=== PATIENT | female | born 1965 | race Two or more races ===

== ENCOUNTER 2020-05-10 09:40 | Emergency (ER) | payer OTHER, SELFPAY ==
[2020-05-10 09:46] VITALS: BP 174/83; PULSE 106; RESP 18; TEMP 37.5; O2SAT 97; BMI 29.2
--- NOTE | 2020-05-10 10:05 | ED_ITS ---
HPI - General Adult General Chief complaint: General Medical Stated complaint: flu symptoms [phone] Time Seen by Provider: 05/10/20 10:01 Source: patient Mode of arrival: ambulatory Limitations: no limitations History of Present Illness HPI narrative: 55 yo female previously healthy here with cough, sneezing, body aches, low grade fever x 4 days. Works has home health aide. Onset (ago): day(s) Associated symptoms: denies other symptoms Treatments prior to arrival: none Related Data Allergies Allergy/AdvReac Type Severity Reaction Status Date / Time No Known Allergies Allergy Unverified 04/22/20 15:46 N.K.D.A. Allergy Unknown Uncoded 12/06/18 00:00 Review of Systems Review of Systems: Yes all other systems are reviewed and are negative Constitutional: Constitutional: Reports body ache(s), Reports chills, Reports fever(s) (low grade temp ), Denies headache(s) and Denies weakness Eyes: Eyes: Denies change in vision ENT: Reports system reviewed and no additional complaints, except as documented, Denies dizziness and Denies headache(s) Comments: sneezing, rhinorrhea Cardiovascular: Cardiovascular: Denies chest pain, Denies leg edema and Denies dyspnea Respiratory: Respiratory: Reports cough and Denies dyspnea Gastrointestinal: Gastrointestinal: Denies abdominal pain, Denies diarrhea, Denies nausea and Denies vomiting Genitourinary: Genitourinary: Reports no additional female genitourinary complaints Musculoskeletal: Musculoskeletal: Denies abnormal gait, Reports myalgias, Denies arthralgias, Denies joint swelling, Denies numbness and Denies tingling Integumentary/Breasts: Skin/Breast: Denies rash Neurologic: Denies Abnormal speech present, Denies abnormal gait, Denies dizziness, Denies headache(s), Denies numbness, Denies tingling and Denies weakness [facility] Past Medical History Attestation statement: The following information was validated with the patient. Source: obtained from family Medical History HTN (hypertension) Kidney stones Social History Social History Advance Directives: No Advance Directives Information Provided: No Physical Exam Vital Signs and I&O and Narrative: Vital Signs and I&O: Vital Signs Temp 99.5 F 05/10/20 09:46 Pulse 106 H 05/10/20 09:46 Resp 18 05/10/20 09:46 BP 174/83 H 05/10/20 09:46 Pulse Ox 97 05/10/20 09:46 Intake & Output 05/09/20 05/10/20 05/10/20 18:59 06:59 18:59 Weight 72.575 kg Body Mass Index 29.2 Const: General: healthy appearing, comfortable and no acute distress Orientation/consciousness: patient oriented x3 Limitations: no limitations HENMT: Head: Yes normal to inspection Ears: hearing grossly normal bilaterally General nose exam: Normal external nose present Face and sinus: Yes normal facial exam Mouth: Normal oral and palatal mucosa present Throat: Yes posterior oropharynx normal Eyes: General: appearance normal, both eyes and all related structures Pupils: Equal, round and reactive pupils present Neck: Neck: Yes normal visual inspection Lymphatic: no lymphadenopathy noted Chest: Chest palpation & inspection: normal inspection of the chest Resp: Effort & Inspection: normal respiratory effort Auscultation: clear to auscultation bilaterally Cardio: Rate: regular rate Rhythm: regular rhythm GI: Inspection: Yes normal to inspection Back/Spine/Pelvis: Thoracic/Lumbar Spine: thoracic and lumbar spine normal to inspection Skin: General skin exam: no rashes or lesions noted Neuro: General: patient oriented x3 Cranial nerves: Yes Equal, round and reactive pupils present Speech: No Abnormal speech present Gait exam (Neuro): Normal gait present Motor exam (neuro): 5/5 motor strength present throughout and Motor abnormalities not present Sensory Exam: Normal double simultaneous stimulation for sensation Extrem: General: Yes normal to inspection Medical Decision Making MDM Narrative Medical decision making narrative: Exam c/w with viral syndrome. Exam is benign. Well appearing with stable vital signs. COVID testing sent. Reviewed worrisome signs/symptoms with patient and when to return to ED. Comfortable with discharge home. Discharge Plan Discharge Clinical Impression: Viral syndrome Patient Disposition: Home, Self-Care Instructions: Viral Syndrome (ED) Additional Instructions: We will call you in 1-2 days with your test results Motrin or Tylenol if able as needed for pain or fever Increase fluids, rest Referrals: Ruddy Lunsford MD [Primary Care Provider] - 2 days (if no better) Stand Alone Forms: Work/School Release Interventions: ED Discharge Assessment Last Done: 05/10/20 10:40 Discharge Date/Time: 05/10/20 10:45
== END 2020-05-10 10:45 | disposition home or self-care (01) ==
LOC: HO.ED 10:20
PROVIDERS: Emergency Provider Internal Medicine; PCP Internal Medicine
DX: B34.9 Viral infection, unspecified (principal); Z20.828 Contact with and (suspected) exposure to other viral communicable diseases
CPT/HCPCS: 36415; 87635; 99283

== ENCOUNTER 2020-05-24 09:38 | Outpatient (REF) | payer OTHER, SELFPAY | END 2020-05-24 09:39 | disposition home or self-care (01) | LOC: HO.LAB 09:38 | PROVIDERS: PCP Internal Medicine; Visit Provider Internal Medicine | DX: Z20.828 Contact with and (suspected) exposure to other viral communicable diseases (principal) | CPT/HCPCS: 87635 ==

== ENCOUNTER 2020-06-07 09:27 | Outpatient (REF) | payer OTHER, SELFPAY | END 2020-06-07 09:28 | disposition home or self-care (01) | LOC: HO.LAB 09:27 | PROVIDERS: PCP Internal Medicine; Visit Provider Internal Medicine | DX: Z20.828 Contact with and (suspected) exposure to other viral communicable diseases (principal) | CPT/HCPCS: U0003 ==

== ENCOUNTER 2020-08-02 08:44 | Outpatient (REF) | payer OTHER, SELFPAY ==
[2020-08-02 09:51] LABS: MANUAL DIFF FLAG NO
[2020-08-02 09:58] LABS: Glucose Urine UA NEG (NEG); Leukocyte Esterase Urine 1+ (NEG); Nitrite Urine POS (NEG); Specific Gravity - Urine 1.025 (1.005-1.025); Urine Blood TRACE (NEG); Urine Ketones NEG (NEG); Urine Protein NEG (NEG-TRACE)
[2020-08-02 10:03] LABS: Appearance Urine HAZY; Basophils Percent Auto 0.7 % (0-2); Color Urine YELLOW; Eosinophils Absolute Auto 0.2 X10*3/uL (0.0-0.4); Eosinophils Percent Auto 3.9 % (0-4); Hematocrit 40.9 % (37-47); Hemoglobin 12.6 g/dl (12.0-16.0); Imm Gran Abs Auto 0.02 X10*3/uL (0.00-0.03); Imm Gran Pct Auto 0.3 % (0.0-0.4); Lymphocytes Percent Auto 33.4 % (20-40); Mean Corpuscular HGB Conc 30.8 g/dl (31.0-35.0); Mean Corpuscular Hemoglobin 29.5 pg (27.0-33.0); Mean Corpuscular Volume 95.8 fL (80-98); Mean Platelet Volume 12.7 fL (9.4-12.3); Monocytes Absolute Auto 0.5 X10*3/uL (0.1-1.2); Monocytes Percent Auto 8.4 % (2-11); Neutrophils Absolute Auto 3.2 X10*3/uL (2.0-8.3); Neutrophils Percent Auto 53.3 % (45-73); Platelet Count 182 X10*3/uL (160-400); Red Blood Count 4.27 X10*6/uL (4.20-5.50); White Blood Count 5.9 X10*3/uL (4.8-10.8)
[2020-08-02 10:29] LABS: Alanine Aminotransferase 30 U/L (0-31); Albumin Level 4.6 g/dL (3.5-5.0); Alkaline Phosphatase 64 U/L (39-117); Anion Gap 13 (12-20); Aspartate Amino Transferase 22 U/L (5-31); Bilirubin Total 0.7 mg/dL (0.0-1.0); Blood Urea Nitrogen 14 mg/dL (9-16); Calcium 9.3 mg/dL (8.4-10.2); Carbon Dioxide 29 mmol/L (22-29); Chloride 106 mmol/L (96-108); Cholesterol 184 mg/dL; Estimated Glomerular Filt Rate > 60; Glucose Fasting 97 mg/dL (60-99); HDL Cholesterol 54 mg/dL; LDL Cholesterol Calculated 95 mg/dl; Potassium 5.3 mmol/l (3.3-5.1); Sodium 143 mmol/L (135-145); Total Protein 7.4 g/dL (6.5-8.0); Triglycerides 177 mg/dL
[2020-08-02 10:30] LABS: Bacteria Urine 3+ /LPF; Squamous Epithelial Cell Urine 1+ /LPF; WBC Urine 30-49 /HPF (0-4)
== END 2020-08-02 08:45 | disposition home or self-care (01) ==
LOC: HO.LAB 08:44
PROVIDERS: Visit Provider Internal Medicine
DX: I10 Essential (primary) hypertension (principal); R31.9 Hematuria, unspecified; K21.9 Gastro-esophageal reflux disease without esophagitis; E55.9 Vitamin D deficiency, unspecified; E78.5 Hyperlipidemia, unspecified; R79.89 Other specified abnormal findings of blood chemistry
CPT/HCPCS: 36415; 80053; 80061; 81001; 82306; 85025; 87086; 87088; 87186

== ENCOUNTER 2020-10-29 08:44 | Outpatient (REF) | payer OTHER, SELFPAY ==
[2020-10-29 09:33] LABS: MANUAL DIFF FLAG NO
[2020-10-29 09:38] LABS: Basophils Percent Auto 0.5 % (0-2); Eosinophils Absolute Auto 0.2 X10*3/uL (0.0-0.4); Eosinophils Percent Auto 3.3 % (0-4); Hematocrit 39.9 % (37-47); Hemoglobin 12.4 g/dl (12.0-16.0); Imm Gran Abs Auto 0.01 X10*3/uL (0.00-0.03); Imm Gran Pct Auto 0.2 % (0.0-0.4); Lymphocytes Absolute Auto 2.1 X10*3/uL (1.2-4.9); Lymphocytes Percent Auto 32.8 % (20-40); Mean Corpuscular HGB Conc 31.1 g/dl (31.0-35.0); Mean Corpuscular Hemoglobin 29.4 pg (27.0-33.0); Mean Corpuscular Volume 94.5 fL (80-98); Mean Platelet Volume 12.4 fL (9.4-12.3); Monocytes Absolute Auto 0.5 X10*3/uL (0.1-1.2); Monocytes Percent Auto 8.1 % (2-11); Neutrophils Absolute Auto 3.5 X10*3/uL (2.0-8.3); Neutrophils Percent Auto 55.1 % (45-73); Platelet Count 188 X10*3/uL (160-400); Red Blood Count 4.22 X10*6/uL (4.20-5.50); Red Cell Distribution Width 14.1 % (11.0-16.0); White Blood Count 6.3 X10*3/uL (4.8-10.8)
[2020-10-29 09:55] LABS: Alanine Aminotransferase 25 U/L (0-31); Albumin Level 4.6 g/dL (3.5-5.0); Alkaline Phosphatase 71 U/L (39-117); Anion Gap 14 (12-20); Aspartate Amino Transferase 17 U/L (5-31); Bilirubin Total 0.8 mg/dL (0.0-1.0); Blood Urea Nitrogen 19 mg/dL (9-16); Calcium 9.5 mg/dL (8.4-10.2); Carbon Dioxide 29 mmol/L (22-29); Chloride 107 mmol/L (96-108); Cholesterol 197 mg/dL; Estimated Glomerular Filt Rate 57; Glucose Fasting 103 mg/dL (60-99); Glucose Urine UA NEG (NEG); HDL Cholesterol 57 mg/dL; LDL Cholesterol Calculated 107 mg/dl; Leukocyte Esterase Urine 1+ (NEG); Nitrite Urine POS (NEG); Potassium 5.2 mmol/L (3.3-5.1); Sodium 145 mmol/L (135-145); Total Protein 7.5 g/dL (6.5-8.0); Triglycerides 168 mg/dL; UACC Culture Trigger YES; Urine Blood TRACE (NEG); Urine Ketones NEG (NEG); Urine Protein NEG (NEG-TRACE)
[2020-10-29 10:07] LABS: Appearance Urine HAZY; Color Urine YELLOW
[2020-10-29 10:17] LABS: Bacteria Urine 2+ /LPF; Squamous Epithelial Cell Urine 1+ /LPF; WBC Urine 50-75 /HPF (0-4)
[2020-10-29 10:19] LABS: TSH reflex Free T4 2.07 uIU/mL (0.32-4.0); Vitamin D 25-OH Total 28.6 ng/mL (>30)
== END 2020-10-29 08:45 | disposition home or self-care (01) ==
LOC: HO.LAB 08:44
PROVIDERS: PCP Internal Medicine; Visit Provider Internal Medicine
DX: E66.9 Obesity, unspecified (principal); E78.00 Pure hypercholesterolemia, unspecified; I10 Essential (primary) hypertension; R79.89 Other specified abnormal findings of blood chemistry; R31.21 Asymptomatic microscopic hematuria; K21.9 Gastro-esophageal reflux disease without esophagitis; E55.9 Vitamin D deficiency, unspecified
CPT/HCPCS: 36415; 80053; 80061; 81001; 81003; 82306; 84443; 85025; 87086; 87088; 87186

== ENCOUNTER 2021-02-01 08:39 | Outpatient (REF) | payer OTHER, SELFPAY ==
[2021-02-01 09:17] LABS: MANUAL DIFF FLAG NO
[2021-02-01 09:22] LABS: Basophils Percent Auto 0.5 % (0-2); Eosinophils Absolute Auto 0.2 X10*3/uL (0.0-0.4); Hematocrit 39.4 % (37-47); Hemoglobin 12.2 g/dl (12.0-16.0); Imm Gran Abs Auto 0.01 X10*3/uL (0.00-0.03); Imm Gran Pct Auto 0.2 % (0.0-0.4); Lymphocytes Absolute Auto 1.9 X10*3/uL (1.2-4.9); Lymphocytes Percent Auto 31.4 % (20-40); Mean Corpuscular Volume 93.8 fL (80-98); Mean Platelet Volume 12.1 fL (9.4-12.3); Monocytes Absolute Auto 0.5 X10*3/uL (0.1-1.2); Monocytes Percent Auto 8.1 % (2-11); Neutrophils Absolute Auto 3.4 X10*3/uL (2.0-8.3); Neutrophils Percent Auto 56.8 % (45-73); Platelet Count 185 X10*3/uL (160-400); Red Cell Distribution Width 13.4 % (11.0-16.0); White Blood Count 5.9 X10*3/uL (4.8-10.8)
[2021-02-01 09:42] LABS: Alanine Aminotransferase 19 U/L (0-31); Albumin Level 4.5 g/dL (3.5-5.0); Alkaline Phosphatase 71 U/L (39-117); Anion Gap 13 (12-20); Aspartate Amino Transferase 18 U/L (5-31); Bilirubin Total 0.5 mg/dL (0.0-1.0); Blood Urea Nitrogen 15 mg/dL (9-16); Calcium 9.4 mg/dL (8.4-10.2); Carbon Dioxide 29 mmol/L (22-29); Chloride 107 mmol/L (96-108); Cholesterol 174 mg/dL; Estimated Glomerular Filt Rate > 60; Glucose Fasting 104 mg/dL (60-99); HDL Cholesterol 49 mg/dL; LDL Cholesterol Calculated 97 mg/dl; Potassium 4.7 mmol/L (3.3-5.1); Sodium 144 mmol/L (135-145); Total Protein 7.3 g/dL (6.5-8.0); Triglycerides 141 mg/dL
[2021-02-01 10:00] LABS: Urine Cytology See Pathology rpt
[2021-02-01 10:05] LABS: TSH reflex Free T4 0.85 uIU/mL (0.32-4.0); Vitamin D 25-OH Total 30.4 ng/mL (>30)
[2021-02-01 10:16] LABS: Glucose Urine UA NEG (NEG); Leukocyte Esterase Urine 3+ (NEG); Nitrite Urine POS (NEG); UACC Culture Trigger YES; Urine Blood 1+ (NEG); Urine Ketones NEG (NEG); Urine Protein NEG (NEG-TRACE)
[2021-02-01 10:22] LABS: Appearance Urine HAZY; Color Urine YELLOW
[2021-02-01 10:35] LABS: Bacteria Urine 2+ /LPF; Mucus Urine 2+ /LPF; Renal Epithelial Cells Urine TRACE /LPF; Squamous Epithelial Cell Urine 1+ /LPF; WBC Urine TNTC /HPF (0-4)
== END 2021-02-01 08:40 | disposition home or self-care (01) ==
LOC: HO.LAB 08:39
PROVIDERS: PCP Internal Medicine; Visit Provider Internal Medicine
DX: I10 Essential (primary) hypertension (principal); K21.9 Gastro-esophageal reflux disease without esophagitis; R31.21 Asymptomatic microscopic hematuria; E66.9 Obesity, unspecified; E78.00 Pure hypercholesterolemia, unspecified; R79.89 Other specified abnormal findings of blood chemistry; E55.9 Vitamin D deficiency, unspecified
CPT/HCPCS: 36415; 80053; 80061; 81001; 81003; 82306; 84443; 85025; 87086; 87088; 87186; 88112

== ENCOUNTER 2021-02-28 13:20 | Outpatient (REF) | payer OTHER, SELFPAY ==
--- NOTE | ~2021-02-28 | MM_ITS ---
EXAMINATION: MM SCREENING DIGITAL BREAST TOMOSYNTHESIS, BILATERAL CLINICAL INFORMATION: Screening. Asymptomatic. The lifetime risk of breast cancer based on the Tyrer-Cuzick Model is 13%. COMPARISON: Mammography: 02/24/2020, 02/18/2019, 12/23/2015 TECHNIQUE: Digital breast tomosynthesis is performed in both the craniocaudal and mediolateral oblique views along with computer-aided detection (CAD). Synthesized 2D images are generated from the tomosynthesis. FINDINGS: There are scattered areas of fibroglandular density (ACR BI-RADS breast composition Category b). There are no significant masses, abnormal calcifications, or other abnormalities. Some small circumscribed nodularity again seen central and outer left breast, possibly intramammary nodes similar to prior exam. Small stable nodule central outer right breast. No developing density. The axilla and skin contours are unremarkable. MM/MM tomosynthesis screening BI IMPRESSION: No mammographic evidence of malignancy. ASSESSMENT: BI-RADS 2: Benign RECOMMENDATION: Routine annual mammography screening. This patient's information was entered into a reminder system with a target due date for their next mammogram.
== END 2021-02-28 13:21 | disposition home or self-care (01) ==
LOC: HO.MAMMO 13:20
PROVIDERS: Visit Provider Internal Medicine
DX: Z12.31 Encounter for screening mammogram for malignant neoplasm of breast (principal)
CPT/HCPCS: 77063; 77067

== ENCOUNTER 2021-03-16 10:43 | Outpatient (REF) | payer OTHER, SELFPAY ==
[2021-03-17 04:19] LABS: CT PCR NOT DETECTED (Not Detect.); NG PCR NOT DETECTED (Not Detect.)
[2021-03-17 09:24] LABS: BV Int Neg Control Negative (Negative); BV Int Pos Control Positive (Positive)
[2021-03-18 22:46] LABS: HPV mRNA E6/E7 rflx Not Detected (Not Detected)
== END 2021-03-16 10:44 | disposition home or self-care (01) ==
LOC: HO.LAB 10:43
PROVIDERS: PCP Internal Medicine; Visit Provider Advanced Practice Midwife
DX: Z01.419 Encounter for gynecological examination (general) (routine) without abnormal findings (principal); Z11.51 Encounter for screening for human papillomavirus (HPV); Z20.2 Contact with and (suspected) exposure to infections with a predominantly sexual mode of transmission
CPT/HCPCS: 87480; 87491; 87510; 87591; 87624; 87660; 88142

== ENCOUNTER → 2021-04-28 12:51 | Outpatient (BNVA) | payer OTHER, SELFPAY | PROVIDERS: PCP Internal Medicine; Referring Provider Internal Medicine; Visit Provider Physician Assistant | DX: Z12.11 Encounter for screening for malignant neoplasm of colon (principal) | CPT/HCPCS: 99202 ==

== ENCOUNTER 2021-05-06 08:17 | Outpatient (REF) | payer OTHER, SELFPAY ==
[2021-05-06 08:38] LABS: MANUAL DIFF FLAG NO
[2021-05-06 09:03] LABS: Basophils Percent Auto 0.5 % (0-2); Eosinophils Absolute Auto 0.2 X10*3/uL (0.0-0.4); Hemoglobin 12.2 g/dl (12.0-16.0); Imm Gran Abs Auto 0.02 X10*3/uL (0.00-0.03); Imm Gran Pct Auto 0.3 % (0.0-0.4); Lymphocytes Absolute Auto 1.8 X10*3/uL (1.2-4.9); Lymphocytes Percent Auto 30.5 % (20-40); Mean Corpuscular HGB Conc 31.3 g/dl (31.0-35.0); Mean Corpuscular Hemoglobin 29.7 pg (27.0-33.0); Mean Corpuscular Volume 94.9 fL (80-98); Mean Platelet Volume 12.1 fL (9.4-12.3); Monocytes Absolute Auto 0.4 X10*3/uL (0.1-1.2); Monocytes Percent Auto 7.4 % (2-11); Neutrophils Absolute Auto 3.5 X10*3/uL (2.0-8.3); Neutrophils Percent Auto 58.3 % (45-73); Platelet Count 183 X10*3/uL (160-400); Red Blood Count 4.11 X10*6/uL (4.20-5.50); Red Cell Distribution Width 13.6 % (11.0-16.0); White Blood Count 5.9 X10*3/uL (4.8-10.8)
[2021-05-06 09:20] LABS: Appearance Urine CLEAR; Color Urine YELLOW; Glucose Urine UA NEG (NEG); Leukocyte Esterase Urine NEG (NEG); Nitrite Urine NEG (NEG); UACC Culture Trigger NO; Urine Blood TRACE (NEG); Urine Ketones NEG (NEG); Urine Protein NEG (NEG-TRACE)
[2021-05-06 09:35] LABS: RBC Urine 0-2 /HPF (0); Squamous Epithelial Cell Urine TRACE /LPF; WBC Urine 0 /HPF (0-4)
[2021-05-06 09:45] LABS: Alanine Aminotransferase 21 U/L (0-31); Albumin Level 4.3 g/dL (3.5-5.0); Alkaline Phosphatase 63 U/L (39-117); Anion Gap 13 (12-20); Aspartate Amino Transferase 17 U/L (5-31); Bilirubin Total 0.8 mg/dL (0.0-1.0); Blood Urea Nitrogen 15 mg/dL (9-16); Calcium 9.4 mg/dL (8.4-10.2); Carbon Dioxide 28 mmol/L (22-29); Chloride 107 mmol/L (96-108); Cholesterol 198 mg/dL; Estimated Glomerular Filt Rate > 60; Glucose Fasting 102 mg/dL (60-99); HDL Cholesterol 55 mg/dL; LDL Cholesterol Calculated 111 mg/dl; Potassium 4.6 mmol/L (3.3-5.1); Sodium 143 mmol/L (135-145); Triglycerides 164 mg/dL
[2021-05-06 09:49] LABS: TSH reflex Free T4 2.02 uIU/mL (0.32-4.0); Vitamin D 25-OH Total 26.9 ng/mL (>30)
== END 2021-05-06 08:18 | disposition home or self-care (01) ==
LOC: HO.LAB 08:17
PROVIDERS: PCP Internal Medicine; Visit Provider Internal Medicine
DX: I10 Essential (primary) hypertension (principal); K21.9 Gastro-esophageal reflux disease without esophagitis; E78.00 Pure hypercholesterolemia, unspecified; R94.5 Abnormal results of liver function studies; E66.9 Obesity, unspecified; E55.9 Vitamin D deficiency, unspecified
CPT/HCPCS: 36415; 80053; 80061; 81001; 82306; 84443; 85025

== ENCOUNTER 2021-07-07 08:13 | Day surgery (SDC) | payer OTHER, SELFPAY ==
[2021-06-29 09:45] VITALS: BMI 30.5
--- NOTE | 2021-07-06 10:17 | HO.ANESPROP2 ---
Documented by User: Patricia Gonzalez NP 07/06/21 10:20 HPI - Anesthesia Eval Consult details Narrative: 56yo F for Colonoscopy PMFSH Active Problems Active Problems: All Active Problems (Updated 06/29/21 @ 09:45 by Purvi Gregorio, YENY) Annual physical exam (Acute) Colon cancer screening (Acute) Breast cancer screening by mammogram (Acute) Cervical cancer screening (Acute) Sinusitis (Acute) Urinary tract infection due to Klebsiella species (Acute) Well woman exam with routine gynecological exam (Acute) Encounter for screening colonoscopy (Acute) Dermatitis (Acute) Obesity (BMI 30-39.9) (Acute) Insomnia (Acute) Hematuria (Acute) GERD without esophagitis (Acute) Elevated LFTs (Acute) Vitamin D deficiency (Acute) Cervical spondylosis (Acute) Benign essential hypertension (Acute) Pure hypercholesterolemia (Acute) Past Medical History Medical History Benign essential hypertension Cervical spondylosis Closed fracture of left ankle COVID-19 vaccine series completed Dermatitis Elevated LFTs GERD without esophagitis Hematuria HTN (hypertension) Insomnia Kidney stones Obesity (BMI 30-39.9) Post-operative nausea and vomiting Pure hypercholesterolemia Vitamin D deficiency White coat syndrome with hypertension Family History Family History Father Heart attack Mother Breast cancer Sister Breast cancer Diabetes Surgical History Surgical History History of fracture of left ankle History of lithotripsy Social History Social History Housing: Apartment Are you a primary career development associate to a significant other at home: No Do you presently have visiting nurse or other home services: No Alcohol intake: never Patient Tobacco Use Status: Never used Tobacco Second Hand Smoke Exposure: No Use of substances other than those prescribed or required for medical reasons: No Have you been hit, kicked, punched, or otherwise hurt by someone within the past year? 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 Allergies Allergy/AdvReac Type Severity Reaction Status Date / Time No Known Allergies Allergy Verified 06/20/21 12:48 Exam Exam Date and Time: July 06, 2021 1017 Height,Weight and Vital Signs: Height 5 ft 2 in Weight 75.75 kg Assessment and Plan Assessment Anesthesia Assessment: Chart Reviewed Documented by User: Shayne Wright MD 07/07/21 08:42 PMFSH Past Medical History Medical History Benign essential hypertension Cervical spondylosis Closed fracture of left ankle COVID-19 vaccine series completed Dermatitis Elevated LFTs GERD without esophagitis Hematuria HTN (hypertension) Insomnia Kidney stones Obesity (BMI 30-39.9) Post-operative nausea and vomiting Pure hypercholesterolemia Vitamin D deficiency White coat syndrome with hypertension Family History Family History Father Heart attack Mother Breast cancer Sister Breast cancer Diabetes Surgical History Surgical History History of fracture of left ankle History of lithotripsy Social History Social History Housing: Apartment Are you a primary career development associate to a significant other at home: No Do you presently have visiting nurse or other home services: No Alcohol intake: never Patient Tobacco Use Status: Never used Tobacco Second Hand Smoke Exposure: No Use of substances other than those prescribed or required for medical reasons: No Have you been hit, kicked, punched, or otherwise hurt by someone within the past year? 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
[2021-07-07 08:39] VITALS: BP 163/101; PULSE 112; RESP 20; TEMP 36.8; O2SAT 99
--- NOTE | 2021-07-07 08:39 | MHC.SHP ---
Pre-Procedural Eval Section A Date of Service: 07/07/21 Section B Chief Complaint: screening Relevant Family History (Specify if Yes): No Relevant Social History: None Present Medications: see Short Stay Collaborative assessment Medical History: Significant History (Benign essential hypertension Cervical spondylosis Closed fracture of left ankle COVID-19 vaccine series completed Dermatitis Elevated LFTs GERD without esophagitis Hematuria HTN (hypertension) Insomnia Kidney stones Obesity (BMI 30-39.9) Post-operative nausea and vomiting Pure hypercholesterolemia ) History of Previous Operations: Relevant previous surgery/procedure and date(s) (History of fracture of left ankle History of lithotripsy) Allergies: Allergies Allergy/AdvReac Type Severity Reaction Status Date / Time No Known Allergies Allergy Verified 06/20/21 12:48 Review of Systems Sugical H&P ROS: Negative: Constitution, Cardiovascular, Respiratory, Neurological, Psychiatric, Hem-Onc, Allergic/Immunologic, Gastrointestinal, Genitourinary, Musculoskeletal, Integumentary, Endocrine and Eyes/Ears/Nose/Throat Exam Surgical H&P Exam: Normal: HEENT, Normal: Heart, Normal: Lungs, Normal: Extremities, Normal: Abdomen, Normal: Skin and Normal: Neurological Plan Diagnosis/Plan: Unchanged I have reviewed the history and physical and performed a pertinent physical examination on my patient. No changes have occurred unless specified.
--- NOTE | 2021-07-07 08:43 | HO.ANESPROP2 ---
[facility] Active Problems Active Problems: All Active Problems (Updated 06/29/21 @ 09:45 by Purvi Gregorio RN) Annual physical exam (Acute) Colon cancer screening (Acute) Breast cancer screening by mammogram (Acute) Cervical cancer screening (Acute) Sinusitis (Acute) Urinary tract infection due to Klebsiella species (Acute) Well woman exam with routine gynecological exam (Acute) Encounter for screening colonoscopy (Acute) Dermatitis (Acute) Obesity (BMI 30-39.9) (Acute) Insomnia (Acute) Hematuria (Acute) GERD without esophagitis (Acute) Elevated LFTs (Acute) Vitamin D deficiency (Acute) Cervical spondylosis (Acute) Benign essential hypertension (Acute) Pure hypercholesterolemia (Acute) Past Medical History Medical History Benign essential hypertension Cervical spondylosis Closed fracture of left ankle COVID-19 vaccine series completed Dermatitis Elevated LFTs GERD without esophagitis Hematuria HTN (hypertension) Insomnia Kidney stones Obesity (BMI 30-39.9) Post-operative nausea and vomiting Pure hypercholesterolemia Vitamin D deficiency White coat syndrome with hypertension Family History Family History Father Heart attack Mother Breast cancer Sister Breast cancer Diabetes Family history of problems with anesthesia: No Surgical History Surgical History History of fracture of left ankle History of lithotripsy History of Problems with Anesthesia: No Social History Social History Housing: Apartment Are you a primary home health care respiratory therapist to a significant other at home: No Do you presently have visiting nurse or other home services: No Alcohol intake: never Patient Tobacco Use Status: Never used Tobacco Second Hand Smoke Exposure: No Use of substances other than those prescribed or required for medical reasons: No Have you been hit, kicked, punched, or otherwise hurt by someone within the past year? 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 Allergies Allergy/AdvReac Type Severity Reaction Status Date / Time No Known Allergies Allergy Verified 06/20/21 12:48 Active Medications: Current Medications Lactated Ringer's (Lr) 1,000 mls @ 100 mls/hr IVCONT .Q10H BENJAMÍN Exam Exam Date and Time: July 07, 2021 0843 Height,Weight and Vital Signs: Height 5 ft 2 in Weight 75.75 kg Last Vital Signs Temp 98.3 F 07/07/21 08:39 Pulse 112 H 07/07/21 08:39 Resp 20 07/07/21 08:39 BP 163/101 H 07/07/21 08:39 Pulse Ox 99 07/07/21 08:39 Assessment and Plan Assessment Anesthesia Assessment: Anesthesia Plan Discussed and Chart Reviewed Final Anesthetic Review Family History of Problems with Anesthesia: No History of Problems with Anesthesia: No NPO: Yes ASA Class: II Final Preanesthetic Review: No Changes in Pt Med Stat Patient Risk: Intermediate Anesthetic Plan Anesthetic Plan: MAC: Disposition: Standard PACU
[2021-07-07] MEDS: Lactated Ringers 1,000 ML 100 ML IVCONT (08:56)
--- NOTE | 2021-07-07 09:17 | P.OP_ITS ---
Operative Note Operative Note Date of Service: 07/07/21 Narrative: Operative Information Procedure Description: Colonoscopy COLONOSCOPY Instrument: Olympus variable stiffness pediatric scope 190L Colonoscopy Monitoring: Vital signs and clinical assessment, continuous EKG monitoring, Pulse oximetry, Carbon Dioxide monitoring and blood pressure monitoring were done throughout the procedure. Colon withdrawal time was 14 minutes. Procedure: The patient was placed in the left lateral decubitis position and pre-procedure medications were administered. After a digital rectal examination of the ano-rectum, the video colonoscope was inserted into the rectum and advanced through the colon to the cecum/TI. The colonoscope was slowly withdrawn in a retrograde panoramic fashion and the colon mucosa was carefully examined including a retroflexed view of the rectum. Findings and interventions are described below. Procedure Difficulty: Findings: Terminal Ileum-normal Cecum: few diverticula seen Ascending Colon: normal Transverse Colon -normal Descending Colon: x 4 sessile polyps removed with cold snare ranging from 6-13 mm in length. Sigmoid Colon: moderate severe diverticulosis with mucosal hypertrophy Rectum: Retroflexion with mediums sized internal hemorrhoids, grade I Anorectum - normal Colon preparation: [place] Bowel Preparation Scale Right colon; 2 Transverse colon: 2 Left colon; 2 (0 = Unprepared colon segment with mucosa not seen due to solid stool that cannot be cleared. 1 = Portion of mucosa of the colon segment seen, but other areas of the colon segment not well seen due to staining, residual stool and/or opaque liquid. 2 = Minor amount of residual staining, small fragments of stool and/or opaque liquid, but mucosa of colon segment seen well. 3 = Entire mucosa of colon segment seen well with no residual staining, small fragments of stool or opaque liquid) Impression and Post Procedure Diagnosis: polyps internal hemorrhoids diverticular disease Plan: High fiber diet leaflet Avoid straining at stool, epsom salts and sitz bath, anusol supps or cream Repeat Colonoscopy in 3-4 years if adenomatous polyps, otherwise 10 years or earlier if clinically indicated Above findings were reviewed with the patient and relevant handouts were provided if indicated.
--- NOTE | 2021-07-07 09:17 | P.BOP_ITS ---
Brief Operative Note Date of Service: 07/07/21 Pre-op diagnosis: colon screening Post-op diagnosis: same Procedure: see op note Surgeon: Madyson Harvey MD Anesthesia: MAC Was an Pediatric Hospitalist used for this Procedure?: No Estimated blood loss (mL): 0 Condition: stable Disposition: PACU
[2021-07-07 09:58] VITALS: BP 138/75; PULSE 81; RESP 20; TEMP 36.8; O2SAT 98
[2021-07-07 10:16] VITALS: BP 131/84; PULSE 76; RESP 16; TEMP 36.8; O2SAT 99
== END 2021-07-07 10:36 | disposition home or self-care (01) ==
PROVIDERS: PCP Internal Medicine; Visit Provider Internal Medicine Gastroenterology
PROC: 0DJD8ZZ Inspection of Lower Intestinal Tract, Via Natural or Artificial Opening Endoscopic (ICD-10-PCS; CPT 45378; principal; 2021-07-07 09:20)
DX: Z12.11 Encounter for screening for malignant neoplasm of colon (principal); D12.4 Benign neoplasm of descending colon; K57.30 Diverticulosis of large intestine without perforation or abscess without bleeding; K64.0 First degree hemorrhoids; I10 Essential (primary) hypertension; E78.00 Pure hypercholesterolemia, unspecified; E55.9 Vitamin D deficiency, unspecified; E66.9 Obesity, unspecified; Z68.30 Body mass index [BMI] 30.0-30.9, adult
CPT/HCPCS: 45385; 88305

== ENCOUNTER → 2021-09-01 12:20 | Outpatient (BNVA) | payer OTHER, SELFPAY | PROVIDERS: PCP Internal Medicine; Referring Provider Internal Medicine; Visit Provider Physician Assistant | DX: K64.9 Unspecified hemorrhoids (principal); K57.30 Diverticulosis of large intestine without perforation or abscess without bleeding; D36.9 Benign neoplasm, unspecified site | CPT/HCPCS: 99212 ==

== ENCOUNTER 2021-09-27 08:21 | Outpatient (REF) | payer OTHER, SELFPAY ==
[2021-09-27 09:00] LABS: MANUAL DIFF FLAG NO
[2021-09-27 09:44] LABS: Basophils Percent Auto 0.5 % (0-2); Eosinophils Absolute Auto 0.2 X10*3/uL (0.0-0.4); Eosinophils Percent Auto 3.9 % (0-4); Hematocrit 41.2 % (37.0-47.0); Hemoglobin 12.9 g/dl (12.0-16.0); Imm Gran Abs Auto 0.01 X10*3/uL (0.00-0.03); Imm Gran Pct Auto 0.2 % (0.0-0.4); Lymphocytes Absolute Auto 2.2 X10*3/uL (1.2-4.9); Lymphocytes Percent Auto 36.3 % (20-40); Mean Corpuscular HGB Conc 31.3 g/dl (31.0-35.0); Mean Corpuscular Hemoglobin 29.4 pg (27.0-33.0); Mean Corpuscular Volume 93.8 fL (80.0-98.0); Mean Platelet Volume 12.5 fL (9.4-12.3); Monocytes Absolute Auto 0.5 X10*3/uL (0.1-1.2); Monocytes Percent Auto 7.9 % (2-11); Neutrophils Absolute Auto 3.1 x10*3/uL (2.0-8.3); Neutrophils Percent Auto 51.2 % (45-73); Platelet Count 181 X10*3/uL (160-400); Red Blood Count 4.39 X10*6/uL (4.20-5.50); Red Cell Distribution Width 13.6 % (11.0-16.0)
[2021-09-27 10:21] LABS: Alanine Aminotransferase 19 U/L (0-31); Albumin Level 4.4 g/dL (3.5-5.0); Alkaline Phosphatase 62 U/L (39-117); Anion Gap 13 (12-20); Aspartate Amino Transferase 18 U/L (5-31); Bilirubin Total 0.8 mg/dL (0.0-1.0); Blood Urea Nitrogen 12 mg/dL (9-16); Calcium 9.4 mg/dL (8.4-10.2); Carbon Dioxide 28 mmol/L (22-29); Chloride 106 mmol/L (96-108); Cholesterol 192 mg/dL; Estimated Glomerular Filt Rate > 60; Glucose Fasting 98 mg/dL (60-99); HDL Cholesterol 52 mg/dL; LDL Cholesterol Calculated 106 mg/dl; Potassium 4.8 mmol/L (3.3-5.1); Sodium 142 mmol/L (135-145); Total Protein 7.2 g/dL (6.5-8.0); Triglycerides 172 mg/dL
[2021-09-27 10:27] LABS: Appearance Urine HAZY; Color Urine YELLOW; Glucose Urine UA NEG (NEG); Leukocyte Esterase Urine NEG (NEG); Nitrite Urine NEG (NEG); UACC Culture Trigger NO; Urine Blood TRACE (NEG); Urine Ketones NEG (NEG); Urine Protein NEG (NEG-TRACE)
[2021-09-27 10:31] LABS: TSH reflex Free T4 1.36 uIU/mL (0.32-4.0); Vitamin D 25-OH Total 26.8 ng/mL (>30)
[2021-09-27 11:27] LABS: RBC Urine 0-2 /HPF (0); Squamous Epithelial Cell Urine TRACE /LPF; WBC Urine 0 /HPF (0-4)
== END 2021-09-27 08:22 | disposition home or self-care (01) ==
LOC: HO.LAB 08:21
PROVIDERS: PCP Internal Medicine; Visit Provider Internal Medicine
DX: I10 Essential (primary) hypertension (principal); E78.00 Pure hypercholesterolemia, unspecified; E55.9 Vitamin D deficiency, unspecified
CPT/HCPCS: 36415; 80053; 80061; 81001; 82306; 84443; 85025

== ENCOUNTER 2021-10-03 12:02 | Outpatient (REF) | payer OTHER, SELFPAY ==
[2021-10-04 04:51] LABS: HBS Num1 31.73 mIU/mL (0-7.99); HBc Num1 0.16 S/CO (0.00-0.79); Hepatitis B Core Antibody Nonreactive (Nonreactive); ~HepC Num1 0.12 S/CO (0.00-0.79); ~Hepatitis B Surface Antibody REACTIVE (Nonreactive); ~Hepatitis C Antibody Nonreactive (Nonreactive)
[2021-10-04 05:00] LABS: HBsAGNum1 0.18 S/CO (0.00-0.99); Hepatitis B Surface Antigen Negative (Negative)
== END 2021-10-03 12:03 | disposition home or self-care (01) ==
LOC: HO.LAB 12:02
PROVIDERS: PCP Internal Medicine; Visit Provider Internal Medicine
DX: Z20.5 Contact with and (suspected) exposure to viral hepatitis (principal)
CPT/HCPCS: 36415; 86704; 86706; 86803; 87340

== ENCOUNTER 2021-12-29 08:21 | Outpatient (REF) | payer OTHER, SELFPAY ==
[2021-12-29 08:44] LABS: MANUAL DIFF FLAG NO
[2021-12-29 09:23] LABS: Basophils Percent Auto 0.7 % (0-2); Eosinophils Absolute Auto 0.2 X10*3/uL (0.0-0.4); Eosinophils Percent Auto 3.7 % (0-4); Hematocrit 38.7 % (37.0-47.0); Hemoglobin 12.1 g/dl (12.0-16.0); Imm Gran Abs Auto 0.02 X10*3/uL (0.00-0.03); Imm Gran Pct Auto 0.4 % (0.0-0.4); Lymphocytes Absolute Auto 2.1 X10*3/uL (1.2-4.9); Lymphocytes Percent Auto 37.3 % (20-40); Mean Corpuscular HGB Conc 31.3 g/dl (31.0-35.0); Mean Corpuscular Hemoglobin 29.6 pg (27.0-33.0); Mean Corpuscular Volume 94.6 fL (80.0-98.0); Mean Platelet Volume 12.3 fL (9.4-12.3); Monocytes Absolute Auto 0.5 X10*3/uL (0.1-1.2); Monocytes Percent Auto 7.9 % (2-11); Neutrophils Absolute Auto 2.9 x10*3/uL (2.0-8.3); Platelet Count 182 X10*3/uL (160-400); Red Blood Count 4.09 X10*6/uL (4.20-5.50); Red Cell Distribution Width 13.6 % (11.0-16.0); White Blood Count 5.7 X10*3/uL (4.8-10.8)
[2021-12-29 09:49] LABS: Appearance Urine CLEAR; Color Urine YELLOW; Glucose Urine UA NEG (NEG); Leukocyte Esterase Urine NEG (NEG); Nitrite Urine NEG (NEG); UACC Culture Trigger NO; Urine Blood TRACE (NEG); Urine Ketones NEG (NEG); Urine Protein NEG (NEG-TRACE)
[2021-12-29 09:52] LABS: Alanine Aminotransferase 19 U/L (0-31); Albumin Level 4.2 g/dL (3.5-5.0); Alkaline Phosphatase 59 U/L (39-117); Anion Gap 12 (12-20); Aspartate Amino Transferase 16 U/L (5-31); Bilirubin Total 0.7 mg/dL (0.0-1.0); Blood Urea Nitrogen 14 mg/dL (9-16); Calcium 9.3 mg/dL (8.4-10.2); Carbon Dioxide 28 mmol/L (22-29); Chloride 106 mmol/L (96-108); Cholesterol 180 mg/dL; Estimated Glomerular Filt Rate > 60; Glucose Fasting 95 mg/dL (60-99); HDL Cholesterol 50 mg/dL; LDL Cholesterol Calculated 96 mg/dl; Potassium 4.4 mmol/L (3.3-5.1); Sodium 142 mmol/L (135-145); Total Protein 6.9 g/dL (6.5-8.0); Triglycerides 174 mg/dL
[2021-12-29 10:17] LABS: TSH reflex Free T4 1.34 uIU/mL (0.32-4.0)
[2021-12-29 10:20] LABS: RBC Urine 0-2 /HPF (0); Squamous Epithelial Cell Urine 2+ /LPF; WBC Urine 0 /HPF (0-4)
== END 2021-12-29 08:22 | disposition home or self-care (01) ==
LOC: HO.LAB 08:21
PROVIDERS: PCP Internal Medicine; Visit Provider Internal Medicine
DX: I10 Essential (primary) hypertension (principal); E55.9 Vitamin D deficiency, unspecified; E78.00 Pure hypercholesterolemia, unspecified
CPT/HCPCS: 36415; 80053; 80061; 81001; 82306; 84443; 85025

== ENCOUNTER 2022-01-09 13:14 | Outpatient (REF) | payer OTHER, SELFPAY ==
--- NOTE | ~2022-01-09 | XR_ITS ---
EXAMINATION: XR LUMBOSACRAL SPINE CLINICAL INFORMATION: Low back pain. COMPARISON: Lumbar spine radiographs on 11/29/2012. TECHNIQUE: 3 views of the lumbosacral spine. FINDINGS: There are 5 [id number] lumbar vertebral bodies. Vertebral body heights are maintained. There is mild intervertebral disc height loss at L5-S1 with tiny endplate osteophytes seen at L4 and L5. Mild facet arthropathy from L5 to S1. The paravertebral soft tissues are within normal limits. The SI joints appear normal. XR/XR lumbar spine 2-3V IMPRESSION: Mild disc height loss at L5-S1 as well as mild L5-S1 facet arthropathy.
== END 2022-01-09 13:15 | disposition home or self-care (01) ==
LOC: HO.XRAY 13:14
PROVIDERS: PCP Internal Medicine; Visit Provider Internal Medicine
DX: M54.50 Low back pain, unspecified (principal)
CPT/HCPCS: 72100

== ENCOUNTER 2022-02-25 10:55 | Emergency (ER) | payer OTHER, SELFPAY ==
--- NOTE | ~2022-02-25 | XR_ITS ---
EXAMINATION: XR ELBOW, RIGHT CLINICAL INFORMATION: History of fall COMPARISON: None TECHNIQUE: Four views of the right elbow. XR/XR elbow RT min 3V FINDINGS AND IMPRESSION: There is a subtle, nondisplaced fracture of the anterolateral radial neck. Otherwise, bones are intact. The anterior and posterior fat pads are displaced from an elbow joint effusion. The alignment is maintained at the radiocapitellar and ulnohumeral joints.
[2022-02-25 11:42] VITALS: BP 167/88; PULSE 92; RESP 18; TEMP 36.4; O2SAT 98; BMI 29.6
--- NOTE | 2022-02-25 12:45 | ED_ITS ---
HPI - Extremity Problem General Chief complaint: Extremity Injury, Upper Stated complaint: R Elbow Injury 02/24/22 Time Seen by Provider: 02/25/22 12:33 Source: patient Mode of arrival: ambulatory Limitations: no limitations History of Present Illness HPI Narrative: 56-year-old female right handed here with reports of right elbow pain. Patient tells me yesterday she tripped and fell catching herself with her right hand. She felt okay initially but this morning when she woke up she noticed some pain over the right elbow with limited range of motion due to pain. She denies any shoulder pain or wrist or hand pain. She denies any head strike or loss of consciousness. No associated weakness, numbness or tingling of the extremity. Related Data Previous Rx's Medication Instructions Recorded miconazole nitrate 2 % topical 1 appl topical BID #85 grams 03/16/21 powder ergocalciferol (vitamin D2) 1,250 1,250 mcg PO QWEEK #4 caps 06/20/21 mcg (50,000 unit) capsule docusate sodium 100 mg capsule 200 mg PO BEDTIME #60 caps 09/01/21 (Colace) methylcellulose (laxative) 500 mg 500 mg PO BID #60 tabs 09/01/21 tablet (Citrucel) polyethylene glycol 3350 17 17 g PO DAILY 30 days #510 grams 09/06/21 gram/dose oral powder trazodone 50 mg tablet 50 mg PO BEDTIME #30 tabs 09/19/21 ibuprofen 600 mg tablet 600 mg PO BID PRN pain 30 days #90 11/03/21 tabs loratadine 10 mg tablet 10 mg PO DAILY #30 tabs 12/05/21 lisinopril 30 mg tablet 30 mg PO DAILY #90 tabs 12/27/21 atorvastatin 10 mg tablet 10 mg PO DAILY #90 tabs 01/03/22 lorazepam 0.5 mg tablet See Rx Instructions .Route 01/06/22 .COMPLEX PRN anxiety #10 tabs omeprazole 20 mg capsule,delayed 20 mg PO QAM 30 days #30 caps 02/15/22 release tramadol 50 mg tablet 50 mg PO TID PRN pain 30 days #90 02/15/22 tabs Allergies Allergy/AdvReac Type Severity Reaction Status Date / Time naproxen Allergy Vomiting Verified 02/25/22 11:44 Review of Systems Review of Systems: Yes all other systems are reviewed and are negative Constitutional: Constitutional: Reports no additional constitutional complaints, Denies body ache(s), Denies chills, Denies fever(s), Denies headache(s) and Denies weakness Eyes: Eyes: Reports no additional eye complaints and Denies change in vision ENT: Reports system reviewed and no additional complaints, except as documented, Denies dizziness, Denies headache(s), Denies nasal congestion, Denies nasal discharge and Denies neck pain Cardiovascular: Cardiovascular: Reports no additional cardiovascular complaints, Denies chest pain, Denies leg edema and Denies dyspnea Respiratory: Respiratory: Reports no additional respiratory complaints, Denies cough and Denies dyspnea Gastrointestinal: Gastrointestinal: Reports no additional gastrointestinal complaints, Denies abdominal pain, Denies diarrhea, Denies nausea and Denies vomiting Genitourinary: Genitourinary: Reports no additional female genitourinary complaints and Denies urinary incontinence Musculoskeletal: Musculoskeletal: Reports no additional musculoskeletal complaints, Denies back pain, Reports arthralgias, Denies joint swelling, Reports limited range of motion, Denies neck pain, Denies numbness and Denies tingling Integumentary/Breasts: Skin/Breast: Reports system reviewed and no additional complaints, except as docu and Denies rash Neurologic: Reports system reviewed and no additional complaints, except as documented, Denies Abnormal speech present, Denies dizziness, Denies headache(s), Denies numbness, Denies tingling and Denies weakness PMFSH Past Medical History Attestation statement: The following information was validated with the patient. Source: old records reviewed and nursing notes reviewed Medical History Benign essential hypertension Cervical spondylosis Closed fracture of left ankle COVID-19 vaccine series completed Dermatitis Elevated LFTs GERD without esophagitis Hematuria HTN (hypertension) Insomnia Kidney stones Obesity (BMI 30-39.9) Post-operative nausea and vomiting Pure hypercholesterolemia Vitamin D deficiency White coat syndrome with hypertension Surgical History History of fracture of left ankle History of lithotripsy Hx of colonoscopy Family History Family History Father Heart attack Mother Breast cancer Sister Breast cancer Diabetes Social History Social History Housing: Apartment Are you a primary career development manager to a significant other at home: No Do you presently have visiting nurse or other home services: No Alcohol intake: never Patient Tobacco Use Status: Never used Tobacco Second Hand Smoke Exposure: No Use of substances other than those prescribed or required for medical reasons: No Advance Directives: No Advance Directives Information Provided: No service: No Current occupational status: employed Current occupation: home care Cognitive needs: No Hearing needs: No Vision needs: No Physical Exam Vital Signs: Vital Signs: Last Vital Signs Temp 97.6 F 02/25/22 11:42 Pulse 92 02/25/22 11:42 Resp 18 02/25/22 11:42 BP 167/88 H 02/25/22 11:42 Pulse Ox 98 02/25/22 11:42 O2 Del Method 02/25/22 11:42 BMI result Body Mass Index 29.6 Const: General: cooperative, healthy appearing, comfortable and no acute distress Orientation/consciousness: patient oriented x3 Limitations: no limitations HEENT: Head: Yes normal to inspection Ears: hearing grossly normal bilaterally General nose exam: Normal external nose present Face and sinus: Yes normal facial exam Mouth: Normal oral and palatal mucosa present Throat: Yes posterior oropharynx normal Eyes: General: appearance normal, both eyes and all related structures Pupils: Equal, round and reactive pupils present Neck: Neck: Yes normal visual inspection Chest: Chest palpation & inspection: normal inspection of the chest Resp: Effort & Inspection: normal respiratory effort Auscultation: clear to auscultation bilaterally Cardio: Rate: regular rate Rhythm: regular rhythm Peripheral pulses: Peripheral pulses 2+ throughout GI: Inspection: Yes normal to inspection Palpation (GI): Soft to palpation and nontender Auscultation: normal bowel sounds Back/Spine/Pelvis: Thoracic/Lumbar Spine: thoracic and lumbar spine normal to inspection Skin: General skin exam: no rashes or lesions noted Neuro: General: patient oriented x3, no focal motor deficits and normal sensation to monofilament Cranial nerves: Yes Equal, round and reactive pupils present Cognition (Neuro): normal cognition Speech: No Abnormal speech present Gait exam (Neuro): Normal gait present Motor exam (neuro): 5/5 motor strength present throughout Extrem: Other: Tenderness over the lateral right proximal radius with limited extension due to pain. Neurovascularly intact distally. Normal radial and ulnar pulses. No obvious deformity noted General: Yes normal to inspection Course Course Course Narrative: X-ray show There is a subtle, nondisplaced fracture of the anterolateral radial neck. Otherwise, bones are intact. The anterior and posterior fat pads are displaced from an elbow joint effusion. The alignment is maintained at the radiocapitellar and ulnohumeral joints.? -patient placed in a sling. Recommended rice at home. Recommended continuing NSAID and tramadol which she has at home only as needed. Recommend follow-up with Orthopedics. Reviewed worrisome signs and symptoms of when to return to the emergency department. Comfortable discharge home. MDM - Extremity (Nontraumatic) MDM Narrative Medical decision making narrative: 56-year-old female with right elbow pain after fall on an outstretched hand yesterday that was mechanical in nature. Will obtain x-rays due to tenderness over the proximal radius and limited extension due to pain Medical Records Attestation: I reviewed the patient's medical records. Lab Data Attestation: I reviewed the patient's lab results. Imaging Data Elbow x-ray right: Attestation: I personally reviewed and interpreted this imaging study as follows: Radiologist's impression: EFREN: None? TECHNIQUE: Four views of the right elbow. XR/XR elbow RT min 3V FINDINGS AND IMPRESSION: There is a subtle, nondisplaced fracture of the anterolateral radial neck. Otherwise, bones are intact. The anterior and posterior fat pads are displaced from an elbow joint effusion. The alignment is maintained at the radiocapitellar and ulnohumeral joints.? ? Procedures Orthopedic Splinting/Casting Injury #1: Side: right Upper Extremity Injury Location: elbow Upper Extremity Immobilizer: sling/shoulder immobilizer Discharge Plan Discharge Clinical Impression: Closed fracture of radial head Patient Disposition: Home, Self-Care Instructions: Elbow Fracture (ED) Additional Instructions: Use the sling for comfort Apply ice 20 minutes on 20 minutes off Limit use of the extremity Take Motrin 3 times daily. Take tramadol only as needed Call Orthopedics for follow-up Prescriptions: No Action polyethylene glycol 3350 17 gram/dose powder 17 g PO DAILY 30 Days Qty: 510 5RF trazodone 50 mg tablet 50 mg PO BEDTIME Qty: 30 1RF ibuprofen 600 mg tablet 600 mg PO BID PRN (Reason: pain) 30 Days Qty: 90 3RF Rx Instructions: Take with food loratadine 10 mg tablet 10 mg PO DAILY Qty: 30 2RF lisinopril 30 mg tablet 30 mg PO DAILY Qty: 90 0RF atorvastatin 10 mg tablet 10 mg PO DAILY Qty: 90 1RF lorazepam 0.5 mg tablet See Rx Instructions .ROUTE .COMPLEX PRN (Reason: anxiety) Qty: 10 0RF Rx Instructions: Take 1 tablet 30 minutes before boarding plane. May take a 2nd dose after 20 to 30 minutes if needed PRN; omeprazole 20 mg capsule,delayed release(DR/EC) 20 mg PO QAM 30 Days Qty: 30 5RF tramadol 50 mg tablet 50 mg PO TID PRN (Reason: pain) 30 Days Qty: 90 0RF ergocalciferol (vitamin D2) 1,250 mcg (50,000 unit) capsule 1,250 mcg PO QWEEK Qty: 4 11RF miconazole nitrate 2 % powder 1 appl topical BID Qty: 85 1RF docusate sodium [Colace] 100 mg capsule 200 mg PO BEDTIME Qty: 60 5RF Citrucel 500 mg tablet 500 mg PO BID Qty: 60 5RF Referrals: [facility] [place] Orthopedic Surgeons [Provider Group] Stand Alone Forms: Work/School Release Interventions: ED Discharge Assessment Last Done: 02/25/22 13:07
== END 2022-02-25 13:15 | disposition home or self-care (01) ==
PROVIDERS: Emergency Provider Student in an Organized Health Care Education/Training Program; PCP Internal Medicine
DX: S52.134A Nondisplaced fracture of neck of right radius, initial encounter for closed fracture (principal); X50.9XXA Other and unspecified overexertion or strenuous movements or postures, initial encounter; Y93.89 Activity, other specified; Y92.018 Other place in single-family (private) house as the place of occurrence of the external cause; Y99.9 Unspecified external cause status
CPT/HCPCS: 73080; 99283

== ENCOUNTER → 2022-03-01 14:27 | Outpatient (BNVA) | payer OTHER, SELFPAY | PROVIDERS: PCP Internal Medicine; Visit Provider Physician Assistant | DX: S52.121A Displaced fracture of head of right radius, initial encounter for closed fracture (principal) | CPT/HCPCS: 99202 ==

== ENCOUNTER 2022-03-15 07:28 | Outpatient (REF) | payer OTHER, SELFPAY ==
--- NOTE | ~2022-03-15 | XR_ITS ---
EXAMINATION: XR ELBOW, RIGHT CLINICAL INFORMATION: Pain. COMPARISON: 02/25/22 TECHNIQUE: Three views of the right elbow. FINDINGS: There is a nearly nondisplaced intra-articular radial head fracture. This involves approximately 50% of the articular surface. A component likely extends to the proximal metaphysis. The distal humerus appears intact. The proximal ulna appears intact. There may be a lipohemarthrosis. XR/XR elbow RT min 3V IMPRESSION: Intra-articular radial head fracture. Joint fluid.
== END 2022-03-15 07:29 | disposition home or self-care (01) ==
LOC: HO.HOSX 07:28
PROVIDERS: Visit Provider Physician Assistant
DX: M25.521 Pain in right elbow (principal); M25.571 Pain in right ankle and joints of right foot
CPT/HCPCS: 73080

== ENCOUNTER 2022-04-06 10:22 | Outpatient (REF) | payer OTHER, SELFPAY ==
--- NOTE | ~2022-04-06 | MM_ITS ---
EXAMINATION: MM SCREENING DIGITAL BREAST TOMOSYNTHESIS, BILATERAL CLINICAL INFORMATION: Screening. Asymptomatic. The lifetime risk of breast cancer based on the Tyrer-Cuzick Model is 17%. COMPARISON: Mammography: 02/28/2021, 02/24/2020, 02/18/2019 TECHNIQUE: Digital breast tomosynthesis is performed in both the craniocaudal and mediolateral oblique views along with computer-aided detection (CAD). Synthesized 2D images are generated from the tomosynthesis. FINDINGS: There are scattered areas of fibroglandular density (ACR BI-RADS breast composition Category b). There are no significant masses, abnormal calcifications, or other abnormalities. No architectural abnormality or significant changes. The axilla and skin contours are unremarkable. MM/MM tomosynthesis screening BI IMPRESSION: No significant changes from prior exams. ASSESSMENT: BI-RADS 1: Negative RECOMMENDATION: Routine annual mammography screening. This patient's information was entered into a reminder system with a target due date for their next mammogram.
== END 2022-04-06 10:23 | disposition home or self-care (01) ==
LOC: HO.MAMMO 10:22
PROVIDERS: PCP Internal Medicine; Visit Provider Internal Medicine
DX: Z12.31 Encounter for screening mammogram for malignant neoplasm of breast (principal)
CPT/HCPCS: 77063; 77067

== ENCOUNTER 2022-04-26 12:41 | Outpatient (REF) | payer OTHER, SELFPAY ==
--- NOTE | ~2022-04-26 | XR_ITS ---
EXAMINATION: XR ELBOW, RIGHT CLINICAL INFORMATION: Right elbow pain. COMPARISON: March 15, 2022. TECHNIQUE: AP, lateral, and oblique views of the right elbow. XR/XR elbow RT min 3V FINDINGS/IMPRESSION: Examination again demonstrates a depressed fracture involving the radial aspect of the humeral head. The fracture plane extends to the joint space. The fracture fragments may be slightly more displaced compared with most recent prior study from March 15, 2022, although comparison is somewhat difficult due to differences in obliquity. There may be mild callus formation. Fluid remains within the elbow joint capsule, with elevation of the anterior fat-pad and visualization of the posterior fat pad. No other fracture or dislocation is identified.
== END 2022-04-26 12:42 | disposition home or self-care (01) ==
LOC: HO.HOSX 12:41
PROVIDERS: Visit Provider Physician Assistant
DX: M25.521 Pain in right elbow (principal)
CPT/HCPCS: 73080

== ENCOUNTER 2022-06-02 11:30 | Outpatient (RCR) | payer OTHER, SELFPAY ==
--- NOTE | 2022-04-12 13:38 | MHC.OT.EP ---
[address] [phone] Occupational Therapy Plan of Care Date of Evaluation: 04/12/22 Diagnosis: Right radial head fx Assessment: Nichelle is a 57 yo right hand dominant female that presents about 6.5 weeks s/p fall w/ right radial head fx. She was initially placed in a sling, now removed and able to participate in light daily activities. On assessment, she has mild pain with decreased end range elbow ex/flex (30/125). She has good understanding of precautions w/ activity modification and avoiding heavy lifting and twisting of her arm. I expect she will do very well w/ progression of therapy program to return to full work duties and daily activities. Frequency and Duration: The patient will be seen 2x.wk for 4 weeks Short Term Goals: Ind w/ HEP Ind w/ use of heat/ice appropriately Elbow ext to 20 degrees Elbow flex to 135 degrees Mill Tender Second Operator Goals: Pt to demo lift and carry 15lb bimanually in simulation of ADL task Pt to complete hair care w/ ease Pt to report pain free w/ light use of right arm Right gross grasp 50lb Quickdash score 30 Elbow ext 10 degrees Elbow flex 145 degrees Treatment Plan: Therapeutic Exercise Therapeutic Activity Home Exercise Program Patient Education Edema Control ADL Training Ultrasound MHP Cold Packs Joint Mobilization Soft Tissue Mobilization Kinesiotaping Electronically Signed By: Aby Landeros OTR/L Please Sign and return to therapist. Thank you once again for your referral.
--- NOTE | 2022-04-24 11:55 | MHC.OT.OP ---
[address] [phone] F: [phone] Occupational Therapy Progress Note Diagnosis: Right radial head fx Date of Surgery: Date of Evaluation: 04/12/22 Treatments to Date: 4 Subjective: Yesterday was pretty sore, it's stiff when I wake up Pain Score: 4 Pain Location: Right elbow Objective Measures: Elbow 30/128 -> 14/140 after heat and ROM Status: Progressing Assessment: Nichelle is about 8 weeks s/p radial head fx, good follow through w/ HEP and improving elbow ext from initial visit, decreased carry over in range from last week but good gains in treatment today. Pt very motivated, still w/ moderate pain, using heat and cold for comfort. Still doing light duty at work and beginning to progress activity. Short Term Goals: Ind w/ HEP Ind w/ use of heat/ice appropriately Elbow ext to 20 degrees Elbow flex to 135 degrees [facility] Goals: Pt to demo lift and carry 15lb bimanually in simulation of ADL task Pt to complete hair care w/ ease Pt to report pain free w/ light use of right arm Right gross grasp 50lb Quickdash score 30 Elbow ext 10 degrees Elbow flex 145 degrees Frequency and Duration: The patient will be seen 2x/wk for 4 weeks Treatment Plan: Therapeutic Exercise Therapeutic Activity Home Exercise Program Patient Education Edema Control ADL Training MHP Cold Packs Joint Mobilization Soft Tissue Mobilization Kinesiotaping Electronically Signed By: Aby Landeros OTR/L CHT Reviewed/agree with student documentation: Therapist:
--- NOTE | 2022-06-06 11:54 | MHC.OT.DC ---
[address] [phone] F: [phone] Occupational Therapy Discharge Note Provider: Kamron Singer PA-C Diagnosis: Right radial head fx Date of Evaluation: 04/12/22 Date of Discharge: 06/02/22 Treatments to Date: 13 Discharge Status: Achieved Goals Improved Function Independent with HEP Discharge Summary: Nichelle is about 13 weeks s/p radial head fx and doing well. She has good follow through w/ HEP, continues to improvements with pain, range and strength. She has cont'd to progress w/ participation in daily activities and increasing tasks at work. At this time, hand strength is WFL and elbow range is about 15/140 w/ no significant functional limitations. Electronically Signed By: Aby Landeros OTR/Latrell CHT Please Sign and return to therapist, thank you for your referral.
== END 2022-06-06 11:54 | disposition home or self-care (01) ==
LOC: HO.OT 11:30
PROVIDERS: PCP Internal Medicine; Visit Provider Physician Assistant
DX: S52.121A Displaced fracture of head of right radius, initial encounter for closed fracture (principal)
CPT/HCPCS: 97110; 97140; 97165

== ENCOUNTER 2022-06-16 08:07 | Outpatient (REF) | payer OTHER, SELFPAY ==
[2022-06-16 08:24] LABS: MANUAL DIFF FLAG NO
[2022-06-16 08:59] LABS: Urine Cytology See Pathology rpt
[2022-06-16 09:09] LABS: Basophils Percent Auto 0.6 % (0-2); Eosinophils Absolute Auto 0.2 X10*3/uL (0.0-0.4); Eosinophils Percent Auto 3.5 % (0-4); Hemoglobin 13.2 g/dl (12.0-16.0); Imm Gran Abs Auto 0.01 X10*3/uL (0.00-0.03); Imm Gran Pct Auto 0.2 % (0.0-0.4); Lymphocytes Percent Auto 32.8 % (20-40); Mean Corpuscular HGB Conc 32.2 g/dl (31.0-35.0); Mean Corpuscular Volume 93.2 fL (80.0-98.0); Mean Platelet Volume 12.1 fL (9.4-12.3); Monocytes Absolute Auto 0.6 X10*3/uL (0.1-1.2); Monocytes Percent Auto 9.3 % (2-11); Neutrophils Absolute Auto 3.3 x10*3/uL (2.0-8.3); Neutrophils Percent Auto 53.6 % (45-73); Platelet Count 189 X10*3/uL (160-400); Red Cell Distribution Width 13.6 % (11.0-16.0); White Blood Count 6.2 X10*3/uL (4.8-10.8)
[2022-06-16 09:35] LABS: Alanine Aminotransferase 22 U/L (0-31); Albumin Level 4.5 g/dL (3.5-5.0); Alkaline Phosphatase 65 U/L (39-117); Anion Gap 15 (12-20); Aspartate Amino Transferase 18 U/L (5-31); Bilirubin Total 0.7 mg/dL (0.0-1.0); Blood Urea Nitrogen 13 mg/dL (9-16); Calcium 9.5 mg/dL (8.4-10.2); Carbon Dioxide 28 mmol/L (22-29); Chloride 103 mmol/L (96-108); Cholesterol 189 mg/dL; Estimated Glomerular Filt Rate > 60; Glucose Fasting 95 mg/dL (60-99); HDL Cholesterol 56 mg/dL; LDL Cholesterol Calculated 94 mg/dl; Potassium 4.9 mmol/L (3.3-5.1); Sodium 141 mmol/L (135-145); Total Protein 7.4 g/dL (6.5-8.0); Triglycerides 196 mg/dL
[2022-06-16 10:02] LABS: TSH reflex Free T4 1.64 uIU/mL (0.32-4.0)
[2022-06-16 10:34] LABS: Appearance Urine Clear; Color Urine Yellow; Glucose Urine UA Negative (Negative); Leukocyte Esterase Urine Small (1+) (Negative); Nitrite Urine Negative (Negative); PH 7.5 (5.0-9.0); UMIC TRIGGER UACC YES; Urine Blood Negative (Negative); Urine Ketones Negative (Negative); Urine Protein Negative (Neg-Trace)
[2022-06-16 11:11] LABS: Bacteria Urine None Seen (None Seen); Hyaline Casts Urine 0-2 /LPF (0-2); RBC Urine 0-2 /HPF (0-2); Squamous Epithelial Cell Urine 0-2 /HPF (0-2); UACC Culture Trigger YES; WBC Urine 0-5 /HPF (0-5)
[2022-06-16 12:43] LABS: Vitamin D 25-OH Total 32.7 ng/mL (>30)
== END 2022-06-16 08:08 | disposition home or self-care (01) ==
LOC: HO.LAB 08:07
PROVIDERS: Visit Provider Internal Medicine
DX: E78.00 Pure hypercholesterolemia, unspecified (principal); I10 Essential (primary) hypertension; R31.1 Benign essential microscopic hematuria; E55.9 Vitamin D deficiency, unspecified
CPT/HCPCS: 36415; 80053; 80061; 81001; 81003; 82306; 84443; 85025; 87086; 88112

== ENCOUNTER 2022-06-21 11:58 | Outpatient (REF) | payer OTHER, SELFPAY ==
--- NOTE | ~2022-06-21 | XR_ITS ---
EXAMINATION: XR ELBOW, RIGHT CLINICAL INFORMATION: Fracture radial head. Pain. COMPARISON: Radiographs right elbow 04/26/2022, 03/15/2022. TECHNIQUE: AP, lateral, and oblique views of the right elbow. FINDINGS: There is an intra-articular fracture radial head with depression of the radial side fragment by 1-2 mm. No intra-articular loose bodies demonstrated. No destructive process or dislocation. Fracture line is still visible. Small inter capsular effusion again seen. XR/XR elbow RT min 3V IMPRESSION: Intra-articular fracture radial head with 1-2 mm depression radial side fragment.
== END 2022-06-21 11:59 | disposition home or self-care (01) ==
LOC: HO.HOSX 11:58
PROVIDERS: Visit Provider Physician Assistant
DX: S52.121A Displaced fracture of head of right radius, initial encounter for closed fracture (principal)
CPT/HCPCS: 73080; 99212

== ENCOUNTER 2022-06-28 13:46 | Outpatient (REF) | payer OTHER, SELFPAY ==
--- NOTE | ~2022-06-28 | MM_ITS ---
EXAMINATION: BONE DENSITOMETRY CLINICAL INDICATION: Asymptomatic menopausal state. COMPARISON: None (current study represents initial baseline exam). TECHNIQUE: Using a [employer] DXA System (software version: 13.1) manufactured by [employer], dual-energy x-ray absorptiometry was performed of the lumbar spine and left hip. The images are of good technical quality. Summary results are attached. FINDINGS: AP SPINE L1-L4: BMD 1.086 g/cm2, Z-score -0.2, T-score -0.8, normal. LEFT FEMUR, NECK: BMD 0.988 g/cm2, Z-score 0.5, T-score -0.4, normal. LEFT FEMUR, TOTAL: BMD 0.980 g/cm2, Z-score 0.3, T-score -0.2, normal. IDENTIFIED RISK FACTORS: Menopause, history of fracture (adult). HISTORY OF FRACTURE: Ankle. MEDICATIONS: Vitamin D. MM/XR DEXA axial skeleton IMPRESSION: 1. DIAGNOSIS: Normal bone density based on the lowest T-score value of -0.8 in the lumbar spine applying World Health Organization criteria. 2. 10-YEAR FRACTURE RISK PREDICTION, FRAX: According to the guidelines, FRAX calculation should only be performed on patients in the osteopenia bone density category. Therefore, FRAX was not performed on this patient. 3. Treatment Recommendations: NOF guidelines recommend consideration for treatment in postmenopausal women and men age 50 and older presenting with the following: -A hip or vertebral (clinical or morphometric) fracture. -T-score less than or equal to -2.5 at the femoral neck or spine after appropriate evaluation to exclude secondary causes. -Low bone mass at the hip or spine and a 10-year fracture probability by FRAX of greater than or equal to 3% for hip fracture or greater than or equal to 20% for major osteoporotic fracture based on the [place] adapted WHO algorithm. 4. Other Recommendations: All treatment decisions require clinical judgment and consideration of individual patient factors, including patient preferences, comorbidities, previous drug use, risk factors not captured in the FRAX model (e.g. frailty, falls, vitamin D deficiency, increased bone turnover, interval significant decline in bone density) and possible under or overestimation of fracture risk by FRAX. FUTURE SCAN RECOMMENDATION: People with diagnosed cases of osteoporosis or at high risk for fracture should have regular bone mineral density tests. For patients eligible for Medicare, routine testing is allowed once every 2 years. The testing frequency can be increased to one year for patients who have rapidly progressing disease, those who are receiving or discontinuing medical therapy to restore bone mass, or have additional risk factors.
== END 2022-06-28 13:47 | disposition home or self-care (01) ==
LOC: HO.MAMMO 13:46
PROVIDERS: PCP Internal Medicine; Visit Provider Internal Medicine
DX: Z13.820 Encounter for screening for osteoporosis (principal); Z78.0 Asymptomatic menopausal state
CPT/HCPCS: 77080

== ENCOUNTER 2022-09-15 08:02 | Outpatient (REF) | payer OTHER, SELFPAY ==
[2022-09-15 09:13] LABS: Alanine Aminotransferase 18 U/L (0-31); Albumin Level 4.4 g/dL (3.5-5.0); Alkaline Phosphatase 65 U/L (39-117); Anion Gap 14 (12-20); Aspartate Amino Transferase 16 U/L (5-31); Bilirubin Total 0.9 mg/dL (0.0-1.0); Blood Urea Nitrogen 15 mg/dL (9-16); Calcium 9.4 mg/dL (8.4-10.2); Carbon Dioxide 28 mmol/L (22-29); Chloride 106 mmol/L (96-108); Cholesterol 203 mg/dL; Estimated Glomerular Filt Rate > 60; Glucose Fasting 91 mg/dL (60-99); HDL Cholesterol 53 mg/dL; LDL Cholesterol Calculated 113 mg/dl; Potassium 4.6 mmol/L (3.3-5.1); Sodium 143 mmol/L (135-145); Total Protein 6.9 g/dL (6.5-8.0); Triglycerides 188 mg/dL
[2022-09-15 09:13] LABS: Appearance Urine Clear; Color Urine Yellow; Glucose Urine UA Negative (Negative); Leukocyte Esterase Urine Negative (Negative); Nitrite Urine Negative (Negative); PH 6.5 (5.0-9.0); Specific Gravity - Urine 1.015 (1.005-1.025); Urine Blood Negative (Negative); Urine Ketones Negative (Negative); Urine Protein Negative (Neg-Trace)
[2022-09-15 09:31] LABS: TSH reflex Free T4 2.46 uIU/mL (0.32-4.0); Vitamin D 25-OH Total 29.4 ng/mL (>30)
== END 2022-09-15 08:03 | disposition home or self-care (01) ==
LOC: HO.LAB 08:02
PROVIDERS: PCP Internal Medicine; Visit Provider Internal Medicine
DX: E55.9 Vitamin D deficiency, unspecified (principal); E78.00 Pure hypercholesterolemia, unspecified; R30.0 Dysuria
CPT/HCPCS: 36415; 80053; 80061; 81003; 82306; 84443

== ENCOUNTER 2022-12-15 07:59 | Outpatient (REF) | payer OTHER, SELFPAY ==
[2022-12-15 08:15] LABS: MANUAL DIFF FLAG NO
[2022-12-15 08:48] LABS: Basophils Percent Auto 0.7 % (0-2); Eosinophils Absolute Auto 0.2 X10*3/uL (0.0-0.4); Hematocrit 39.3 % (37.0-47.0); Hemoglobin 12.6 g/dl (12.0-16.0); Imm Gran Abs Auto 0.02 X10*3/uL (0.00-0.03); Imm Gran Pct Auto 0.3 % (0.0-0.4); Lymphocytes Absolute Auto 2.3 X10*3/uL (1.2-4.9); Lymphocytes Percent Auto 37.4 % (20-40); Mean Corpuscular HGB Conc 32.1 g/dl (31.0-35.0); Mean Corpuscular Volume 93.6 fL (80.0-98.0); Mean Platelet Volume 12.1 fL (9.4-12.3); Monocytes Absolute Auto 0.5 X10*3/uL (0.1-1.2); Monocytes Percent Auto 8.1 % (2-11); Neutrophils Percent Auto 49.5 % (45-73); Platelet Count 172 X10*3/uL (160-400); Red Cell Distribution Width 13.6 % (11.0-16.0)
[2022-12-15 09:18] LABS: Alanine Aminotransferase 16 U/L (0-31); Albumin Level 4.3 g/dL (3.5-5.0); Alkaline Phosphatase 61 U/L (39-117); Anion Gap 12 (12-20); Aspartate Amino Transferase 21 U/L (5-31); Bilirubin Total 0.7 mg/dL (0.0-1.0); Blood Urea Nitrogen 15 mg/dL (9-16); Carbon Dioxide 25 mmol/L (22-29); Chloride 108 mmol/L (96-108); Cholesterol 180 mg/dL; Estimated Glomerular Filt Rate > 60; Glucose Fasting 90 mg/dL (60-99); HDL Cholesterol 53 mg/dL; LDL Cholesterol Calculated 98 mg/dl; Potassium 4.7 mmol/L (3.3-5.1); Sodium 140 mmol/L (135-145); Triglycerides 148 mg/dL
[2022-12-15 09:28] LABS: Appearance Urine Clear; Color Urine Yellow; Glucose Urine UA Negative (Negative); Leukocyte Esterase Urine Moderate (2+) (Negative); Nitrite Urine Negative (Negative); Specific Gravity - Urine 1.015 (1.005-1.025); UMIC TRIGGER UACC YES; Urine Blood Trace (Negative); Urine Ketones Negative (Negative); Urine Protein Negative (Neg-Trace)
[2022-12-15 09:32] LABS: Bacteria Urine 1+ (None Seen); Hyaline Casts Urine 0-2 /LPF (0-2); RBC Urine 0-2 /HPF (0-2); UACC Culture Trigger YES; WBC Urine 21-50 /HPF (0-5)
[2022-12-15 09:35] LABS: TSH reflex Free T4 1.93 uIU/mL (0.32-4.0); Vitamin D 25-OH Total 30.6 ng/mL (>30)
== END 2022-12-15 08:00 | disposition home or self-care (01) ==
LOC: HO.LAB 07:59
PROVIDERS: PCP Internal Medicine; Visit Provider Internal Medicine
DX: I10 Essential (primary) hypertension (principal); E78.00 Pure hypercholesterolemia, unspecified; E55.9 Vitamin D deficiency, unspecified
CPT/HCPCS: 36415; 80053; 80061; 81001; 82306; 84443; 85025; 87086; 87088; 87186

== ENCOUNTER 2023-03-02 10:17 | Outpatient (REF) | payer OTHER, SELFPAY ==
--- NOTE | ~2023-03-02 | XR_ITS ---
EXAMINATION: XR SHOULDER, RIGHT CLINICAL INFORMATION: Pain. COMPARISON: None available. TECHNIQUE: AP external rotation, Grashey, scapular Y, and axillary views of the right shoulder. FINDINGS: The bones and soft tissues are normal. No fracture. Glenohumeral and acromioclavicular alignment is anatomic with normal joint space. No abnormal soft tissue calcifications. XR/XR shoulder RT min 2V IMPRESSION: Normal right shoulder.
== END 2023-03-02 10:18 | disposition home or self-care (01) ==
LOC: HO.XRAY 10:17
PROVIDERS: PCP Internal Medicine; Visit Provider Internal Medicine
DX: M25.511 Pain in right shoulder (principal); M25.811 Other specified joint disorders, right shoulder
CPT/HCPCS: 73030

== ENCOUNTER 2023-03-26 08:59 | Outpatient (REF) | payer OTHER, SELFPAY ==
[2023-03-26 09:19] LABS: MANUAL DIFF FLAG NO
[2023-03-26 09:30] LABS: Basophils Absolute Auto 0.1 X10*3/uL (0.0-0.2); Basophils Percent Auto 0.9 % (0-2); Eosinophils Absolute Auto 0.3 X10*3/uL (0.0-0.4); Eosinophils Percent Auto 4.3 % (0-4); Hematocrit 39.7 % (37.0-47.0); Hemoglobin 12.5 g/dl (12.0-16.0); Imm Gran Abs Auto 0.01 X10*3/uL (0.00-0.03); Imm Gran Pct Auto 0.2 % (0.0-0.4); Lymphocytes Absolute Auto 2.2 X10*3/uL (1.2-4.9); Lymphocytes Percent Auto 36.9 % (20-40); Mean Corpuscular HGB Conc 31.5 g/dl (31.0-35.0); Mean Corpuscular Hemoglobin 29.5 pg (27.0-33.0); Mean Corpuscular Volume 93.6 fL (80.0-98.0); Mean Platelet Volume 11.7 fL (9.4-12.3); Monocytes Absolute Auto 0.5 X10*3/uL (0.1-1.2); Monocytes Percent Auto 9.3 % (2-11); Neutrophils Absolute Auto 2.8 x10*3/uL (2.0-8.3); Neutrophils Percent Auto 48.4 % (45-73); Platelet Count 197 X10*3/uL (160-400); Red Blood Count 4.24 X10*6/uL (4.20-5.50); Red Cell Distribution Width 13.4 % (11.0-16.0); White Blood Count 5.8 X10*3/uL (4.8-10.8)
[2023-03-26 09:57] LABS: Appearance Urine Clear; Color Urine Yellow; Glucose Urine UA Negative (Negative); Leukocyte Esterase Urine Negative (Negative); Nitrite Urine Negative (Negative); PH 6.5 (5.0-9.0); Specific Gravity - Urine 1.015 (1.005-1.025); Urine Blood Negative (Negative); Urine Ketones Negative (Negative); Urine Protein Negative (Neg-Trace)
[2023-03-26 10:13] LABS: Alanine Aminotransferase 20 U/L (0-31); Albumin Level 4.3 g/dL (3.5-5.0); Alkaline Phosphatase 52 U/L (39-117); Anion Gap 13 (12-20); Aspartate Amino Transferase 18 U/L (5-31); Bilirubin Total 0.7 mg/dL (0.0-1.0); Blood Urea Nitrogen 13 mg/dL (9-16); Calcium 9.7 mg/dL (8.4-10.2); Carbon Dioxide 29 mmol/L (22-29); Chloride 107 mmol/L (96-108); Cholesterol 194 mg/dL (<200); Estimated Glomerular Filt Rate > 60; Glucose Fasting 96 mg/dL (60-99); HDL Cholesterol 57 mg/dL (>40); LDL Cholesterol Calculated 111 mg/dL (<100); Potassium 4.5 mmol/L (3.3-5.1); Sodium 144 mmol/L (135-145); Total Protein 7.3 g/dL (6.5-8.0); Triglycerides 134 mg/dL (<150)
[2023-03-26 10:32] LABS: TSH reflex Free T4 1.66 uIU/mL (0.32-4.0); Vitamin D 25-OH Total 32.9 ng/mL (>30)
== END 2023-03-26 09:00 | disposition home or self-care (01) ==
LOC: HO.LAB 08:59
PROVIDERS: PCP Internal Medicine; Visit Provider Internal Medicine
DX: E78.00 Pure hypercholesterolemia, unspecified (principal); R30.0 Dysuria; E55.9 Vitamin D deficiency, unspecified; I10 Essential (primary) hypertension
CPT/HCPCS: 36415; 80053; 80061; 81003; 82306; 84443; 85025

== ENCOUNTER 2023-03-29 11:44 | Outpatient (AMB) | payer OTHER, SELFPAY ==
[2023-03-29 11:47] VITALS: BP 142/80; PULSE 89; O2SAT 97; BMI 29.5
--- NOTE | 2023-03-29 11:47 | MHC.PC.OV ---
Vital Signs 03/29/23 11:47 03/29/23 12:37 Height 5 ft 2 in Weight 161 lb 6 oz BMI 29.5 BP 142/80 H 130/82 Blood Pressure Location Lt brachial Lt brachial Position Sitting Sitting Pulse 89 Pulse Source Pulse Oximeter Pulse Oximetry (%) 97 Oxygen Delivery Method Room Air Intake Visit Reasons: 3 month f/u Customer Manager Required: No Accompanied by: Self / Same As Patient Allergies naproxen Allergy (Verified 03/29/23 13:40) Vomiting Medication List - Last Reconciled 03/29/23 by Ruddy Lunsford MD atorvastatin 10 mg PO DAILY 90 days docusate sodium (Colace) 200 mg (2 x 100 mg) PO BEDTIME doxycycline monohydrate 100 mg PO BID 7 days ergocalciferol (vitamin D2) 1,250 mcg PO QWEEK ibuprofen 600 mg PO BID PRN 30 days lisinopril 30 mg PO DAILY loratadine 10 mg PO DAILY 90 days methylcellulose (laxative) (Citrucel) 500 mg PO BID mometasone 0.1% 1 appl topical DAILY PRN 15 days omeprazole 20 mg PO QAM polyethylene glycol 3350 17 grams PO DAILY 30 days tramadol 50 mg PO TID PRN 30 days Tobacco use date assessed: 03/29/23 Dental Screening Dental Screen Date: 03/29/23 Did you have a dental visit in the last 12 months?: Yes Did you have a dental problem in the last 6 months where you did not have access to dental care?: No Was dental information given to patient?: Patient has dentist HPI 3 month f/u HPI Details Patient comes in today for her follow up visit States that she's had a painful raised skin lesion over the posterior aspect of her right thigh (just below the buttocks area) for the past 3 weeks Notes that the lesion is not draining but it has gotten bigger and more painful lately States that she feels okay otherwise She denies any fever, headaches or dizziness Denies any chest pains, no SOB No nausea/vomiting, no abdominal pain No change in bowel habits noted Had her follow up labs done a few days ago - to discuss her results [facility] Medical History (Updated 03/29/23 @ 14:04 by Ruddy Lunsford MD) Allergic rhinitis Benign essential hypertension Cervical spondylosis Closed fracture of left ankle COVID-19 vaccine series completed Dermatitis Elevated LFTs Facet arthritis of lumbar region GERD without esophagitis Hematuria HTN (hypertension) Insomnia Kidney stones Obesity (BMI 30-39.9) Overweight (BMI 25.0-29.9) Post-operative nausea and vomiting Pure hypercholesterolemia Vitamin D deficiency White coat syndrome with hypertension Surgical History History of fracture of left ankle History of lithotripsy Hx of colonoscopy Family History Father Heart attack Mother Breast cancer Sister Breast cancer Diabetes Social History Housing: Apartment Are you a primary memory care director to a significant other at home: No Do you presently have visiting nurse or other home services: No Alcohol intake: never Patient Tobacco Use Status: Never used Tobacco e-Cigarette/Vaping Use: Never Used Second Hand Smoke Exposure: No service: No Current occupational status: employed Current occupation: home care Cognitive needs: No Hearing needs: No Vision needs: No Female Reproductive History Menstrual Age of Menarche: 15 Questionnaire PHQ-9 Over the last 2 weeks, how often have you been bothered by any of the following problems? 1. Little interest or pleasure in doing things: not at all 2. Feeling down, depressed, or hopeless: not at all 3. Trouble falling or staying asleep, or sleeping too much: not at all 4. Feeling tired or having little energy: not at all 5. Poor appetite or overeating: not at all 6. Feeling bad about yourself - or that you are a failure or have let yourself or your family down: not at all 7. Trouble concentrating on things, such as reading the newspaper or watching television: not at all 8. Moving or speaking so slowly that other people could have noticed. Or the opposite - being so fidgety or restless that you have been moving around a lot more than usual: not at all 9. Thoughts that you would be better off or of hurting yourself in some way: not at all Total score: 0 Depression Screening Interpretation: Negative 72087 - PHQ-9 Billing: Yes Source: Developed by Drs. Danielito Chaudhari, Tung Benitez and colleagues, with an educational beck from [employer]. Thrive Questionnaire Date Thrive assessed: 03/29/23 I am a: Patient What is your living situation today?: I have a steady place to live Within the past 12 months, did the food you bought not last and you didn't have the money to get more?: Never true Within the past 12 months, did you worry whether your food would run out before you got money to buy more?: Never true Do you have trouble paying for medicines?: No Do you have trouble getting transportation to medical appointments?: No Do you have trouble paying your heating and electricity bill?: No Do you have trouble taking care of your child, family member or friend?: No Do you have trouble with day-to-day activities such as bathing, preparing meals, shopping, managing finances, etc.?: No Are you currently unemployed and looking for a job?: No Are you interested in more education?: No Please select the resources that you would like help with: None Currently or been in a relationship where the following occur: no concerns reported AUDIT C Alcohol Use Questionnaire (AUDIT-C) 1. How often do you have a drink containing alcohol?: Never 3. How often do you have six or more drinks on one occasion?: Never Total Score: 0 Score Reviewed/Action Taken: Yes KRISTYN-7 AMB Questionnaire KRISTYN-7 Date KRISTYN - 7 assessed: 03/29/23 Feeling nervous, anxious, or on edge: 0 = Not at all Not being able to stop or control worryin = Not at all Worrying too much about different things: 0 = Not at all Trouble relaxin = Not at all Being so restless that it is hard to sit still: 0 = Not at all Becoming easily annoyed or irritable: 0 = Not at all Feeling afraid as if something awful might happen: 0 = Not at all Total KRISTYN-7 score (0-4 normal; 5-9 mild; 10-14 moderate; 15-21 severe): 0 Source: Developed by Drs. Danielito Chaudhari, Tung Benitez and colleagues, with an educational beck from [employer]. Review of Systems Const Denies fatigue, Denies fever(s) and Denies headache(s) ENT Denies dysphagia, Denies dizziness, Denies otalgia, Denies headache(s), Reports neck pain (on and off), Denies odynophagia and Denies sore throat Card Denies chest pain, Denies rapid heart rate, Denies irregular heart rhythm, Denies palpitations and Denies dyspnea Resp Denies chest congestion, Denies cough, Denies dyspnea and Denies wheezing GI Denies abdominal pain, Denies constipation, Denies dysphagia, Denies heartburn, Denies diarrhea, Denies nausea, Denies odynophagia and Denies vomiting Denies urinary frequency, Denies dysuria and Denies urinary urgency Musc Reports back pain (on and off, over the lower back), Reports arthralgias (right shoulder; tends to click often lately - see HPI), Denies joint swelling, Denies muscle weakness and Reports neck pain (on and off) Skin/Breast Details: (+) painful small boil/abscess on the posterior aspect of the right thigh proximally, a few inches below the buttocks area - lesion is draining some purulent material Neuro Denies dizziness, Denies headache(s) and Denies paresthesias Psych Denies anxiety and Denies depression Endo Denies fatigue and Denies palpitations Munir/Lymph Denies easy bruising Aller/Immun Denies wheezing Physical exam (Primary Care) Vital Signs: Last Vital Signs Pulse 89 03/29/23 11:47 BP 130/82 03/29/23 12:37 Pulse Ox 97 03/29/23 11:47 Oxygen Delivery Method Room Air 03/29/23 11:47 BMI result Body Mass Index 29.5 Tobacco/Smoking Status: Tobacco use Status Tobacco use date assessed 03/29/23 03/29/23 11:56 Patient Tobacco Use Status Never used Tobacco 03/29/23 11:56 e-Cigarette/Vaping Use Never Used 03/29/23 11:56 PHQ-9: PHQ-9 Score PHQ-9: Total score 0 03/29/23 12:34 Depression Screening Interpretation: Negative Thrive Assessment: Date of Thrive Assessment Date Thrive assessed 03/29/23 03/29/23 11:56 Currently or been in a relationship where the following occur: no concerns reported Const General: no acute distress and alert HENMT Ears: TM's normal bilaterally and EAC's normal Throat: Yes posterior oropharynx normal and Yes tonsils normal (no TP congestion) Neck Neck: Yes no lymphadenopathy and Yes supple Thyroid: Thyroid normal Resp Auscultation: clear to auscultation bilaterally, no rales and no wheezes Cardio Rate: regular rate Rhythm: regular rhythm Heart sounds: no murmurs GI Palpation (GI): Soft to palpation and nontender Auscultation: normal bowel sounds General: Yes no CVA tenderness Back/Spine/Pelvis Back: no CVA tenderness Cervical Spine: Cervical spine tenderness (mild) Thoracic/Lumbar Spine: lumbar spinal tenderness (more on the right side) Skin Other: (+) small but tender, erythematous abscess on the posterior aspect of the right thigh proximally, just a couple of inches below the right buttocks - there is some yellowish purulent discharge from the abscess noted Extrem General: Yes no clubbing, cyanosis or edema Right upper extremity: shoulder/upper arm ((+) prominent clicking sensation in the right shoulder) Details: tenderness (at times, mild) Location: of the A-C joint and normal ROM Results Reviewed Results Reviewed: Laboratory Tests 03/26/23 03/26/23 03/26/23 09:16 09:17 09:17 WBC 5.8 Hgb 12.5 Hct 39.7 Plt Count 197 Sodium 144 Potassium 4.5 Creatinine 0.84 Estimated GFR > 60 Fasting Glucose 96 Calcium 9.7 D AST 18 ALT 20 Triglycerides 134 Cholesterol 194 LDL Cholesterol, Calc 111 H HDL Cholesterol 57 25-OH Vitamin D Total 32.9 TSH 1.66 Ur Specific Snow 1.015 Urine Protein Negative Urine Glucose (UA) Negative Urine Blood Negative Assessment and Plan Assessment & Plan (1) Pure hypercholesterolemia: Code(s): E78.00 - Pure hypercholesterolemia, unspecified Plan: Results of her labs done a few days ago reviewed and discussed with patient - cautioned that her cholesterol levels have again increased slightly from previous Reinforced low cholesterol diet Continue Atorvastatin 10 mg QD Will recheck her labs and fasting lipids in 3 months for follow up (2) Benign essential hypertension: Code(s): I10 - Essential (primary) hypertension Plan: Reinforced low sodium diet - goal is systolic BP of at least 120 to 130 mm or less Continue Lisinopril 30 mg QD (3) Elevated LFTs: Code(s): R79.89 - Other specified abnormal findings of blood chemistry Plan: Resolved; her LFTs have remained normal on her recent labs - was most likely related to her weight and cholesterol level Will continue to monitor her LFTs regularly (4) Cervical spondylosis: Code(s): M47.812 - Spondylosis without myelopathy or radiculopathy, cervical region Plan: Continue Ibuprofen 600 mg TID with food PRN, Tizanidine 4 mg TID PRN and Tramadol 50 mg TID PRN (5) Facet arthritis of lumbar region: Code(s): M47.816 - Spondylosis without myelopathy or radiculopathy, lumbar region Plan: Mostly over the right lower back - pain/symptoms are due to lumbar spine DDD and facet arthritis Lumbar spine x-rays done back in 2012 at [facility] [place] normal but repeat lumbar spine x-rays done last year (2021) revealed (+) mild disc height loss at L5-S1 as well as mild L5-S1 facet arthropathy She was referred to physical therapy but because of her elbow injury, she was never able to start her PT Reinforced activity and weight-lifting restrictions States that she has Ibuprofen and Tramadol to take when needed for pain (6) Closed fracture of head of right radius with routine healing: Code(s): S52.121D - Displaced fracture of head of right radius, subsequent encounter for closed fracture with routine healing Qualifiers: Fracture alignment: nondisplaced Qualified Code(s): S52.124D - Nondisplaced fracture of head of right radius, subsequent encounter for closed fracture with routine healing Plan: States that her elbow symptoms/pain have improved and resolved at this time Fracture of her right radial head was non-displaced and patient did not require any surgical intervention S/P physical therapy with some improvement although pain still recurs at times, especially with increased activity Follow up with orthopedics as scheduled or as needed (7) Clicking right shoulder: Code(s): M25.811 - Other specified joint disorders, right shoulder Plan: X-rays of the right shoulder done a few months ago came out normal Is advised again that the clicking sensation in her shoulder is most likely due to the sanpping of her tendon out of and back into place and that if she starts experiencing increasing pain in the shoulder, will recommend she either gets physical therapy on her shoulder or see orthopedics for further evaluation and management Patient states that she will call for referral when needed (8) GERD without esophagitis: Code(s): K21.9 - Gastro-esophageal reflux disease without esophagitis Plan: Dietary restrictions reinforced Continue Famotidine 40 mg Q HS PRN and Omeprazole 20 mg QD (9) Vitamin D deficiency: Code(s): E55.9 - Vitamin D deficiency, unspecified Plan: Continue Vitamin D2 95490 units once a week Reassured that her BMD (index) done in June 2022 came back normal - will recheck in 3 years for follow up (10) Allergic rhinitis: Code(s): J30.9 - Allergic rhinitis, unspecified Qualifiers: Allergic rhinitis trigger: unspecified Allergic rhinitis seasonality: unspecified Qualified Code(s): J30.9 - Allergic rhinitis, unspecified Plan: Continue Loratadine 10 mg QD PRN If symptoms are not adequately controlled on oral antihistamine alone, can add Fluticasone nasal spray QD PRN (11) Carbuncle: Code(s): L02.93 - Carbuncle, unspecified Plan: Over the back of the right thigh Is advised that the lesion is now draining so she may not need to see surgery for I & D at this time Will start her on Doxycycline 100 mg BID x 7 days Patient is instructed to continue with daily wound care and to call if the abscess does not significantly improve by next week (12) Dermatitis: Code(s): L30.9 - Dermatitis, unspecified Plan: Continue Mometasone 0.1% cream QD PRN (13) Insomnia: Code(s): G47.00 - Insomnia, unspecified Qualifiers: Insomnia type: primary Qualified Code(s): F51.01 - Primary insomnia Plan: Sleep hygiene reinforced Continue Trazodone 50 mg 1/2 to 1 tablet Q HS PRN (14) Overweight (BMI 25.0-29.9): Code(s): E66.3 - Overweight Plan: Reinforced diet/exercise as tolerated/lose weight Plan Follow up in 3 months Orders: Orders Comprehensive [place]. Panel Fast 3 Months E78.00 - Pure hypercholesterolemia, unspecified Lipid Panel 3 Months E78.00 - Pure hypercholesterolemia, unspecified Complete Blood Count Auto Diff 3 Months I10 - Essential (primary) hypertension UA CC w/rflx Micro + Cult 3 Months R30.0 - Dysuria Vitamin D 25-OH Total 3 Months E55.9 - Vitamin D deficiency, unspecified Medications: New doxycycline monohydrate 100 mg PO BID 14 caps 0RF 7 days Discontinued sulfamethoxazole-trimethoprim 800-160 mg (Bactrim DS) Discontinued Reason: Patient Completed Course 1 tab PO BID 7 days 14 tabs 0RF Coding Level of Care Code Est Pt Level 4 (20200) Diagnoses Pure hypercholesterolemia E78.00 Benign essential hypertension I10 Elevated LFTs R79.89 Cervical spondylosis M47.812 Facet arthritis of lumbar region M47.816 Closed fracture of head of right radius with routine healing S52.124D Fracture alignment: nondisplaced Clicking right shoulder M25.811 GERD without esophagitis K21.9 Vitamin D deficiency E55.9 Allergic rhinitis J30.9 Allergic rhinitis trigger: unspecified Allergic rhinitis seasonality: unspecified Carbuncle L02.93 Dermatitis L30.9 Insomnia F51.01 Insomnia type: primary Overweight (BMI 25.0-29.9) E66.3
[2023-03-29 12:37] VITALS: BP 130/82
== END 2023-03-29 12:46 | disposition home or self-care (01) ==
PROVIDERS: PCP Internal Medicine; Visit Provider Internal Medicine
DX: E78.00 Pure hypercholesterolemia, unspecified (principal); I10 Essential (primary) hypertension; K21.9 Gastro-esophageal reflux disease without esophagitis; E55.9 Vitamin D deficiency, unspecified; M47.812 Spondylosis without myelopathy or radiculopathy, cervical region; M47.816 Spondylosis without myelopathy or radiculopathy, lumbar region; M25.811 Other specified joint disorders, right shoulder; J30.9 Allergic rhinitis, unspecified; L02.93 Carbuncle, unspecified; L30.9 Dermatitis, unspecified; F51.01 Primary insomnia; E66.3 Overweight
CPT/HCPCS: 99214

== ENCOUNTER 2023-04-12 09:55 | Outpatient (REF) | payer OTHER, SELFPAY | END 2023-04-12 09:56 | disposition home or self-care (01) | LOC: HO.MAMMO 09:55 | PROVIDERS: PCP Internal Medicine; Visit Provider Internal Medicine | DX: Z12.31 Encounter for screening mammogram for malignant neoplasm of breast (principal) | CPT/HCPCS: 77063; 77067 ==

== ENCOUNTER → 2023-04-12 10:15 | Outpatient (BNV) | payer OTHER, SELFPAY | PROVIDERS: PCP Internal Medicine; Visit Provider Radiology Diagnostic Radiology | DX: Z12.31 Encounter for screening mammogram for malignant neoplasm of breast (principal) | CPT/HCPCS: 77063; 77067 ==

== ENCOUNTER 2023-07-05 08:12 | Outpatient (REF) | payer OTHER, SELFPAY ==
[2023-07-05 08:33] LABS: MANUAL DIFF FLAG NO
[2023-07-05 09:10] LABS: Basophils Percent Auto 0.6 % (0-2); Eosinophils Absolute Auto 0.3 X10*3/uL (0.0-0.4); Eosinophils Percent Auto 3.8 % (0-4); Hematocrit 39.5 % (37.0-47.0); Hemoglobin 12.3 g/dl (12.0-16.0); Imm Gran Abs Auto 0.01 X10*3/uL (0.00-0.03); Imm Gran Pct Auto 0.1 % (0.0-0.4); Lymphocytes Absolute Auto 2.1 X10*3/uL (1.2-4.9); Lymphocytes Percent Auto 30.1 % (20-40); Mean Corpuscular HGB Conc 31.1 g/dl (31.0-35.0); Mean Corpuscular Hemoglobin 29.4 pg (27.0-33.0); Mean Corpuscular Volume 94.5 fL (80.0-98.0); Mean Platelet Volume 11.8 fL (9.4-12.3); Monocytes Absolute Auto 0.6 X10*3/uL (0.1-1.2); Neutrophils Absolute Auto 4.1 x10*3/uL (2.0-8.3); Neutrophils Percent Auto 57.4 % (45-73); Platelet Count 201 X10*3/uL (160-400); Red Blood Count 4.18 X10*6/uL (4.20-5.50); Red Cell Distribution Width 13.8 % (11.0-16.0); White Blood Count 7.1 X10*3/uL (4.8-10.8)
[2023-07-05 09:15] LABS: Appearance Urine Clear; Color Urine Yellow; Glucose Urine UA Negative (Negative); Leukocyte Esterase Urine Negative (Negative); Nitrite Urine Negative (Negative); Urine Blood Negative (Negative); Urine Ketones Negative (Negative); Urine Protein Negative (Neg-Trace)
[2023-07-05 09:42] LABS: Alanine Aminotransferase 18 U/L (0-31); Albumin Level 4.4 g/dL (3.5-5.0); Alkaline Phosphatase 57 U/L (39-117); Anion Gap 13 (12-20); Aspartate Amino Transferase 17 U/L (5-31); Bilirubin Total 0.5 mg/dL (0.0-1.0); Blood Urea Nitrogen 13 mg/dL (9-16); Calcium 9.3 mg/dL (8.4-10.2); Carbon Dioxide 26 mmol/L (22-29); Chloride 108 mmol/L (96-108); Cholesterol 193 mg/dL (<200); Estimated Glomerular Filt Rate > 60; Glucose Fasting 94 mg/dL (60-99); HDL Cholesterol 50 mg/dL (>40); LDL Cholesterol Calculated 101 mg/dL (<100); Potassium 4.2 mmol/L (3.3-5.1); Sodium 143 mmol/L (135-145); Total Protein 7.4 g/dL (6.5-8.0); Triglycerides 213 mg/dL (<150)
[2023-07-05 09:59] LABS: Vitamin D 25-OH Total 33.8 ng/mL (>30)
== END 2023-07-05 08:13 | disposition home or self-care (01) ==
LOC: HO.LAB 08:12
PROVIDERS: PCP Internal Medicine; Visit Provider Internal Medicine
DX: E78.00 Pure hypercholesterolemia, unspecified (principal); R30.0 Dysuria; E55.9 Vitamin D deficiency, unspecified; I10 Essential (primary) hypertension
CPT/HCPCS: 36415; 80053; 80061; 81003; 82306; 85025

== ENCOUNTER 2023-07-09 13:15 | Outpatient (AMB) | payer OTHER, SELFPAY ==
[2023-07-09 13:19] VITALS: BP 138/86; PULSE 89; O2SAT 99; BMI 30.2
--- NOTE | 2023-07-09 13:19 | MHC.PC.OV ---
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 Accompanied by: Self / Same As Patient Allergies naproxen Allergy (Verified 07/09/23 14:00) Vomiting Medication List - Last Reconciled 07/09/23 by Ruddy Lunsford MD amoxicillin 500 mg PO Q8H 7 days atorvastatin 10 mg PO DAILY 90 days docusate sodium (Colace) 200 mg (2 x 100 mg) PO BEDTIME doxycycline monohydrate 100 mg PO BID 7 days ergocalciferol (vitamin D2) 1,250 mcg PO QWEEK ibuprofen 600 mg PO BID PRN 30 days lisinopril 30 mg PO DAILY loratadine 10 mg PO DAILY 90 days methylcellulose (laxative) (Citrucel) 500 mg PO BID mometasone 0.1% 1 appl topical DAILY PRN 15 days omeprazole 20 mg PO QAM polyethylene glycol 3350 17 grams PO DAILY 30 days tramadol 50 mg PO TID PRN 30 days Tobacco use date assessed: 07/09/23 Dental Screening Dental Screen Date: 07/09/23 Did you have a dental visit in the last 12 months?: Yes Did you have a dental problem in the last 6 months where you did not have access to dental care?: No Was dental information given to patient?: Patient has dentist HPI hyperlipidemia, DM, HTN, hyperparathyroidism HPI Details Patient comes in today for her follow up visit States that she has noticed increasing back pain lately, especially after she takes her cholesterol Rx Relates that she tried taking her Rx every other day and has noticed that her back does not hurt as bad on the days she skips her Rx - is wondering if she can be tried on some other Rx for her cholesterol that will not cause her back pain to get worse She denies any headaches or dizziness Denies any chest pains, no SOB No nausea/vomiting, no abdominal pain No change in bowel habits noted Also reports experiencing increasing pain in her right shoulder lately Needs her Tramadol Rx refilled Had her follow up labs done a few days ago - to discuss her results [facility] Medical History Facet arthritis of lumbar region Allergic rhinitis Overweight (BMI 25.0-29.9) COVID-19 vaccine series completed White coat syndrome with hypertension Post-operative nausea and vomiting Dermatitis Obesity (BMI 30-39.9) Insomnia Closed fracture of left ankle Hematuria GERD without esophagitis Elevated LFTs Vitamin D deficiency Cervical spondylosis Benign essential hypertension Pure hypercholesterolemia Kidney stones HTN (hypertension) Surgical History Hx of colonoscopy History of fracture of left ankle History of lithotripsy Family History Father Heart attack Mother Breast cancer Sister Breast cancer Diabetes Social History Housing: Apartment Are you a primary nursing care partner to a significant other at home: No Do you presently have visiting nurse or other home services: No Alcohol intake: never Patient Tobacco Use Status: Never used Tobacco e-Cigarette/Vaping Use: Never Used Second Hand Smoke Exposure: No service: No Current occupational status: employed Current occupation: home care Cognitive needs: No Hearing needs: No Vision needs: No Female Reproductive History Menstrual Age of Menarche: 15 Questionnaire PHQ-9 Over the last 2 weeks, how often have you been bothered by any of the following problems? 1. Little interest or pleasure in doing things: not at all 2. Feeling down, depressed, or hopeless: not at all 3. Trouble falling or staying asleep, or sleeping too much: not at all 4. Feeling tired or having little energy: not at all 5. Poor appetite or overeating: not at all 6. Feeling bad about yourself - or that you are a failure or have let yourself or your family down: not at all 7. Trouble concentrating on things, such as reading the newspaper or watching television: not at all 8. Moving or speaking so slowly that other people could have noticed. Or the opposite - being so fidgety or restless that you have been moving around a lot more than usual: not at all 9. Thoughts that you would be better off or of hurting yourself in some way: not at all Total score: 0 Depression Screening Interpretation: Negative Depression Screening Done: Yes 80413 - PHQ-9 Billing: Yes Source: Developed by Drs. Danielito Chaudhari, Tung Benitez and colleagues, with an educational beck from [employer]. Thrive Questionnaire Date Thrive assessed: 07/09/23 I am a: Patient What is your living situation today?: I have a steady place to live Within the past 12 months, did the food you bought not last and you didn't have the money to get more?: Never true Within the past 12 months, did you worry whether your food would run out before you got money to buy more?: Never true Do you have trouble paying for medicines?: No Do you have trouble getting transportation to medical appointments?: No Do you have trouble paying your heating and electricity bill?: No Do you have trouble taking care of your child, family member or friend?: No Do you have trouble with day-to-day activities such as bathing, preparing meals, shopping, managing finances, etc.?: No Are you currently unemployed and looking for a job?: No Are you interested in more education?: No Please select the resources that you would like help with: None Currently or been in a relationship where the following occur: no concerns reported AUDIT C Alcohol Use Questionnaire (AUDIT-C) 1. How often do you have a drink containing alcohol?: Never 3. How often do you have six or more drinks on one occasion?: Never Total Score: 0 Score Reviewed/Action Taken: Yes KRISTYN-7 AMB Questionnaire KRISTYN-7 Date KRISTYN - 7 assessed: 07/09/23 Feeling nervous, anxious, or on edge: 0 = Not at all Not being able to stop or control worryin = Not at all Worrying too much about different things: 0 = Not at all Trouble relaxin = Not at all Being so restless that it is hard to sit still: 0 = Not at all Becoming easily annoyed or irritable: 0 = Not at all Feeling afraid as if something awful might happen: 0 = Not at all Total KRISTYN-7 score (0-4 normal; 5-9 mild; 10-14 moderate; 15-21 severe): 0 Source: Developed by Stephanie De León Kurt Kroenke and colleagues, with an educational beck from [employer]. Review of Systems Const Denies chills, Denies fatigue, Denies fever(s) and Denies headache(s) ENT Denies dysphagia, Denies dizziness, Denies otalgia, Denies headache(s), Reports neck pain (on and off), Denies odynophagia and Denies sore throat Card Denies chest pain, Denies rapid heart rate, Denies irregular heart rhythm, Denies palpitations and Denies dyspnea Resp Denies chest congestion, Denies cough, Denies dyspnea and Denies wheezing GI Denies abdominal pain, Denies constipation, Denies dysphagia, Denies heartburn, Denies diarrhea, Denies nausea, Denies odynophagia and Denies vomiting Denies urinary frequency, Denies dysuria and Denies urinary urgency Musc Reports back pain (increasing lately - see HPI), Reports arthralgias (right shoulder - increasing), Denies joint swelling, Denies loss of height, Denies muscle weakness and Reports neck pain (on and off) Skin/Breast Denies rash Neuro Denies dizziness, Denies headache(s) and Denies paresthesias Psych Denies anxiety and Denies depression Endo Denies fatigue and Denies palpitations Munir/Lymph Denies easy bruising Aller/Immun Denies wheezing Physical exam (Primary Care) Vital Signs: Last Vital Signs Pulse 89 07/09/23 13:19 BP 138/86 07/09/23 13:19 Pulse Ox 99 07/09/23 13:19 Oxygen Delivery Method Room Air 07/09/23 13:19 BMI result Body Mass Index 30.2 Tobacco/Smoking Status: Tobacco use Status Tobacco use date assessed 07/09/23 07/09/23 13:21 Patient Tobacco Use Status Never used Tobacco 07/09/23 13:21 e-Cigarette/Vaping Use Never Used 07/09/23 13:21 PHQ-9: PHQ-9 Score PHQ-9: Total score 0 07/09/23 13:27 Depression Screening Interpretation: Negative Thrive Assessment: Date of Thrive Assessment Date Thrive assessed 07/09/23 07/09/23 13:21 Currently or been in a relationship where the following occur: no concerns reported Const General: no acute distress and alert HENMT Ears: TM's normal bilaterally and EAC's normal Throat: Yes posterior oropharynx normal and Yes tonsils normal (no TP congestion) Neck Neck: Yes no lymphadenopathy and Yes supple Thyroid: Thyroid normal Resp Auscultation: clear to auscultation bilaterally, no rales and no wheezes Cardio Rate: regular rate Rhythm: regular rhythm Heart sounds: no murmurs GI Palpation (GI): Soft to palpation and nontender Auscultation: normal bowel sounds General: Yes no CVA tenderness Back/Spine/Pelvis Back: no CVA tenderness Cervical Spine: Cervical spine tenderness (mild) Thoracic/Lumbar Spine: paraspinal muscle tenderness bilaterally in the upper thoracic, in the mid thoracic, in the lower thoracic, in the upper lumbar, in the mid lumbar and in the lower lumbar and lumbar spinal tenderness (more on the right side) Skin Rashes: no rashes Extrem General: Yes no clubbing, cyanosis or edema Right upper extremity: shoulder/upper arm Details: tenderness (increasing) Location: of the A-C joint and normal ROM Results Reviewed Results Reviewed: Laboratory Tests 03/26/23 07/05/23 07/05/23 09:17 08:26 08:31 WBC 7.1 Hgb 12.3 Hct 39.5 Plt Count 201 Sodium 143 Potassium 4.2 Creatinine 0.73 Estimated GFR > 60 Fasting Glucose 94 Calcium 9.3 AST 17 ALT 18 Triglycerides 213 H Cholesterol 193 LDL Cholesterol, Calc 101 H HDL Cholesterol 25-OH Vitamin D Total TSH 1.66 Ur Specific [place] 1.020 Urine Protein Negative Urine Glucose (UA) Negative Urine Blood Negative 07/05/23 08:31 WBC Hgb Hct Plt Count Sodium Potassium Creatinine Estimated GFR Fasting Glucose Calcium AST ALT Triglycerides Cholesterol LDL Cholesterol, Calc HDL Cholesterol 50 25-OH Vitamin D Total 33.8 TSH Ur Specific [place] Urine Protein Urine Glucose (UA) Urine Blood Assessment and Plan Assessment & Plan (1) Pure hypercholesterolemia: Code(s): E78.00 - Pure hypercholesterolemia, unspecified Plan: Results of her labs done a few days ago reviewed and discussed with patient - cautioned that her triglyceride level has increased significantly from previous Reinforced low cholesterol diet She was on Atorvastatin 10 mg QD in the past but notes that her back pain increases when she takes the Rx; has tried taking it every other day recently and has noticed that her back pain is not as bad on the day she skips the Rx Will try switching her over to Rosuvastatin 5 mg QD to see if her low back pain will subside Will recheck her labs and fasting lipids in 3 months for follow up (2) Benign essential hypertension: Code(s): I10 - Essential (primary) hypertension Plan: Reinforced low sodium diet - goal is systolic BP of at least 120 to 130 mm or less Continue Lisinopril 30 mg QD (3) Elevated LFTs: Code(s): R79.89 - Other specified abnormal findings of blood chemistry Plan: Resolved; her LFTs have remained normal on her recent labs - was most likely related to her weight and cholesterol level Will continue to monitor her LFTs regularly (4) Cervical spondylosis: Code(s): M47.812 - Spondylosis without myelopathy or radiculopathy, cervical region Plan: Continue Ibuprofen 600 mg TID with food PRN, Tizanidine 4 mg TID PRN and Tramadol 50 mg TID PRN (5) Facet arthritis of lumbar region: Code(s): M47.816 - Spondylosis without myelopathy or radiculopathy, lumbar region Plan: Mostly over the right lower back - pain/symptoms are due to lumbar spine DDD and facet arthritis Lumbar spine x-rays done back in 2012 at [facility] were normal but repeat lumbar spine x-rays done last year (2021) revealed (+) mild disc height loss at L5-S1 as well as mild L5-S1 facet arthropathy She was referred to physical therapy but because of her elbow injury, she was never able to start her PT Reinforced activity and weight-lifting restrictions States that she has Ibuprofen and Tramadol to take when needed for pain (6) Closed fracture of head of right radius with routine healing: Code(s): S52.121D - Displaced fracture of head of right radius, subsequent encounter for closed fracture with routine healing Qualifiers: Fracture alignment: nondisplaced Qualified Code(s): S52.124D - Nondisplaced fracture of head of right radius, subsequent encounter for closed fracture with routine healing Plan: States that her elbow symptoms/pain have improved and resolved at this time Fracture of her right radial head was non-displaced and patient did not require any surgical intervention S/P physical therapy with some improvement although pain still recurs at times, especially with increased activity Follow up with orthopedics as scheduled or as needed (7) Right shoulder pain: Code(s): M25.511 - Pain in right shoulder Qualifiers: Chronicity: unspecified Qualified Code(s): M25.511 - Pain in right shoulder Plan: X-rays of the right shoulder done a few months ago came out normal Is advised again that her recent increasing pain in the shoulder may be related to her previous Hx of radial head fracture Have recommend that she can either go to physical therapy for her shoulder or see orthopedics for further evaluation and management - per request, will refer her to orthopedics (8) GERD without esophagitis: Code(s): K21.9 - Gastro-esophageal reflux disease without esophagitis Plan: Dietary restrictions reinforced Continue Famotidine 40 mg Q HS PRN and Omeprazole 20 mg QD (9) Vitamin D deficiency: Code(s): E55.9 - Vitamin D deficiency, unspecified Plan: Continue Vitamin D2 73655 units once a week Reassured that her BMD (index) done in June 2022 came back normal - will recheck in 3 years (2024) for follow up (10) Allergic rhinitis: Code(s): J30.9 - Allergic rhinitis, unspecified Qualifiers: Allergic rhinitis trigger: unspecified Allergic rhinitis seasonality: unspecified Qualified Code(s): J30.9 - Allergic rhinitis, unspecified Plan: Continue Loratadine 10 mg QD PRN If symptoms are not adequately controlled on oral antihistamine alone, can add Fluticasone nasal spray QD PRN (11) Dermatitis: Code(s): L30.9 - Dermatitis, unspecified Plan: Continue Mometasone 0.1% cream QD PRN (12) Insomnia: Code(s): G47.00 - Insomnia, unspecified Qualifiers: Insomnia type: primary Qualified Code(s): F51.01 - Primary insomnia Plan: Sleep hygiene reinforced Continue Trazodone 50 mg 1/2 to 1 tablet Q HS PRN (13) Overweight (BMI 25.0-29.9): Code(s): E66.3 - Overweight Plan: Reinforced diet/exercise as tolerated/lose weight Plan Follow up in 3 months Orders: Orders Lipid Panel 3 Months E78.00 - Pure hypercholesterolemia, unspecified TSH reflex Free T4 3 Months E78.00 - Pure hypercholesterolemia, unspecified UA CC w/rflx Micro + Cult 3 Months R30.0 - Dysuria Vitamin D 25-OH Total 3 Months E55.9 - Vitamin D deficiency, unspecified Complete Blood Count Auto Diff 3 Months I10 - Essential (primary) hypertension Comprehensive [place]. Panel Fast 3 Months E78.00 - Pure hypercholesterolemia, unspecified Erythrocyte Sedimentation Rate 3 Months M79.7 - Fibromyalgia Referrals Orthopedics Referral M25.511 - Pain in right shoulder Medications: New rosuvastatin 5 mg PO DAILY 30 days 30 tabs 3RF Refilled tramadol 50 mg PO TID 30 days PRN 90 tabs 0RF pain Discontinued atorvastatin Discontinued Reason: Doctor's Order 10 mg PO DAILY 90 days 90 tabs 1RF doxycycline monohydrate Discontinued Reason: Patient Completed Course 100 mg PO BID 7 days 14 caps 0RF amoxicillin Discontinued Reason: Patient Completed Course 500 mg PO Q8H 7 days 21 caps 0RF Coding Level of Care Code Est Pt Level 4 (86429) Diagnoses Pure hypercholesterolemia E78.00 Benign essential hypertension I10 Elevated LFTs R79.89 Cervical spondylosis M47.812 Facet arthritis of lumbar region M47.816 Closed nondisplaced fracture of head of right radius with routine healing, subsequent encounter S52.124D Fracture alignment: nondisplaced Right shoulder pain, unspecified chronicity M25.511 Chronicity: unspecified GERD without esophagitis K21.9 Vitamin D deficiency E55.9 Allergic rhinitis, unspecified seasonality, unspecified trigger J30.9 Allergic rhinitis trigger: unspecified Allergic rhinitis seasonality: unspecified Dermatitis L30.9 Primary insomnia F51.01 Insomnia type: primary Overweight (BMI 25.0-29.9) E66.3
== END 2023-07-09 14:23 | disposition home or self-care (01) ==
PROVIDERS: PCP Internal Medicine; Visit Provider Internal Medicine
DX: E78.00 Pure hypercholesterolemia, unspecified (principal); I10 Essential (primary) hypertension; R79.89 Other specified abnormal findings of blood chemistry; M47.812 Spondylosis without myelopathy or radiculopathy, cervical region; M47.816 Spondylosis without myelopathy or radiculopathy, lumbar region; S52.124D Nondisplaced fracture of head of right radius, subsequent encounter for closed fracture with routine healing; M25.511 Pain in right shoulder; K21.9 Gastro-esophageal reflux disease without esophagitis; E55.9 Vitamin D deficiency, unspecified; J30.9 Allergic rhinitis, unspecified; L30.9 Dermatitis, unspecified; F51.01 Primary insomnia; E66.3 Overweight
CPT/HCPCS: 99214

== ENCOUNTER 2023-07-24 10:39 | Outpatient (AMB) | payer OTHER, SELFPAY ==
[2023-07-24 10:48] VITALS: BP 140/82
--- NOTE | 2023-07-24 10:48 | MHC.OFFVIS ---
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 She is not having any physical science professor concerns this year at all. She has gone for colonoscopy screens bone scan screens with her primary and she has had her mammograms and is up-to-date in every things been fine. She works out at [employer] 3 times a week. She is not having any issues whatsoever and no worries about STDs either she is in a monogamous relationship and everything is good she is having some pain in her shoulder for the last several months that she thinks might be related to having fractured her arm last year and she had to hold it in a certain way. She has an appointment tomorrow at Orthopedics to get it checked out her last Pap smear was negative in 2020 and she has never had an abnormal 1. [facility] Medical History Facet arthritis of lumbar region Allergic rhinitis Overweight (BMI 25.0-29.9) COVID-19 vaccine series completed White coat syndrome with hypertension Post-operative nausea and vomiting Dermatitis Obesity (BMI 30-39.9) Insomnia Closed fracture of left ankle Hematuria GERD without esophagitis Elevated LFTs Vitamin D deficiency Cervical spondylosis Benign essential hypertension Pure hypercholesterolemia Kidney stones HTN (hypertension) Surgical History Hx of colonoscopy History of fracture of left ankle History of lithotripsy Family History Father Heart attack Mother Breast cancer Sister Breast cancer Diabetes Social History Housing: Apartment Are you a primary adult live in caregiver to a significant other at home: No Do you presently have visiting nurse or other home services: No Alcohol intake: never Patient Tobacco Use Status: Never used Tobacco e-Cigarette/Vaping Use: Never Used Second Hand Smoke Exposure: No service: No Current occupational status: employed Current occupation: home care Cognitive needs: No Hearing needs: No Vision needs: No Female Reproductive History Menstrual Age of Menarche: 15 control method: none History of abnormal pap smear: No (03/17/21,neg) History of abnormal mammogram: No (04/28negative) Physical Exam Vital Signs: Last Vital Signs BP 140/82 H 07/24/23 10:48 BMI result Body Mass Index 30.0 Const General: healthy appearing, comfortable, no acute distress, well developed and alert Nutritional Appearance: average body habitus Orientation/consciousness: patient oriented x3 Limitations: no limitations HEENT Head: Yes normocephalic Neck Neck: Yes normal visual inspection Chest Chest palpation & inspection: normal inspection of the chest Breast/axilla inspection: normal inspection of the breasts and normal inspection of the axillae Breast/axilla palpation: normal palpation of the breasts and normal palpation of the axillae Resp Effort & Inspection: normal respiratory effort GI Inspection: Yes normal to inspection, No Abdominal wall edema and No distended Palpation (GI): Soft to palpation and nontender Other: Vulva within normal limits vagina pink and moist. Cervix multiparous smooth healthy appearing there is a tiny polyp extruding through cervical os. Uterus is small firm mobile midposition to anteverted nontender adnexa nontender good tone with Kegel. General: Yes bladder normal to palpation External Female Exam: normal external appearance and normal appearance of the urethra Speculum Exam - Vagina: normal appearance of the vagina, normal palpation and normal vaginal discharge Speculum Exam - Cervix: normal appearance of the cervix, normal palpation and nontender Bimanual exam- vagina & uterus: normal bimanual exam, normal palpation, uterine size normal, bladder normal to palpation, consistency normal, normal palpation, uterine mobility normal, uterine shape normal, No Cervical tenderness present, non-tender and no cervical motion tenderness Bimanual Exam- Adnexa, other: normal adnexae, no masses, normal and No adnexal tenderness Neuro General: patient oriented x3 Results Reviewed Results Reviewed: Name: Nichelle Green Age/Sex: 56/F Attending: Karina Schafer CNM : 1965 Submitted by: Karina Schafer Copies to: Ruddy Lunsford MD MR #: [id number] Status: DEP REF Collected: 03/16/21 Location: .LAB Received: 03/17/21 Interpretation Satisfactory for evaluation. Negative for intraepithelial lesion or malignancy. HPV mRNA E6/E7: NOT DETECTED This assay detects E6/E7 viral messenger RNA (mRNA) from 14 high-risk HPV types (16, 18, 31, 33, 35, 39, 45, 51, 52, 56, 58, 59, 66, 68) HPV testing performed by [facility], [place], [place]. See reference laboratory portion of the EMR for entire report. Clinical Information LMP: Post menopause, 2016 Previous PAP test: 09/19/16, wnl Material Received ThinPrep cervical Copies To Ruddy Lunsford MD [address] [address] [address] [address] Electronically Signed By: FRANCISCO Randle (ASCP) 03/22/21 1049 The Pap Test is a screening procedure with the inherent possibility of both false negative and false positive results. Results should be interpreted in the context of historic and current clinical findings. Reliability of the Pap Test is enhanced by performing the test on a regular repetitive basis. Patient: Page 1 of 1 Assessment & Plan Assessment & Plan (1) Right shoulder pain: Code(s): M25.511 - Pain in right shoulder Qualifiers: Chronicity: unspecified Qualified Code(s): M25.511 - Pain in right shoulder (2) Well woman exam with routine gynecological exam: Code(s): Z01.419 - Encounter for gynecological examination (general) (routine) without abnormal findings (3) Overweight (BMI 25.0-29.9): Code(s): E66.3 - Overweight (4) Cervical cancer screening: Comment: 03/26 pap= neg, neg hpv Code(s): Z12.4 - Encounter for screening for malignant neoplasm of cervix (5) Cervical polyp: Code(s): N84.1 - Polyp of cervix uteri Plan -----Discussed in this visit the following: healthy balanced diet, regular and consistent exercise, getting recommended health screens, doing the best she can for her particular health concerns, kegel exercises, pap smear screening and followup recommendations, mammography screening and SBE, normal changes in cycles in her life stage--- . Patient has been getting her mammograms and colon cancer screenings in bone density screenings all fine though polyps were found on the colon cancer screening and she will be repeating that in 3 years. She has been exercising 3 times a week or 4 so she tries not to gain more weight because of her high blood pressure so she is trying to keep ahead of everything. She will be seeing orthopedics tomorrow for her right shoulder pain when she is already doing the exercises that she thinks would be recommended in physical therapy but she will see what they have to say I described her cervical polyp for her and helped her look up some reputable sites to review for information about cervical polyp her next appointment will be with Dr. Hallie duckworth at the [facility] for possible cervical polypectomy and depending on the results she will be informed after that. I reviewed that they are most commonly benign and a very common finding. She is not having any abnormal bleeding or any symptoms at all. Orders: Orders Bacterial Vaginosis Panel Today Z20.2 - Contact with and (suspected) exposure to infections with a predominantly sexual mode of transmission CT NG by PCR Today Z01.419 - Encounter for gynecological examination (general) (routine) without abnormal findings Coding Level of Care Code Est Pt Prev Care 40-64y(05570) Diagnoses Right shoulder pain, unspecified chronicity M25.511 Chronicity: unspecified Well woman exam with routine gynecological exam Z01.419 Overweight (BMI 25.0-29.9) E66.3 Cervical cancer screening Z12.4 Cervical polyp N84.1
== END 2023-07-24 11:43 | disposition home or self-care (01) ==
LOC: HO.HWSM 10:39
PROVIDERS: PCP Internal Medicine; Visit Provider Advanced Practice Midwife
DX: Z01.419 Encounter for gynecological examination (general) (routine) without abnormal findings (principal); N84.1 Polyp of cervix uteri; E66.3 Overweight
CPT/HCPCS: 99396

== ENCOUNTER 2023-07-24 10:39 | Outpatient (REF) | payer OTHER, SELFPAY ==
[2023-07-25 06:11] LABS: CT PCR NOT DETECTED (Not Detect.); NG PCR NOT DETECTED (Not Detect.)
[2023-07-25 12:44] LABS: BV Int Neg Control Negative (Negative); BV Int Pos Control Positive (Positive)
== END 2023-07-24 10:40 | disposition home or self-care (01) ==
LOC: HO.LAB 10:39
PROVIDERS: PCP Internal Medicine; Visit Provider Advanced Practice Midwife
DX: Z01.419 Encounter for gynecological examination (general) (routine) without abnormal findings (principal); N84.1 Polyp of cervix uteri; E66.3 Overweight; M25.511 Pain in right shoulder; Z11.3 Encounter for screening for infections with a predominantly sexual mode of transmission; Z20.2 Contact with and (suspected) exposure to infections with a predominantly sexual mode of transmission; Z68.30 Body mass index [BMI] 30.0-30.9, adult; Z78.0 Asymptomatic menopausal state
CPT/HCPCS: 0353U; 87480; 87510; 87660; 99396

== ENCOUNTER 2023-07-25 10:50 | Outpatient (AMB) | payer OTHER, SELFPAY ==
--- NOTE | 2023-07-25 10:51 | A.OFFVIS_ITS ---
Intake Vital Signs 07/25/23 10:51 Height 5 ft 2 in Weight 164 lb BMI 30.0 Intake Visit Reasons: New Prob - Rt Shoulder pain Intake Note: Nichelle is a 58 year old right hand dominant female who presents today for a new problem visit with complaints of right shoulder pain. Hx of rt radial head fx, DOI 02/24/22. She states pain with a tightness sensation in her shoulder that travels up her neck and down to her bicep. Denies numbness or tingling. Finds temporary relief with ibuprofen and tramadol. Allergies naproxen Allergy (Verified 07/25/23 11:06) Vomiting Medication List - Last Reconciled 07/25/23 by Kamron Singer PA-C docusate sodium (Colace) 200 mg (2 x 100 mg) PO BEDTIME ergocalciferol (vitamin D2) 1,250 mcg PO QWEEK ibuprofen 600 mg PO BID PRN 30 days lisinopril 30 mg PO DAILY loratadine 10 mg PO DAILY 90 days methylcellulose (laxative) (Citrucel) 500 mg PO BID mometasone 0.1% 1 appl topical DAILY PRN 15 days omeprazole 20 mg PO QAM polyethylene glycol 3350 17 grams PO DAILY 30 days rosuvastatin 5 mg PO DAILY 30 days tramadol 50 mg PO TID PRN 30 days HPI New Prob - Rt Shoulder pain HPI Details 58-year-old right hand dominant female giuliana billingsley presents to the office today for evaluation of right shoulder pain. She states she has pain and tightness sensation in her shoulder which radiates up to her neck and down to her biceps. She denies any numbness or tingling or pain with reaching out. She finds transient relief with ibuprofen and tramadol. She has a history of radial head fracture, DOI 02/24/23. [facility] Medical History Facet arthritis of lumbar region Allergic rhinitis Overweight (BMI 25.0-29.9) COVID-19 vaccine series completed White coat syndrome with hypertension Post-operative nausea and vomiting Dermatitis Obesity (BMI 30-39.9) Insomnia Closed fracture of left ankle Hematuria GERD without esophagitis Elevated LFTs Vitamin D deficiency Cervical spondylosis Benign essential hypertension Pure hypercholesterolemia Kidney stones HTN (hypertension) Surgical History Hx of colonoscopy History of fracture of left ankle History of lithotripsy Family History Father Heart attack Mother Breast cancer Sister Breast cancer Diabetes Social History Housing: Apartment Are you a primary wound care nurse to a significant other at home: No Do you presently have visiting nurse or other home services: No Alcohol intake: never Patient Tobacco Use Status: Never used Tobacco e-Cigarette/Vaping Use: Never Used Second Hand Smoke Exposure: No service: No Current occupational status: employed Current occupation: home care Cognitive needs: No Hearing needs: No Vision needs: No Female Reproductive History Menstrual Age of Menarche: 15 Review of Systems Const All systems reviewed & are unremarkable except as noted in HPI and below Physical Exam Vital Signs: BMI result Body Mass Index 30.0 Extrem Other: Right shoulder normal to inspection. Tenderness over the bicipital groove and along the deltoid region of the shoulder. Forward flexion to 175, external rotation to 90, internal rotation to S1. 5/5 RTC strength. Positive Lynn. NVI. Results Reviewed Results Reviewed: Xrays were obtained in the office today and personally reviewed by me of the right shoulder show mild acj oa with type 2 acromion Assessment & Plan Assessment & Plan (1) Rotator cuff tendonitis: Code(s): M75.80 - Other shoulder lesions, unspecified shoulder Qualifiers: Laterality: right Qualified Code(s): M75.81 - Other shoulder lesions, right shoulder Plan We discussed options which include PT, NSAIDs and injections. The patient will defer on the injection today and proceed with PT and NSAIDs. If symptoms persist, the patient will contact me for an injection, otherwise, PRN. Orders: Orders PT Evaluation and Treatment Today M75.80 - Other shoulder lesions, unspecified shoulder Patient Instructions: Scribed for Kamron Singer PA-C, by Leon Cantu medical device, on 07/25/2023 at 11:00 AM LUIS ALFREDO. Kamron Mendoza PA-C, have personally reviewed and agree with the information entered by the scribe. Coding Level of Care Code Est Pt Level 3 (51049) Diagnoses Tendinitis of right rotator cuff M75.81 Laterality: right
== END 2023-07-25 11:53 | disposition home or self-care (01) ==
PROVIDERS: PCP Internal Medicine; Visit Provider Physician Assistant
DX: M75.81 Other shoulder lesions, right shoulder (principal)
CPT/HCPCS: 99213

== ENCOUNTER → 2023-07-25 10:50 | Outpatient (BNVA) | payer OTHER, SELFPAY | PROVIDERS: PCP Internal Medicine; Visit Provider Orthopaedic Surgery | DX: M75.81 Other shoulder lesions, right shoulder (principal) | CPT/HCPCS: 99212 ==

== ENCOUNTER 2023-09-05 13:15 | Outpatient (AMB) | payer OTHER, SELFPAY ==
--- NOTE | 2023-09-05 13:17 | A.OFFVIS_ITS ---
Intake Intake Visit Reasons: OV- Rt Shoulder pain Intake Note: 58 year old right hand dominant female presents to the office today for right shoulder pain. Pt states she has had this pain for a few months. Pt denies any trauma to her shoulder. Pt denies any numbness or tingling. Pt states the tramadol helps but if shes not taking it then the pain comes back right away. Pt states the pain goes from her shoulder up into her neck. Allergies naproxen Allergy (Verified 09/05/23 13:19) Vomiting HPI OV- Rt Shoulder pain HPI Details 58-year-old female who returns to the [facility] today for a follow-up of right shoulder pain. She continues to have pain in her right shoulder which radiates up to her neck. She denies any numbness, tingling or any previous injury. She finds transient relief with tramadol. She has no other concerns today. [facility] Medical History Facet arthritis of lumbar region Allergic rhinitis Overweight (BMI 25.0-29.9) COVID-19 vaccine series completed White coat syndrome with hypertension Post-operative nausea and vomiting Dermatitis Obesity (BMI 30-39.9) Insomnia Closed fracture of left ankle Hematuria GERD without esophagitis Elevated LFTs Vitamin D deficiency Cervical spondylosis Benign essential hypertension Pure hypercholesterolemia Kidney stones HTN (hypertension) Surgical History Hx of colonoscopy History of fracture of left ankle History of lithotripsy Family History Father Heart attack Mother Breast cancer Sister Breast cancer Diabetes Social History Housing: Apartment Are you a primary post acute care registered nurse to a significant other at home: No Do you presently have visiting nurse or other home services: No Alcohol intake: never Patient Tobacco Use Status: Never used Tobacco e-Cigarette/Vaping Use: Never Used Second Hand Smoke Exposure: No service: No Current occupational status: employed Current occupation: home care Cognitive needs: No Hearing needs: No Vision needs: No Female Reproductive History Menstrual Age of Menarche: 15 Review of Systems Const All systems reviewed & are unremarkable except as noted in HPI and below Physical Exam Extrem Other: Right shoulder normal to inspection. Tenderness over the bicipital groove and along the deltoid region of the shoulder. Forward flexion to 175, external rotation to 90, internal rotation to S1. 5/5 RTC strength. Positive Lynn. NVI. Office Procedures Joint Injection/Drain Joint Injection/Drain Primary Site: right shoulder Prep: site was prepped using aseptic technique, ethochloride spray was applied and injection warnings given Injected: 80 mg of, DepoMedrol and in the joint Approach Used: posterolateral Procedure: The patient tolerated the procedure well and there was some relief with the local anesthesia Coding 53811 - Glenohumeral/Tronchanteric Bursa/Intraarticular Procedure code (CPT) selection complete Assessment & Plan Assessment & Plan (1) Rotator cuff tendonitis: Code(s): M75.80 - Other shoulder lesions, unspecified shoulder Qualifiers: Laterality: right Qualified Code(s): M75.81 - Other shoulder lesions, right shoulder Plan We discussed options today which include steroid injection. They did consent to move forward with the right shoulder injection, which was tolerated well. I recommended rest, ice and elevation and OTC anti-inflammatories PRN for discomfort. I also put in a new referral for physical therapy in the office today. If symptoms persist or worsens over the next 6-8 weeks, patient will contact the office, otherwise follow-up as needed. Patient Instructions: Scribed for Kamron Singer PA-C, by Leon Cantu medical safety director, on 09/05/2023 at 1:30 PM EST. I, Kamron Singer PA-C, have personally reviewed and agree with the information entered by the scribe. Coding Level of Care Code Est Pt Level 3 (29043) Diagnoses Tendinitis of right rotator cuff M75.81 Laterality: right CPT Codes Coding - Joint 7: 83084 - Glenohumeral/Tronchanteric Bursa/Intraarticular ([id number])
== END 2023-09-05 14:21 | disposition home or self-care (01) ==
PROVIDERS: PCP Internal Medicine; Visit Provider Physician Assistant
DX: M75.81 Other shoulder lesions, right shoulder (principal)
CPT/HCPCS: 20610; 99213

== ENCOUNTER → 2023-09-05 13:15 | Outpatient (BNVA) | payer OTHER, SELFPAY | PROVIDERS: PCP Internal Medicine; Visit Provider Physician Assistant | DX: M75.81 Other shoulder lesions, right shoulder (principal) | CPT/HCPCS: 20610; 99212; J1040 ==

== ENCOUNTER 2023-10-12 07:57 | Outpatient (REF) | payer OTHER, SELFPAY ==
[2023-10-12 08:14] LABS: MANUAL DIFF FLAG NO
[2023-10-12 08:51] LABS: Basophils Percent Auto 0.3 % (0-2); Eosinophils Absolute Auto 0.2 X10*3/uL (0.0-0.4); Eosinophils Percent Auto 3.2 % (0-4); Imm Gran Abs Auto 0.02 X10*3/uL (0.00-0.03); Imm Gran Pct Auto 0.3 % (0.0-0.4); Lymphocytes Absolute Auto 2.4 X10*3/uL (1.2-4.9); Lymphocytes Percent Auto 38.4 % (20-40); Mean Corpuscular HGB Conc 31.6 g/dl (31.0-35.0); Mean Corpuscular Hemoglobin 29.9 pg (27.0-33.0); Mean Corpuscular Volume 94.5 fL (80.0-98.0); Mean Platelet Volume 11.6 fL (9.4-12.3); Monocytes Absolute Auto 0.6 X10*3/uL (0.1-1.2); Monocytes Percent Auto 8.8 % (2-11); Platelet Count 206 X10*3/uL (160-400); Red Blood Count 4.02 X10*6/uL (4.20-5.50); Red Cell Distribution Width 13.9 % (11.0-16.0); White Blood Count 6.2 X10*3/uL (4.8-10.8)
[2023-10-12 08:52] LABS: Appearance Urine Clear; Color Urine Yellow; Glucose Urine UA Negative (Negative); Leukocyte Esterase Urine Trace (Negative); Nitrite Urine Negative (Negative); UMIC TRIGGER UACC YES; Urine Blood Trace (Negative); Urine Ketones Negative (Negative); Urine Protein Negative (Neg-Trace)
[2023-10-12 08:56] LABS: Bacteria Urine None Seen (None Seen); Hyaline Casts Urine 0-2 /LPF (0-2); RBC Urine 0-2 /HPF (0-2); Squamous Epithelial Cell Urine 0-2 /HPF (0-2); WBC Urine 0-5 /HPF (0-5)
[2023-10-12 09:26] LABS: Erythrocyte Sedimentation Rate 12 MM/HR (0-20)
[2023-10-12 09:34] LABS: Alanine Aminotransferase 29 U/L (0-31); Albumin Level 4.5 g/dL (3.5-5.0); Alkaline Phosphatase 53 U/L (39-117); Anion Gap 12 (12-20); Aspartate Amino Transferase 21 U/L (5-31); Bilirubin Total 0.5 mg/dL (0.0-1.0); Blood Urea Nitrogen 12 mg/dL (9-16); Calcium 9.3 mg/dL (8.4-10.2); Carbon Dioxide 28 mmol/L (22-29); Chloride 109 mmol/L (96-108); Cholesterol 192 mg/dL (<200); Estimated Glomerular Filt Rate > 60; Glucose Fasting 95 mg/dL (60-99); HDL Cholesterol 62 mg/dL (>40); LDL Cholesterol Calculated 100 mg/dL (<100); Potassium 4.4 mmol/L (3.3-5.1); Sodium 145 mmol/L (135-145); Total Protein 7.3 g/dL (6.5-8.0); Triglycerides 150 mg/dL (<150)
[2023-10-12 09:50] LABS: TSH reflex Free T4 2.33 uIU/mL (0.32-4.0); Vitamin D 25-OH Total 28.2 ng/mL (>30)
== END 2023-10-12 07:58 | disposition home or self-care (01) ==
LOC: HO.LAB 07:57
PROVIDERS: PCP Internal Medicine; Visit Provider Internal Medicine
DX: E78.00 Pure hypercholesterolemia, unspecified (principal); M79.7 Fibromyalgia; E55.9 Vitamin D deficiency, unspecified; I10 Essential (primary) hypertension
CPT/HCPCS: 36415; 80053; 80061; 81001; 82306; 84443; 85025; 85652

== ENCOUNTER 2023-10-15 10:47 | Outpatient (AMB) | payer OTHER, SELFPAY ==
[2023-10-15 10:48] VITALS: BP 132/84; PULSE 90; O2SAT 97; BMI 30.5
--- NOTE | 2023-10-15 10:48 | MHC.PC.OV ---
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 Accompanied by: Self / Same As Patient Allergies naproxen Allergy (Verified 10/15/23 11:24) Vomiting Medication List - Last Reconciled 10/15/23 by Ruddy Lunsford MD docusate sodium (Colace) 200 mg (2 x 100 mg) PO BEDTIME ergocalciferol (vitamin D2) 1,250 mcg PO QWEEK ibuprofen 600 mg PO BID PRN 30 days lisinopril 30 mg PO DAILY loratadine 10 mg PO DAILY 90 days methylcellulose (laxative) (Citrucel) 500 mg PO BID mometasone 0.1% 1 appl topical DAILY PRN 15 days omeprazole 20 mg PO QAM polyethylene glycol 3350 17 grams PO DAILY 30 days rosuvastatin 5 mg PO DAILY 30 days tramadol 50 mg PO TID PRN 30 days Tobacco use date assessed: 10/15/23 Dental Screening Dental Screen Date: 10/15/23 Did you have a dental visit in the last 12 months?: Yes Did you have a dental problem in the last 6 months where you did not have access to dental care?: No Was dental information given to patient?: Patient has dentist HPI 3mth f/u HPI Details Patient comes in today for her follow up visit States that she feels okay She denies any headaches or dizziness Denies any chest pains, no SOB No nausea/vomiting, no abdominal pain No change in bowel habits noted Had her follow up labs done a few days ago - to discuss her results [facility] Medical History Facet arthritis of lumbar region Allergic rhinitis Overweight (BMI 25.0-29.9) COVID-19 vaccine series completed White coat syndrome with hypertension Post-operative nausea and vomiting Dermatitis Obesity (BMI 30-39.9) Insomnia Closed fracture of left ankle Hematuria GERD without esophagitis Elevated LFTs Vitamin D deficiency Cervical spondylosis Benign essential hypertension Pure hypercholesterolemia Kidney stones HTN (hypertension) Surgical History Hx of colonoscopy History of fracture of left ankle History of lithotripsy Family History Father Heart attack Mother Breast cancer Sister Breast cancer Diabetes Social History Housing: Apartment Are you a primary healthcare analyst to a significant other at home: No Do you presently have visiting nurse or other home services: No Alcohol intake: never Patient Tobacco Use Status: Never used Tobacco e-Cigarette/Vaping Use: Never Used Second Hand Smoke Exposure: No service: No Current occupational status: employed Current occupation: home care Cognitive needs: No Hearing needs: No Vision needs: No Female Reproductive History Menstrual Age of Menarche: 15 Questionnaire PHQ-9 Over the last 2 weeks, how often have you been bothered by any of the following problems? 1. Little interest or pleasure in doing things: not at all 2. Feeling down, depressed, or hopeless: not at all 3. Trouble falling or staying asleep, or sleeping too much: not at all 4. Feeling tired or having little energy: not at all 5. Poor appetite or overeating: not at all 6. Feeling bad about yourself - or that you are a failure or have let yourself or your family down: not at all 7. Trouble concentrating on things, such as reading the newspaper or watching television: not at all 8. Moving or speaking so slowly that other people could have noticed. Or the opposite - being so fidgety or restless that you have been moving around a lot more than usual: not at all 9. Thoughts that you would be better off or of hurting yourself in some way: not at all Total score: 0 Depression Screening Interpretation: Negative Depression Screening Done: Yes 13283 - PHQ-9 Billing: Yes Source: Developed by Drs. Danielito Chaudhari, Stephanie Dinh, Tung Avalos and colleagues, with an educational beck from [employer]. Thrive Questionnaire Date Thrive assessed: 10/15/23 I am a: Patient What is your living situation today?: I have a steady place to live Within the past 12 months, did the food you bought not last and you didn't have the money to get more?: Never true Within the past 12 months, did you worry whether your food would run out before you got money to buy more?: Never true Do you have trouble paying for medicines?: No Do you have trouble getting transportation to medical appointments?: No Do you have trouble paying your heating and electricity bill?: No Do you have trouble taking care of your child, family member or friend?: No Do you have trouble with day-to-day activities such as bathing, preparing meals, shopping, managing finances, etc.?: No Are you currently unemployed and looking for a job?: No Are you interested in more education?: No Please select the resources that you would like help with: None Currently or been in a relationship where the following occur: no concerns reported THRIVE Score: 0 AUDIT C Alcohol Use Questionnaire (AUDIT-C) 1. How often do you have a drink containing alcohol?: Never 3. How often do you have six or more drinks on one occasion?: Never Total Score: 0 Score Reviewed/Action Taken: Yes KRISTYN-7 AMB Questionnaire KRISTYN-7 Date KRISTYN - 7 assessed: 10/15/23 Feeling nervous, anxious, or on edge: 0 = Not at all Not being able to stop or control worryin = Not at all Worrying too much about different things: 0 = Not at all Trouble relaxin = Not at all Being so restless that it is hard to sit still: 0 = Not at all Becoming easily annoyed or irritable: 0 = Not at all Feeling afraid as if something awful might happen: 0 = Not at all Total KRISTYN-7 score (0-4 normal; 5-9 mild; 10-14 moderate; 15-21 severe): 0 Source: Developed by Drs. Danielito Chaudhari, Stephanie Dinh, uTng Avalos and colleagues, with an educational beck from [employer]. Review of Systems Const Denies chills, Denies fatigue, Denies fever(s) and Denies headache(s) ENT Denies dysphagia, Denies dizziness, Denies otalgia, Denies headache(s), Reports neck pain (on and off), Denies odynophagia and Denies sore throat Card Denies chest pain, Denies rapid heart rate, Denies irregular heart rhythm, Denies palpitations and Denies dyspnea Resp Denies chest congestion, Denies cough, Denies dyspnea and Denies wheezing GI Denies abdominal pain, Denies constipation, Denies dysphagia, Denies heartburn, Denies diarrhea, Denies nausea, Denies odynophagia and Denies vomiting Denies urinary frequency, Denies dysuria and Denies urinary urgency Musc Reports back pain (increasing lately - see HPI), Reports arthralgias (right shoulder - increasing), Denies joint swelling, Denies loss of height, Denies muscle weakness and Reports neck pain (on and off) Skin/Breast Denies rash Neuro Denies dizziness, Denies headache(s) and Denies paresthesias Psych Denies anxiety and Denies depression Endo Denies fatigue and Denies palpitations Munir/Lymph Denies easy bruising Aller/Immun Denies wheezing Physical exam (Primary Care) Vital Signs: Last Vital Signs Pulse 90 10/15/23 10:48 BP 132/84 10/15/23 10:48 Pulse Ox 97 10/15/23 10:48 Oxygen Delivery Method Room Air 10/15/23 10:48 BMI result Body Mass Index 30.5 Tobacco/Smoking Status: Tobacco use Status Tobacco use date assessed 10/15/23 10/15/23 10:51 Patient Tobacco Use Status Never used Tobacco 10/15/23 10:51 e-Cigarette/Vaping Use Never Used 10/15/23 10:51 PHQ-9: PHQ-9 Score PHQ-9: Total score 0 10/15/23 11:37 Depression Screening Interpretation: Negative Thrive Assessment: Date of Thrive Assessment Date Thrive assessed 10/15/23 10/15/23 10:51 Currently or been in a relationship where the following occur: no concerns reported Const General: no acute distress and alert HENMT Ears: TM's normal bilaterally and EAC's normal Throat: Yes posterior oropharynx normal and Yes tonsils normal (no TP congestion) Neck Neck: Yes no lymphadenopathy and Yes supple Thyroid: Thyroid normal Resp Auscultation: clear to auscultation bilaterally, no rales and no wheezes Cardio Rate: regular rate Rhythm: regular rhythm Heart sounds: no murmurs GI Palpation (GI): Soft to palpation and nontender Auscultation: normal bowel sounds General: Yes no CVA tenderness Back/Spine/Pelvis Back: no CVA tenderness Cervical Spine: Cervical spine tenderness (mild) Thoracic/Lumbar Spine: paraspinal muscle tenderness bilaterally in the upper thoracic, in the mid thoracic, in the lower thoracic, in the upper lumbar, in the mid lumbar and in the lower lumbar and lumbar spinal tenderness (more on the right side) Skin Rashes: no rashes Extrem General: Yes no clubbing, cyanosis or edema Right upper extremity: shoulder/upper arm Details: tenderness Location: of the A-C joint and normal ROM Results Reviewed Results Reviewed: Laboratory Tests 10/12/23 10/12/23 10/12/23 08:10 08:10 08:12 WBC 6.2 Hgb 12.0 Hct 38.0 Plt Count 206 ESR 12 Sodium 145 Potassium 4.4 Creatinine 0.82 Estimated GFR Fasting Glucose Calcium AST 21 ALT 29 Triglycerides 150 H Cholesterol 192 LDL Cholesterol, Calc 100 H HDL Cholesterol 62 25-OH Vitamin D Total 28.2 L TSH 2.33 Ur Specific [place] 1.010 Urine Protein Negative Urine Glucose (UA) Negative Urine Blood Trace H Urine Nitrite Negative Ur Leukocyte Esterase Trace H 10/12/23 10/12/23 08:12 08:12 WBC Hgb Hct Plt Count ESR Sodium Potassium Creatinine Estimated GFR > 60 Fasting Glucose 95 Calcium 9.3 AST ALT Triglycerides Cholesterol LDL Cholesterol, Calc HDL Cholesterol 25-OH Vitamin D Total TSH Ur Specific [place] Urine Protein Urine Glucose (UA) Urine Blood Urine Nitrite Ur Leukocyte Esterase Assessment and Plan Assessment & Plan (1) Pure hypercholesterolemia: Code(s): E78.00 - Pure hypercholesterolemia, unspecified Plan: Results of her labs done a few days ago reviewed and discussed with patient - her serum triglyceride level has improved significantly from previous and is now back down to 150 mg/dl Reinforced low cholesterol diet She was on Atorvastatin 10 mg QD in the past but has noticed that her back pain increases when she takes the Rx; she has even tried taking it every other day recently and has noticed that her back pain is not as bad on the day she skips the Rx We switched her over to Rosuvastatin 5 mg QD a few months ago and she has been tolerating Rosuvastatin without any myalgia or side effects - to continue on Rosuvastatin 5 mg QD Will recheck her labs and fasting lipids in 3 months for follow up (2) Benign essential hypertension: Code(s): I10 - Essential (primary) hypertension Plan: Reinforced low sodium diet - goal is systolic BP of at least 120 to 130 mm or less Continue Lisinopril 30 mg QD (3) Elevated LFTs: Code(s): R79.89 - Other specified abnormal findings of blood chemistry Plan: Resolved; her LFTs have remained normal on her recent labs - was most likely related to her weight and cholesterol level Will continue to monitor her LFTs regularly (4) Cervical spondylosis: Code(s): M47.812 - Spondylosis without myelopathy or radiculopathy, cervical region Plan: Continue Ibuprofen 600 mg TID with food PRN, Tizanidine 4 mg TID PRN and Tramadol 50 mg TID PRN (5) Facet arthritis of lumbar region: Code(s): M47.816 - Spondylosis without myelopathy or radiculopathy, lumbar region Plan: Mostly over the right lower back - pain/symptoms are due to lumbar spine DDD and facet arthritis [place] [facility] [place] but repeat lumbar spine x-rays done in 2021 revealed (+) mild disc height loss at L5-S1 as well as mild L5-S1 facet arthropathy She was referred to physical therapy but because of her elbow injury, she was never able to start her PT Reinforced activity and weight-lifting restrictions States that she has Ibuprofen and Tramadol to take when needed for pain (6) Closed fracture of head of right radius with routine healing: Code(s): S52.121D - Displaced fracture of head of right radius, subsequent encounter for closed fracture with routine healing Qualifiers: Fracture alignment: nondisplaced Qualified Code(s): S52.124D - Nondisplaced fracture of head of right radius, subsequent encounter for closed fracture with routine healing Plan: States that her elbow symptoms/pain have improved and resolved at this time Fracture of her right radial head was non-displaced and patient did not require any surgical intervention S/P physical therapy with some improvement although pain still recurs at times, especially with increased activity Follow up with orthopedics as scheduled or as needed (7) Right shoulder pain: Code(s): M25.511 - Pain in right shoulder Qualifiers: Chronicity: unspecified Qualified Code(s): M25.511 - Pain in right shoulder Plan: X-rays of the right shoulder done a few months ago came out normal Is advised again that her recent increasing pain in the shoulder may be related to her previous Hx of radial head fracture Follow up with orthopedics as scheduled (8) GERD without esophagitis: Code(s): K21.9 - Gastro-esophageal reflux disease without esophagitis Plan: Dietary restrictions reinforced Continue Famotidine 40 mg Q HS PRN and Omeprazole 20 mg QD (9) Vitamin D deficiency: Code(s): E55.9 - Vitamin D deficiency, unspecified Plan: Continue Vitamin D2 30700 units once a week Reassured that her BMD (index) done in June 2022 came back normal - will recheck in 3 years (2024) for follow up (10) Allergic rhinitis: Code(s): J30.9 - Allergic rhinitis, unspecified Qualifiers: Allergic rhinitis seasonality: unspecified Allergic rhinitis trigger: unspecified Qualified Code(s): J30.9 - Allergic rhinitis, unspecified Plan: Continue Loratadine 10 mg QD PRN If symptoms are not adequately controlled on oral antihistamine alone, can add Fluticasone nasal spray QD PRN (11) Dermatitis: Code(s): L30.9 - Dermatitis, unspecified Plan: Continue Mometasone 0.1% cream QD PRN (12) Insomnia: Code(s): G47.00 - Insomnia, unspecified Qualifiers: Insomnia type: primary Qualified Code(s): F51.01 - Primary insomnia Plan: Sleep hygiene reinforced Continue Trazodone 50 mg 1/2 to 1 tablet Q HS PRN (13) Overweight (BMI 25.0-29.9): Code(s): E66.3 - Overweight Plan: Reinforced diet/exercise as tolerated/lose weight Plan Follow up in 3 months Orders: Orders Complete Blood Count Auto Diff 3 Months D64.9 - Anemia, unspecified Lipid Panel 3 Months E78.00 - Pure hypercholesterolemia, unspecified Vitamin B12 and Folate 3 Months E53.8 - Deficiency of other specified B group vitamins Comprehensive [place]. Panel Fast 3 Months E78.00 - Pure hypercholesterolemia, unspecified TSH reflex Free T4 3 Months E78.00 - Pure hypercholesterolemia, unspecified UA CC w/rflx Micro + Cult 3 Months R30.0 - Dysuria Vitamin D 25-OH Total 3 Months E55.9 - Vitamin D deficiency, unspecified Coding Level of Care Code Est Pt Level 4 (90463) Diagnoses Pure hypercholesterolemia E78.00 Benign essential hypertension I10 Elevated LFTs R79.89 Cervical spondylosis M47.812 Facet arthritis of lumbar region M47.816 Closed nondisplaced fracture of head of right radius with routine healing, subsequent encounter S52.124D Fracture alignment: nondisplaced Right shoulder pain, unspecified chronicity M25.511 Chronicity: unspecified GERD without esophagitis K21.9 Vitamin D deficiency E55.9 Allergic rhinitis, unspecified seasonality, unspecified trigger J30.9 Allergic rhinitis seasonality: unspecified Allergic rhinitis trigger: unspecified Dermatitis L30.9 Primary insomnia F51.01 Insomnia type: primary Overweight (BMI 25.0-29.9) E66.3
== END 2023-10-15 11:45 | disposition home or self-care (01) ==
PROVIDERS: PCP Internal Medicine; Visit Provider Internal Medicine
DX: E78.00 Pure hypercholesterolemia, unspecified (principal); I10 Essential (primary) hypertension; R79.89 Other specified abnormal findings of blood chemistry; M47.812 Spondylosis without myelopathy or radiculopathy, cervical region; M47.816 Spondylosis without myelopathy or radiculopathy, lumbar region; S52.124D Nondisplaced fracture of head of right radius, subsequent encounter for closed fracture with routine healing; M25.511 Pain in right shoulder; K21.9 Gastro-esophageal reflux disease without esophagitis; E55.9 Vitamin D deficiency, unspecified; J30.9 Allergic rhinitis, unspecified; L30.9 Dermatitis, unspecified; F51.01 Primary insomnia; E66.3 Overweight
CPT/HCPCS: 99214

== ENCOUNTER 2023-11-20 11:00 | Outpatient (RCR) | payer OTHER, SELFPAY ==
--- NOTE | 2023-10-23 16:01 | MHC.PT.EP ---
[facility] [place] Office [place] Office [place] Office [address] [phone] F: [phone] F: [phone] F: [phone] F: [phone] Physical Therapy Plan of Care Date of Evaluation: 10/23/23 Date of Surgery: NA Diagnosis: R RC TENDONITIS Assessment: Pt IS 58 YO F REFERRED TO PT FROM ORTHO (LIN[facility]) WITH R SHLDER ROTATOR CUFF TENDONITIS. Pt REPORTS L SHLDER ISSUES SINCE 2021 WHEN SHE FELL AND FRACTURED HER RADIAL HEAD. HAD CORTISONE INJECTION WITH TEMPORARY RELIEF AND IS USING IBUPROFEN WHICH HELPS A LITTLE. PRESENTS TO PT WITH LIMITED SHLDER ROM AND STRENGTH WITH POOR POSTURE. SHOULD BENEFIT FROM PT TO ADDRESS THESE ISSUES Frequency and Duration: The patient will be seen 2X/WK X 6 WKS Short Term Goals: 1. INCREASED POSTURE AWARENESS AND AWARENESS SHOULDER CARE 2. INCREASED L SHLDER FLEX AND ER 10 DEGREES EA Group Home Goals: 1. I HEP WITH DC EX PLAN 2. DECREASED L SHLDER PAIN AT LEAST 50% WITH ADLS Treatment Plan: Modalities to reduce pain, spasms and effusion. Manual therapy to restore motion and function. Therapeutic exercise to improve strength and flexibility. Neuromuscular re-education for posture and balance. Therapeutic activities to return to functional activities of daily living. Electronically signed by: SHENG LITTLE PT Please sign and return to therapist. Thank you for your referral.
--- NOTE | 2024-01-23 14:02 | MHC.PT.DC ---
[facility] [place] Office [place] Office [place] Office [address] [phone] F: [phone] F: [phone] F: [phone] F: [phone] Physical Therapy Discharge Report Diagnosis: R RC TENDONITIS Date of Surgery: NA Date of Evaluation: 10/23/23 Date of Discharge: 01/23/24 Treatments to Date: 8 Cancellations to Date: No Shows to Date: Discharge Status: Improved Function Independent with HEP Patient Elected to Stop Discharge Summary: PER ASSESSMENT FROM LAST SESSION ON 11/20/23:BETTER OVERALL. HAS ONE MORE APPT. REV GOALS FOR PROBABLE DC NEXT SESSION. (Pt DID NOT SCHEDULE FURTHER VISITS..?) Electronically signed by: SHENG LITTLE PT Please sign and return to therapist. Thank you for your referral.
== END 2024-01-23 14:03 | disposition home or self-care (01) ==
LOC: HO.PT 11:00
PROVIDERS: PCP Internal Medicine; Visit Provider Physician Assistant
DX: M75.81 Other shoulder lesions, right shoulder (principal)
CPT/HCPCS: 97014; 97110; 97140; 97161

== ENCOUNTER 2024-02-01 07:21 | Outpatient (REF) | payer OTHER, SELFPAY ==
[2024-02-01 07:32] LABS: MANUAL DIFF FLAG NO
[2024-02-01 07:48] LABS: Basophils Percent Auto 0.6 % (0-2); Eosinophils Absolute Auto 0.3 X10*3/uL (0.0-0.4); Eosinophils Percent Auto 4.1 % (0-4); Hematocrit 39.7 % (37.0-47.0); Hemoglobin 12.6 g/dl (12.0-16.0); Imm Gran Abs Auto 0.01 X10*3/uL (0.00-0.03); Imm Gran Pct Auto 0.2 % (0.0-0.4); Lymphocytes Absolute Auto 2.3 X10*3/uL (1.2-4.9); Lymphocytes Percent Auto 35.8 % (20-40); Mean Corpuscular HGB Conc 31.7 g/dl (31.0-35.0); Mean Corpuscular Hemoglobin 29.6 pg (27.0-33.0); Mean Corpuscular Volume 93.4 fL (80.0-98.0); Mean Platelet Volume 11.7 fL (9.4-12.3); Monocytes Absolute Auto 0.6 X10*3/uL (0.1-1.2); Monocytes Percent Auto 8.6 % (2-11); Neutrophils Absolute Auto 3.3 x10*3/uL (2.0-8.3); Neutrophils Percent Auto 50.7 % (45-73); Platelet Count 178 X10*3/uL (160-400); Red Blood Count 4.25 X10*6/uL (4.20-5.50); Red Cell Distribution Width 13.5 % (11.0-16.0); White Blood Count 6.4 X10*3/uL (4.8-10.8)
[2024-02-01 08:18] LABS: Alanine Aminotransferase 27 U/L (0-31); Albumin Level 4.4 g/dL (3.5-5.0); Alkaline Phosphatase 57 U/L (39-117); Anion Gap 14 (12-20); Aspartate Amino Transferase 21 U/L (5-31); Bilirubin Total 0.6 mg/dL (0.0-1.0); Blood Urea Nitrogen 15 mg/dL (9-16); Calcium 9.5 mg/dL (8.4-10.2); Carbon Dioxide 25 mmol/L (22-29); Chloride 109 mmol/L (96-108); Cholesterol 185 mg/dL (<200); Estimated Glomerular Filt Rate > 60; Glucose Fasting 98 mg/dL (60-99); HDL Cholesterol 55 mg/dL (>40); LDL Cholesterol Calculated 97 mg/dL (<100); Potassium 4.3 mmol/L (3.3-5.1); Sodium 144 mmol/L (135-145); Total Protein 7.5 g/dL (6.5-8.0); Triglycerides 165 mg/dL (<150)
[2024-02-01 08:20] LABS: Appearance Urine Clear; Color Urine Yellow; Glucose Urine UA Negative (Negative); Leukocyte Esterase Urine Negative (Negative); Nitrite Urine Negative (Negative); PH 5.5 (5.0-9.0); Urine Blood Negative (Negative); Urine Ketones Negative (Negative); Urine Protein Negative (Neg-Trace)
[2024-02-01 08:26] LABS: TSH reflex Free T4 2.16 uIU/mL (0.32-4.0)
[2024-02-01 08:36] LABS: Vitamin B12 196 pg/mL (200-900)
== END 2024-02-01 07:22 | disposition home or self-care (01) ==
LOC: HO.LAB 07:21
PROVIDERS: PCP Internal Medicine; Visit Provider Internal Medicine
DX: R30.0 Dysuria (principal); D64.9 Anemia, unspecified; E78.00 Pure hypercholesterolemia, unspecified; E55.9 Vitamin D deficiency, unspecified; E53.8 Deficiency of other specified B group vitamins
CPT/HCPCS: 36415; 80053; 80061; 81003; 82306; 82607; 82746; 84443; 85025

== ENCOUNTER 2024-02-05 10:46 | Outpatient (AMB) | payer OTHER, SELFPAY ==
--- NOTE | 2024-02-05 10:55 | A.OFFPC_ITS ---
Vital Signs 02/05/24 10:57 Height 5 ft 2 in Weight 169 lb 6 oz BMI 31.0 BP 120/60 Blood Pressure Location Lt brachial Position Sitting Pulse 86 Pulse Source Pulse Oximeter Pulse Oximetry (%) 98 Oxygen Delivery Method Room Air Intake Visit Reasons: 3 Month F/U Intake Note: Patient is here to follow up on HTN, Hypercholesterolemia. Celery Tier Required: No Vacuum System Tester: Not Required per policy Accompanied by: Self / Same As Patient Allergies naproxen Allergy (Verified 02/05/24 11:37) Vomiting Medication List - Last Reconciled 02/05/24 by Ruddy Lunsford MD docusate sodium (Colace) 200 mg (2 x 100 mg) PO BEDTIME ergocalciferol (vitamin D2) 1,250 mcg PO QWEEK ibuprofen 600 mg PO BID PRN 30 days lisinopril 30 mg PO DAILY loratadine 10 mg PO DAILY 90 days methylcellulose (laxative) (Citrucel) 500 mg PO BID mometasone 0.1% 1 appl topical DAILY PRN 15 days omeprazole 20 mg PO QAM polyethylene glycol 3350 17 grams PO DAILY 30 days rosuvastatin 5 mg PO DAILY 30 days tramadol 50 mg PO TID PRN 30 days Tobacco use date assessed: 02/05/24 Dental Screening Dental Screen Date: 10/15/23 HPI 3 Month F/U HPI Details Patient comes in today for her follow up visit States that she feels okay Feels that her ears are muffled often lately and her hearing has decreased; states that she often feels like her ears are blocked or there is water in her ears and has tried using some Q-tips recently with no relief; denies any ear pain She denies any headaches or dizziness Denies any chest pains, no SOB No nausea/vomiting, no abdominal pain No change in bowel habits noted Needs her Tramadol Rx refilled - states that the Rx helps keep her chronic pains manageable Had her follow up labs done a few days ago - to discuss her results She would also like to get tested again for her hepatitis B titers States that she got vaccinated many years ago but her partner was advised recently that he still has active hepatitis B so she wanted to see if she should get vaccinated again COUNTS INCLUDE 234 BEDS AT THE [facility] Medical History (Updated 02/05/24 @ 12:07 by Ruddy Lunsford MD) Vitamin B12 deficiency (non anemic) Facet arthritis of lumbar region Allergic rhinitis Overweight (BMI 25.0-29.9) COVID-19 vaccine series completed White coat syndrome with hypertension Post-operative nausea and vomiting Dermatitis Obesity (BMI 30-39.9) Insomnia Closed fracture of left ankle Hematuria GERD without esophagitis Elevated LFTs Vitamin D deficiency Cervical spondylosis Benign essential hypertension Pure hypercholesterolemia Kidney stones HTN (hypertension) Surgical History Hx of colonoscopy History of fracture of left ankle History of lithotripsy Family History Father Heart attack Mother Breast cancer Sister Breast cancer Diabetes Social History Housing: Apartment Are you a primary clinical manager home care to a significant other at home: No Do you presently have visiting nurse or other home services: No Alcohol intake: never Patient Tobacco Use Status: Never used Tobacco e-Cigarette/Vaping Use: Never Used Second Hand Smoke Exposure: No service: No Current occupational status: employed Current occupation: home care Cognitive needs: No Hearing needs: No Vision needs: No Female Reproductive History Menstrual Age of Menarche: 15 Questionnaire Thrive Questionnaire Date Thrive assessed: 10/15/23 KRISTYN-7 AMB Questionnaire KRISTYN-7 Date KRISTYN - 7 assessed: 10/15/23 Source: Developed by Drs. Danielito Chaudhari, Stephanie Dinh, Tung Avalos and colleagues, with an educational beck from [employer]. Review of Systems Const Denies chills, Denies fatigue, Denies fever(s) and Denies headache(s) ENT Denies dysphagia, Denies dizziness, Denies otalgia (but ears feel congested; also noticed decrease in her hearing lately), Denies headache(s), Reports neck pain (on and off), Denies odynophagia and Denies sore throat Card Denies chest pain, Denies irregular heart rhythm, Denies palpitations and Denies dyspnea Resp Denies cough, Denies dyspnea and Denies wheezing GI Denies abdominal pain, Denies constipation, Denies dysphagia, Denies heartburn, Denies diarrhea, Denies nausea, Denies odynophagia and Denies vomiting Denies urinary frequency, Denies dysuria and Denies urinary urgency Musc Reports back pain, Reports arthralgias (right shoulder ) and Reports neck pain (on and off) Skin/Breast Denies rash Neuro Denies dizziness, Denies headache(s) and Denies paresthesias Psych Denies anxiety and Denies depression Endo Denies fatigue and Denies palpitations Munir/Lymph Denies easy bruising Aller/Immun Denies wheezing Physical exam (Primary Care) Vital Signs: Last Vital Signs Pulse 86 02/05/24 10:57 BP 120/60 02/05/24 10:57 Pulse Ox 98 02/05/24 10:57 Oxygen Delivery Method Room Air 02/05/24 10:57 BMI result Body Mass Index 31.0 Tobacco/Smoking Status: Tobacco use Status Tobacco use date assessed 02/05/24 02/05/24 11:13 Patient Tobacco Use Status Never used Tobacco 02/05/24 11:13 e-Cigarette/Vaping Use Never Used 02/05/24 11:13 Thrive Assessment: Date of Thrive Assessment Date Thrive assessed 10/15/23 02/05/24 11:13 Const General: no acute distress and alert HENMT Ears: Abnormal EAC present cerumen impaction bilateral and unable to visualize TM (due to impacted cerumen) bilaterally Throat: Yes posterior oropharynx normal and Yes tonsils normal (no TP congestion) Neck Neck: Yes no lymphadenopathy and Yes supple Thyroid: Thyroid normal Resp Auscultation: clear to auscultation bilaterally, no rales and no wheezes Cardio Rate: regular rate Rhythm: regular rhythm Heart sounds: no murmurs GI Palpation (GI): Soft to palpation and nontender Auscultation: normal bowel sounds General: Yes no CVA tenderness Back/Spine/Pelvis Back: no CVA tenderness Cervical Spine: Cervical spine tenderness (mild) Thoracic/Lumbar Spine: paraspinal muscle tenderness bilaterally in the upper thoracic, in the mid thoracic, in the lower thoracic, in the upper lumbar, in the mid lumbar and in the lower lumbar and lumbar spinal tenderness (more on the right side) Skin Rashes: no rashes Extrem General: Yes no clubbing, cyanosis or edema Right upper extremity: shoulder/upper arm Details: tenderness Location: of the A-C joint and normal ROM Results Reviewed Results Reviewed: Laboratory Tests 02/01/24 02/01/24 07:30 07:31 WBC 6.4 Hgb 12.6 Hct 39.7 Plt Count 178 Sodium 144 Potassium 4.3 Creatinine 0.86 Estimated GFR > 60 Fasting Glucose 98 Calcium 9.5 AST 21 ALT 27 Triglycerides 165 H Cholesterol 185 LDL Cholesterol, Calc 97 HDL Cholesterol 55 Vitamin B12 196 L 25-OH Vitamin D Total 30.0 L TSH 2.16 Ur Specific [place] 1.020 Urine Protein Negative Urine Glucose (UA) Negative Urine Blood Negative Urine Nitrite Negative Ur Leukocyte Esterase Negative Assessment and Plan Assessment & Plan (1) Pure hypercholesterolemia: Code(s): E78.00 - Pure hypercholesterolemia, unspecified Plan: Results of her labs done a few days ago reviewed and discussed with patient - her serum triglyceride level has increased again slightly from previous but all of her other cholesterol numbers have improved from before Reinforced low cholesterol diet Continue Rosuvastatin 5 mg QD - is tolerating Rx with no issues She was on Atorvastatin 10 mg QD in the past but was experiencing increased back pain while she was on the Rx Will recheck her labs and fasting lipids in 3 months for follow up (2) Benign essential hypertension: Code(s): I10 - Essential (primary) hypertension Plan: Reinforced low sodium diet - goal is systolic BP of at least 120 to 130 mm or less Continue Lisinopril 30 mg QD (3) Elevated LFTs: Code(s): R79.89 - Other specified abnormal findings of blood chemistry Plan: Resolved; her LFTs have remained normal on her recent labs - was most likely related to her weight and cholesterol level Will continue to monitor her LFTs regularly (4) Cervical spondylosis: Code(s): M47.812 - Spondylosis without myelopathy or radiculopathy, cervical region Plan: Continue Ibuprofen 600 mg TID with food PRN, Tizanidine 4 mg TID PRN and Tramadol 50 mg TID PRN (5) Facet arthritis of lumbar region: Code(s): M47.816 - Spondylosis without myelopathy or radiculopathy, lumbar region Plan: Mostly over the right lower back - pain/symptoms are due to lumbar spine DDD and facet arthritis Lumbar spine x-rays done back in 2012 at [facility] were normal but repeat lumbar spine x-rays done in 2021 revealed (+) mild disc height loss at L5-S1 as well as mild L5-S1 facet arthropathy She was referred to physical therapy but because of her elbow injury, she was never able to start her PT Reinforced activity and weight-lifting restrictions States that she has Ibuprofen and Tramadol to take when needed for pain - Tramadol Rx refilled per request (6) Closed fracture of head of right radius with routine healing: Code(s): S52.121D - Displaced fracture of head of right radius, subsequent encounter for closed fracture with routine healing Qualifiers: Fracture alignment: nondisplaced Qualified Code(s): S52.124D - Nondis placed fracture of head of right radius, subsequent encounter for closed fracture with routine healing Plan: States that her elbow symptoms/pain have improved and resolved at this time Fracture of her right radial head was non-displaced and patient did not require any surgical intervention S/P physical therapy with some improvement although pain still recurs at times, especially with increased activity Follow up with orthopedics as scheduled or as needed (7) Right shoulder pain: Code(s): M25.511 - Pain in right shoulder Qualifiers: Chronicity: unspecified Qualified Code(s): M25.511 - Pain in right shoulder Plan: X-rays of the right shoulder done a few months ago came out normal She was advised that this may be related to her previous Hx of radial head fracture Follow up with orthopedics as scheduled (8) GERD without esophagitis: Code(s): K21.9 - Gastro-esophageal reflux disease without esophagitis Plan: Dietary restrictions reinforced Continue Famotidine 40 mg Q HS PRN and Omeprazole 20 mg QD (9) Vitamin D deficiency: Code(s): E55.9 - Vitamin D deficiency, unspecified Plan: Continue Vitamin D2 58855 units once a week Reassured that her BMD (index) done in June 2022 came back normal - will recheck in 3 years (2024) for follow up (10) Vitamin B12 deficiency (non anemic): Code(s): E53.8 - Deficiency of other specified B group vitamins Plan: Patient is advised that her B12 level is low on her recent labs Will start her on Vitamin B12 tablets 1000 mcg QD Will check her MMA level in 3 months for further evaluation (11) Allergic rhinitis: Code(s): J30.9 - Allergic rhinitis, unspecified Qualifiers: Allergic rhinitis trigger: unspecified Allergic rhinitis seasonality: unspecified Qualified Code(s): J30.9 - Allergic rhinitis, unspecified Plan: Continue Loratadine 10 mg QD PRN If symptoms are not adequately controlled on oral antihistamine alone, can add Fluticasone nasal spray QD PRN (12) Dermatitis: Code(s): L30.9 - Dermatitis, unspecified Plan: Continue Mometasone 0.1% cream QD PRN (13) Impacted cerumen of both ears: Code(s): H61.23 - Impacted cerumen, bilateral Plan: Will start patient on Debrox ear drops QD x 7 days Have instructed her to also start irrigating her ears while in the shower to help clear out her ear canals She is advised to call if she does not experience any significant improvement of her ear symptoms in a couple of weeks - may need to have her ears irrigated in the office then (14) Insomnia: Code(s): G47.00 - Insomnia, unspecified Qualifiers: Insomnia type: primary Qualified Code(s): F51.01 - Primary insomnia Plan: Sleep hygiene reinforced Continue Trazodone 50 mg 1/2 to 1 tablet Q HS PRN (15) Overweight (BMI 25.0-29.9): Code(s): E66.3 - Overweight Plan: Reinforced diet/exercise as tolerated/lose weight (16) Exposure to hepatitis B: Code(s): Z20.5 - Contact with and (suspected) exposure to viral hepatitis Plan: Per request, will have her get rechecked for her hepatitis B and C titers NERY Plan Follow up in 3 months Orders: Orders Hepatitis B,C Profile Today Z20.2 - Contact with and (suspected) exposure to infections with a predominantly sexual mode of transmission Complete Blood Count Auto Diff 3 Months D64.9 - Anemia, unspecified Lipid Panel 3 Months E78.00 - Pure hypercholesterolemia, unspecified Vitamin D 25-OH Total 3 Months E55.9 - Vitamin D deficiency, unspecified Methylmalonic Acid 3 Months E53.8 - Deficiency of other specified B group vitamins Comprehensive [place]. Panel Fast 3 Months E78.00 - Pure hypercholesterolemia, unspecified Vitamin B12 and Folate 3 Months E53.8 - Deficiency of other specified B group vitamins UA CC w/rflx Micro + Cult 3 Months R30.0 - Dysuria Medications: New cyanocobalamin (vitamin B-12) 1,000 mcg PO DAILY 90 days 90 tabs 3RF carbamide peroxide 6.5% (Debrox) 5 drps otic (ears) DAILY 7 days 15 mL 0RF Refilled tramadol 50 mg PO TID 30 days PRN 90 tabs 0RF pain Coding Level of Care Code Est Pt Level 4 (00496) Diagnoses Pure hypercholesterolemia E78.00 Benign essential hypertension I10 Elevated LFTs R79.89 Cervical spondylosis M47.812 Facet arthritis of lumbar region M47.816 Closed nondisplaced fracture of head of right radius with routine healing, subsequent encounter S52.124D Fracture alignment: nondisplaced Right shoulder pain, unspecified chronicity M25.511 Chronicity: unspecified GERD without esophagitis K21.9 Vitamin D deficiency E55.9 Vitamin B12 deficiency (non anemic) E53.8 Allergic rhinitis, unspecified seasonality, unspecified trigger J30.9 Allergic rhinitis trigger: unspecified Allergic rhinitis seasonality: unspecified Dermatitis L30.9 Impacted cerumen of both ears H61.23 Primary insomnia F51.01 Insomnia type: primary Overweight (BMI 25.0-29.9) E66.3 Exposure to hepatitis B Z20.5
[2024-02-05 10:57] VITALS: BP 120/60; PULSE 86; O2SAT 98; BMI 31.0
== END 2024-02-05 11:52 | disposition home or self-care (01) ==
PROVIDERS: PCP Internal Medicine; Visit Provider Internal Medicine
DX: E78.00 Pure hypercholesterolemia, unspecified (principal); I10 Essential (primary) hypertension; R79.89 Other specified abnormal findings of blood chemistry; M47.812 Spondylosis without myelopathy or radiculopathy, cervical region; M47.816 Spondylosis without myelopathy or radiculopathy, lumbar region; S52.124D Nondisplaced fracture of head of right radius, subsequent encounter for closed fracture with routine healing; M25.511 Pain in right shoulder; K21.9 Gastro-esophageal reflux disease without esophagitis; E55.9 Vitamin D deficiency, unspecified; E53.8 Deficiency of other specified B group vitamins; J30.9 Allergic rhinitis, unspecified; L30.9 Dermatitis, unspecified; H61.23 Impacted cerumen, bilateral; F51.01 Primary insomnia; E66.3 Overweight; Z20.5 Contact with and (suspected) exposure to viral hepatitis
CPT/HCPCS: 99214

== ENCOUNTER 2024-02-05 11:59 | Outpatient (REF) | payer OTHER, SELFPAY ==
[2024-02-05 15:04] LABS: HBS Num1 24.31 mIU/mL (0-7.99); HBc Num1 0.13 S/CO (0.00-0.79); HBsAGNum1 0.31 S/CO (0.00-0.99); Hepatitis B Core Antibody Nonreactive (Nonreactive); Hepatitis B Surface Antigen Negative (Negative); ~HepC Num1 0.05 S/CO (0.00-0.79); ~Hepatitis B Surface Antibody REACTIVE (Nonreactive); ~Hepatitis C Antibody Nonreactive (Nonreactive)
== END 2024-02-05 12:00 | disposition home or self-care (01) ==
LOC: HO.LAB 11:59
PROVIDERS: PCP Internal Medicine; Visit Provider Internal Medicine
DX: Z20.2 Contact with and (suspected) exposure to infections with a predominantly sexual mode of transmission (principal)
CPT/HCPCS: 36415; 86704; 86706; 86803; 87340

== ENCOUNTER 2024-04-17 09:59 | Outpatient (REF) | payer OTHER, SELFPAY ==
--- NOTE | ~2024-04-17 | MM_ITS ---
EXAMINATION: MM SCREENING DIGITAL BREAST TOMOSYNTHESIS, BILATERAL CLINICAL INFORMATION: Screening. Asymptomatic. COMPARISON: Mammography: Comparison is made with available priors TECHNIQUE: Digital breast mammography with tomosynthesis is performed in both the craniocaudal and mediolateral oblique views along with computer-aided detection (CAD). FINDINGS: There are scattered areas of fibroglandular density (ACR BI-RADS breast composition Category b). There are no significant masses, abnormal calcifications, or other abnormalities. MM/MM tomosynthesis screening BI IMPRESSION: No mammographic evidence of malignancy. ASSESSMENT: BI-RADS BI-RADS 1 - Negative RECOMMENDATION: Routine annual mammography screening. 1 year F/U This examination should not preclude the clinical evaluation of a suspicious palpable abnormality. This patient's information was entered into a reminder system with a target due date for their next mammogram. Electronically signed by: Azra Zabala DO 04/30/2024 07:47 PM EDT
== END 2024-04-17 10:00 | disposition home or self-care (01) ==
LOC: HO.MAMMO 09:59
PROVIDERS: PCP Internal Medicine; Visit Provider Internal Medicine
DX: Z12.31 Encounter for screening mammogram for malignant neoplasm of breast (principal)
CPT/HCPCS: 77063; 77067

== ENCOUNTER → 2024-04-17 10:15 | Outpatient (BNV) | payer OTHER, SELFPAY | PROVIDERS: PCP Internal Medicine; Visit Provider Internal Medicine | DX: Z12.31 Encounter for screening mammogram for malignant neoplasm of breast (principal) | CPT/HCPCS: 77063; 77067 ==

== ENCOUNTER 2024-05-30 08:11 | Outpatient (REF) | payer OTHER, SELFPAY ==
[2024-05-30 08:33] LABS: MANUAL DIFF FLAG NO
[2024-05-30 08:53] LABS: Basophils Percent Auto 0.7 % (0-2); Eosinophils Absolute Auto 0.2 X10*3/uL (0.0-0.4); Eosinophils Percent Auto 4.1 % (0-4); Hematocrit 39.6 % (37.0-47.0); Hemoglobin 12.6 g/dl (12.0-16.0); Imm Gran Abs Auto 0.02 X10*3/uL (0.00-0.03); Imm Gran Pct Auto 0.4 % (0.0-0.4); Lymphocytes Percent Auto 34.6 % (20-40); Mean Corpuscular HGB Conc 31.8 g/dl (31.0-35.0); Mean Corpuscular Hemoglobin 29.4 pg (27.0-33.0); Mean Corpuscular Volume 92.5 fL (80.0-98.0); Mean Platelet Volume 11.8 fL (9.4-12.3); Monocytes Absolute Auto 0.5 X10*3/uL (0.1-1.2); Monocytes Percent Auto 8.8 % (2-11); Neutrophils Absolute Auto 2.9 x10*3/uL (2.0-8.3); Neutrophils Percent Auto 51.4 % (45-73); Platelet Count 199 X10*3/uL (160-400); Red Blood Count 4.28 X10*6/uL (4.20-5.50); Red Cell Distribution Width 13.8 % (11.0-16.0); White Blood Count 5.7 X10*3/uL (4.8-10.8)
[2024-05-30 08:57] LABS: Appearance Urine Clear; Color Urine Yellow; Glucose Urine UA Negative (Negative); Leukocyte Esterase Urine Small (1+) (Negative); Nitrite Urine Negative (Negative); Specific Gravity - Urine 1.015 (1.005-1.025); UMIC TRIGGER UACC YES; Urine Blood Trace (Negative); Urine Ketones Negative (Negative); Urine Protein Negative (Neg-Trace)
[2024-05-30 09:03] LABS: Bacteria Urine None Seen (None Seen); Hyaline Casts Urine 0-2 /LPF (0-2); RBC Urine 0-2 /HPF (0-2); UACC Culture Trigger YES
[2024-05-30 09:27] LABS: Alanine Aminotransferase 43 U/L (0-31); Albumin Level 4.4 g/dL (3.5-5.0); Alkaline Phosphatase 57 U/L (39-117); Anion Gap 12 (12-20); Aspartate Amino Transferase 31 U/L (5-31); Bilirubin Total 0.6 mg/dL (0.0-1.0); Blood Urea Nitrogen 15 mg/dL (9-16); Calcium 9.3 mg/dL (8.4-10.2); Carbon Dioxide 28 mmol/L (22-29); Chloride 106 mmol/L (96-108); Cholesterol 200 mg/dL (<200); Estimated Glomerular Filt Rate > 60; Glucose Fasting 102 mg/dL (60-99); HDL Cholesterol 58 mg/dL (>40); LDL Cholesterol Calculated 104 mg/dL (<100); Potassium 4.7 mmol/L (3.3-5.1); Sodium 141 mmol/L (135-145); Total Protein 7.3 g/dL (6.5-8.0); Triglycerides 194 mg/dL (<150)
[2024-05-30 09:37] LABS: Vitamin D 25-OH Total 32.6 ng/mL (>30)
[2024-05-30 09:49] LABS: Folate 14.4 ng/mL (> or = 4.0); Vitamin B12 434 pg/mL (200-900)
[2024-06-03 22:38] LABS: Methylmalonic Acid 135 nmol/L (55-335)
== END 2024-05-30 08:12 | disposition home or self-care (01) ==
LOC: HO.LAB 08:11
PROVIDERS: PCP Internal Medicine; Visit Provider Internal Medicine
DX: E78.00 Pure hypercholesterolemia, unspecified (principal); D64.9 Anemia, unspecified; E55.9 Vitamin D deficiency, unspecified; E53.8 Deficiency of other specified B group vitamins; R30.0 Dysuria; R82.79 Other abnormal findings on microbiological examination of urine
CPT/HCPCS: 36415; 80053; 80061; 81001; 82306; 82607; 82746; 83921; 85025; 87086; 87147

== ENCOUNTER 2024-06-04 10:20 | Outpatient (AMB) | payer OTHER, SELFPAY ==
[2024-06-04 10:23] VITALS: BP 136/88; PULSE 83; O2SAT 98; BMI 31.8
--- NOTE | 2024-06-04 10:23 | A.OFFPC_ITS ---
Vital Signs 06/04/24 10:23 Height 5 ft 2 in Weight 174 lb BMI 31.8 BP 136/88 Blood Pressure Location Lt brachial Position Sitting Pulse 83 Pulse Source Pulse Oximeter Pulse Oximetry (%) 98 Oxygen Delivery Method Room Air Intake Visit Reasons: 3mth f/u Ict Business Development Manager Required: No Accompanied by: Self / Same As Patient Allergies naproxen Allergy (Verified 06/04/24 11:10) Vomiting Medication List - Last Reconciled 06/04/24 by Ruddy Lunsford MD carbamide peroxide 6.5% (Debrox) 5 drps otic (ears) DAILY 7 days cyanocobalamin (vitamin B-12) 1,000 mcg PO DAILY 90 days docusate sodium (Colace) 200 mg (2 x 100 mg) PO BEDTIME ergocalciferol (vitamin D2) 1,250 mcg PO QWEEK ibuprofen 600 mg PO BID PRN 30 days lisinopril 30 mg PO DAILY loratadine 10 mg PO DAILY 90 days methylcellulose (laxative) (Citrucel) 500 mg PO BID mometasone 0.1% 1 appl topical DAILY PRN 15 days omeprazole 20 mg PO QAM polyethylene glycol 3350 17 grams PO DAILY 30 days rosuvastatin 5 mg PO DAILY 90 days tramadol 50 mg PO TID PRN 30 days Tobacco use date assessed: 06/04/24 Dental Screening Dental Screen Date: 06/04/24 Did you have a dental visit in the last 12 months?: No Did you have a dental problem in the last 6 months where you did not have access to dental care?: No Was dental information given to patient?: Patient has dentist HPI 3mth f/u HPI Details Patient comes in today for her follow up visit States that she feels okay She denies any headaches or dizziness Denies any chest pains, no SOB No nausea/vomiting, no abdominal pain No change in bowel habits noted She had her follow up labs done a few days ago - to discuss her results Would also like to get her flu shot today [facility] Medical History Vitamin B12 deficiency (non anemic) Facet arthritis of lumbar region Allergic rhinitis Overweight (BMI 25.0-29.9) COVID-19 vaccine series completed White coat syndrome with hypertension Post-operative nausea and vomiting Dermatitis Obesity (BMI 30-39.9) Insomnia Closed fracture of left ankle Hematuria GERD without esophagitis Elevated LFTs Vitamin D deficiency Cervical spondylosis Benign essential hypertension Pure hypercholesterolemia Kidney stones HTN (hypertension) Surgical History Hx of colonoscopy History of fracture of left ankle History of lithotripsy Family History Father Heart attack Mother Breast cancer Sister Breast cancer Diabetes Social History Housing: Apartment Are you a primary resident care aid to a significant other at home: No Do you presently have visiting nurse or other home services: No Alcohol intake: never Patient Tobacco Use Status: Never used Tobacco e-Cigarette/Vaping Use: Never Used Second Hand Smoke Exposure: No service: No Current occupational status: employed Current occupation: home care Cognitive needs: No Hearing needs: No Vision needs: No Female Reproductive History Menstrual Age of Menarche: 15 Questionnaire PHQ-9 Over the last 2 weeks, how often have you been bothered by any of the following problems? 1. Little interest or pleasure in doing things: not at all 2. Feeling down, depressed, or hopeless: not at all 3. Trouble falling or staying asleep, or sleeping too much: not at all 4. Feeling tired or having little energy: not at all 5. Poor appetite or overeating: not at all 6. Feeling bad about yourself - or that you are a failure or have let yourself or your family down: not at all 7. Trouble concentrating on things, such as reading the newspaper or watching television: not at all 8. Moving or speaking so slowly that other people could have noticed. Or the opposite - being so fidgety or restless that you have been moving around a lot more than usual: not at all 9. Thoughts that you would be better off or of hurting yourself in some way: not at all Total score: 0 Depression Screening Interpretation: Negative Depression Screening Done: Yes 63262 - PHQ-9 Billing: Yes Source: Developed by Drs. Danielito Chaudhari, Stephanie Dinh, Tung Avalos and colleagues, with an educational beck from [employer]. Thrive Questionnaire Date Thrive assessed: 06/04/24 I am a: Patient What is your living situation today?: I have a steady place to live Within the past 12 months, did the food you bought not last and you didn't have the money to get more?: Never true Within the past 12 months, did you worry whether your food would run out before you got money to buy more?: Never true Do you have trouble paying for medicines?: No Do you have trouble getting transportation to medical appointments?: No Do you have trouble paying your heating and electricity bill?: No Do you have trouble taking care of your child, family member or friend?: No Do you have trouble with day-to-day activities such as bathing, preparing meals, shopping, managing finances, etc.?: No Are you currently unemployed and looking for a job?: No Are you interested in more education?: No Please select the resources that you would like help with: None Currently or been in a relationship where the following occur: No concerns reported THRIVE Score: 0 AUDIT C Alcohol Use Questionnaire (AUDIT-C) 1. How often do you have a drink containing alcohol?: Never 3. How often do you have six or more drinks on one occasion?: Never Total Score: 0 Score Reviewed/Action Taken: Yes KRISTYN-7 AMB Questionnaire KRISTYN-7 Date KRISTYN - 7 assessed: 06/04/24 Feeling nervous, anxious, or on edge: 0 = Not at all Not being able to stop or control worryin = Not at all Worrying too much about different things: 0 = Not at all Trouble relaxin = Not at all Being so restless that it is hard to sit still: 0 = Not at all Becoming easily annoyed or irritable: 0 = Not at all Feeling afraid as if something awful might happen: 0 = Not at all Total KRISTYN-7 score (0-4 normal; 5-9 mild; 10-14 moderate; 15-21 severe): 0 Source: Developed by Drs. Danielito Chaudhari, Stephanie Dinh, Tung Avalos and colleagues, with an educational beck from [employer]. Review of Systems Const Denies chills, Denies fatigue, Denies fever(s) and Denies headache(s) ENT Denies dysphagia, Denies dizziness, Denies otalgia, Denies headache(s), Reports neck pain (on and off), Denies odynophagia and Denies sore throat Card Denies chest pain, Denies irregular heart rhythm, Denies palpitations and Denies dyspnea Resp Denies chest congestion, Denies cough and Denies dyspnea GI Denies abdominal pain, Denies constipation, Denies dysphagia, Denies heartburn, Denies diarrhea, Denies nausea, Denies odynophagia and Denies vomiting Denies urinary frequency, Denies dysuria and Denies urinary urgency Musc Reports back pain, Reports arthralgias (right shoulder ) and Reports neck pain (on and off) Skin/Breast Denies rash Neuro Denies dizziness, Denies headache(s) and Denies paresthesias Psych Denies anxiety and Denies depression Endo Denies fatigue and Denies palpitations Munir/Lymph Denies easy bruising Physical exam (Primary Care) Vital Signs: Last Vital Signs Pulse 83 06/04/24 10:23 BP 136/88 06/04/24 10:23 Pulse Ox 98 06/04/24 10:23 Oxygen Delivery Method Room Air 06/04/24 10:23 BMI result Body Mass Index 31.8 Tobacco/Smoking Status: Tobacco use Status Tobacco use date assessed 06/04/24 06/04/24 10:24 Patient Tobacco Use Status Never used Tobacco 06/04/24 10:24 e-Cigarette/Vaping Use Never Used 06/04/24 10:24 PHQ-9: PHQ-9 Score PHQ-9: Total score 0 06/04/24 11:11 Depression Screening Interpretation: Negative Thrive Assessment: Date of Thrive Assessment Date Thrive assessed 06/04/24 06/04/24 10:24 Currently or been in a relationship where the following occur: No concerns reported Const General: no acute distress and alert HENMT Ears: TM's normal bilaterally and EAC's normal Throat: Yes posterior oropharynx normal and Yes tonsils normal (no TP congestion) Neck Neck: Yes no lymphadenopathy and Yes supple Thyroid: Thyroid normal Resp Auscultation: clear to auscultation bilaterally, no rales and no wheezes Cardio Rate: regular rate Rhythm: regular rhythm Heart sounds: no murmurs GI Palpation (GI): Soft to palpation and nontender Auscultation: normal bowel sounds General: Yes no CVA tenderness Back/Spine/Pelvis Back: no CVA tenderness Cervical Spine: Cervical spine tenderness (mild) Thoracic/Lumbar Spine: paraspinal muscle tenderness bilaterally in the upper thoracic, in the mid thoracic, in the lower thoracic, in the upper lumbar, in the mid lumbar and in the lower lumbar and lumbar spinal tenderness (more on the right side) Skin Rashes: no rashes Extrem General: Yes no clubbing, cyanosis or edema Right upper extremity: shoulder/upper arm Details: tenderness Location: of the A-C joint and normal ROM Office Procedures Flu Questionnaire Does the patient have a severe egg allergy?: No Does the patient have severe life threatening allergies?: No Does the patient have a fever or illness today?: No Has the patient ever had Guillain-[place] Syndrome?: No Has the patient ever had any past reaction to a flu shot?: No Immunizations Fluarix Triv 0082-0555 (PF) 45 mcg (15 mcg x 3)/0.5 mL IM syringe Performing Provider: Ruddy Lunsford MD [facility] Administered by: DANUTA Durant on 06/04/24 10:40 Dose Route Admin Location Dispensed Lot Number Expiration Date [facility] Director Career Services 0.5 mL IM Left Deltoid 0.5 mL [id number] 02/02/25 [id number] Metafused VIS Given Date VIS Provided VIS Publication Date 06/04/24 Single Vaccine 21 Eligibility Eligibility Date Funding Source Not [facility] Eligible 06/04/24 Private Results Reviewed Results Reviewed: Laboratory Tests 05/30/24 05/30/24 08:31 08:32 WBC 5.7 Hgb 12.6 Hct 39.6 Plt Count 199 Sodium 141 Potassium 4.7 Creatinine 0.85 Estimated GFR > 60 Fasting Glucose 102 H Calcium 9.3 AST 31 ALT 43 H Triglycerides 194 H Cholesterol 200 H LDL Cholesterol, Calc 104 H HDL Cholesterol 58 Vitamin B12 434 Methylmalonic Acid 135 25-OH Vitamin D Total 32.6 Ur Specific Zeigler 1.015 Urine Protein Negative Urine Glucose (UA) Negative Urine Nitrite Negative Ur Leukocyte Esterase Small (1+) H Coding Level of Care Code Est Pt Level 4 (44315) Diagnoses Pure hypercholesterolemia E78.00 Benign essential hypertension I10 Elevated LFTs R79.89 Cervical spondylosis M47.812 Facet arthritis of lumbar region M47.816 Vitamin D deficiency E55.9 GERD without esophagitis K21.9 Vitamin B12 deficiency (non anemic) E53.8 Allergic rhinitis, unspecified seasonality, unspecified trigger J30.9 Allergic rhinitis trigger: unspecified Allergic rhinitis seasonality: unspecified Dermatitis L30.9 Primary insomnia F51.01 Insomnia type: primary Overweight (BMI 25.0-29.9) E66.3 Assessment & Plan Assessment & Plan (1) Pure hypercholesterolemia: Code(s): E78.00 - Pure hypercholesterolemia, unspecified Category: Medical Plan: Results of her labs done a few days ago reviewed and discussed with patient Reinforced low cholesterol diet Continue Rosuvastatin 5 mg QD - is tolerating Rx with no issues She experienced increased back pain while on Atorvastatin 10 mg in the past Will recheck her labs and fasting lipids in 3 months for follow up (2) Benign essential hypertension: Code(s): I10 - Essential (primary) hypertension Category: Medical Plan: Reinforced low sodium diet - goal is systolic BP of at least 120 to 130 mm or less Continue Lisinopril 30 mg QD (3) Elevated LFTs: Code(s): R79.89 - Other specified abnormal findings of blood chemistry Category: Medical Plan: Resolved; her LFTs have remained normal on her recent labs - was most likely related to her weight and cholesterol level Will continue to monitor her LFTs regularly (4) Cervical spondylosis: Code(s): M47.812 - Spondylosis without myelopathy or radiculopathy, cervical region Category: Medical Plan: Continue Ibuprofen 600 mg TID with food PRN, Tizanidine 4 mg TID PRN and Tramadol 50 mg TID PRN (5) Facet arthritis of lumbar region: Code(s): M47.816 - Spondylosis without myelopathy or radiculopathy, lumbar region Category: Medical Plan: Mostly over the right lower back - pain/symptoms are due to lumbar spine DDD and facet arthritis Lumbar spine x-[place] done back in 2012 at [facility] [place] normal but repeat lumbar spine x-rays done in 2021 revealed (+) mild disc height loss at L5-S1 as well as mild L5-S1 facet arthropathy She was referred to physical therapy but because of her elbow injury, she was never able to start her PT Reinforced activity and weight-lifting restrictions States that she has Ibuprofen and Tramadol to take when needed for pain (6) Vitamin D deficiency: Code(s): E55.9 - Vitamin D deficiency, unspecified Category: Medical Plan: Continue Vitamin D2 22260 units once a week Reassured that her BMD (index) done in June 2022 came back normal - will recheck in 3 years (2024) for follow up (7) GERD without esophagitis: Code(s): K21.9 - Gastro-esophageal reflux disease without esophagitis Category: Medical Plan: Dietary restrictions reinforced Continue Famotidine 40 mg Q HS PRN and Omeprazole 20 mg QD (8) Vitamin B12 deficiency (non anemic): Code(s): E53.8 - Deficiency of other specified B group vitamins Category: Medical Plan: Continue Vitamin B12 tablets 1000 mcg QD MMA level checked a few days ago came back normal (9) Allergic rhinitis: Code(s): J30.9 - Allergic rhinitis, unspecified Category: Medical Qualifiers: Allergic rhinitis trigger: unspecified Allergic rhinitis seasonality: unspecified Qualified Code(s): J30.9 - Allergic rhinitis, unspecified Plan: Continue Loratadine 10 mg QD PRN If symptoms are not adequately controlled on oral antihistamine alone, can add Fluticasone nasal spray QD PRN (10) Dermatitis: Code(s): L30.9 - Dermatitis, unspecified Category: Medical Plan: Continue Mometasone 0.1% cream QD PRN (11) Insomnia: Code(s): G47.00 - Insomnia, unspecified Category: Medical Qualifiers: Insomnia type: primary Qualified Code(s): F51.01 - Primary insomnia Plan: Sleep hygiene reinforced Continue Trazodone 50 mg 1/2 to 1 tablet Q HS PRN (12) Overweight (BMI 25.0-29.9): Code(s): E66.3 - Overweight Category: Medical Plan: Reinforced diet/exercise as tolerated/lose weight Plan Follow up in 3 months Orders: Orders Complete Blood Count Auto Diff 3 Months D64.9 - Anemia, unspecified Vitamin D 25-OH Total 3 Months E55.9 - Vitamin D deficiency, unspecified Vitamin B12 and Folate 3 Months E53.8 - Deficiency of other specified B group vitamins UA CC w/rflx Micro + Cult 3 Months R30.0 - Dysuria Influenza [id number] Immunization 06/04/24 Z23 - Encounter for immunization Comprehensive [place]. Panel Fast 3 Months E78.00 - Pure hypercholesterolemia, unspecified Lipid Panel 3 Months E78.00 - Pure hypercholesterolemia, unspecified
== END 2024-06-04 11:22 | disposition home or self-care (01) ==
LOC: HO.HMCH 10:20
PROVIDERS: PCP Internal Medicine; Visit Provider Internal Medicine
DX: E78.00 Pure hypercholesterolemia, unspecified (principal); I10 Essential (primary) hypertension; M47.812 Spondylosis without myelopathy or radiculopathy, cervical region; M47.816 Spondylosis without myelopathy or radiculopathy, lumbar region; E55.9 Vitamin D deficiency, unspecified; K21.9 Gastro-esophageal reflux disease without esophagitis; E53.8 Deficiency of other specified B group vitamins; J30.9 Allergic rhinitis, unspecified; L30.9 Dermatitis, unspecified; F51.01 Primary insomnia; E66.3 Overweight

== ENCOUNTER → 2024-06-04 10:20 | Outpatient (BNVA) | payer OTHER, SELFPAY | PROVIDERS: PCP Internal Medicine; Visit Provider Internal Medicine | DX: Z23 Encounter for immunization (principal); E78.00 Pure hypercholesterolemia, unspecified; I10 Essential (primary) hypertension; R79.89 Other specified abnormal findings of blood chemistry; M47.812 Spondylosis without myelopathy or radiculopathy, cervical region; M47.816 Spondylosis without myelopathy or radiculopathy, lumbar region; E55.9 Vitamin D deficiency, unspecified; K21.9 Gastro-esophageal reflux disease without esophagitis; E53.8 Deficiency of other specified B group vitamins; J30.9 Allergic rhinitis, unspecified; L30.9 Dermatitis, unspecified; F51.01 Primary insomnia; E66.3 Overweight | CPT/HCPCS: 90471; 90656; 96127; 99212 ==

== ENCOUNTER 2024-09-19 07:58 | Outpatient (REF) | payer OTHER, SELFPAY ==
[2024-09-19 08:13] LABS: MANUAL DIFF FLAG NO
[2024-09-19 08:38] LABS: Basophils Percent Auto 0.5 % (0-2); Eosinophils Absolute Auto 0.2 X10*3/uL (0.0-0.4); Eosinophils Percent Auto 3.8 % (0-4); Hematocrit 39.8 % (37.0-47.0); Hemoglobin 12.5 g/dl (12.0-16.0); Imm Gran Abs Auto 0.02 X10*3/uL (0.00-0.03); Imm Gran Pct Auto 0.3 % (0.0-0.4); Lymphocytes Absolute Auto 2.2 X10*3/uL (1.2-4.9); Lymphocytes Percent Auto 37.1 % (20-40); Mean Corpuscular HGB Conc 31.4 g/dl (31.0-35.0); Mean Corpuscular Hemoglobin 28.9 pg (27.0-33.0); Mean Corpuscular Volume 92.1 fL (80.0-98.0); Mean Platelet Volume 11.9 fL (9.4-12.3); Monocytes Absolute Auto 0.5 X10*3/uL (0.1-1.2); Monocytes Percent Auto 8.9 % (2-11); Neutrophils Absolute Auto 2.9 x10*3/uL (2.0-8.3); Neutrophils Percent Auto 49.4 % (45-73); Platelet Count 213 X10*3/uL (160-400); Red Blood Count 4.32 X10*6/uL (4.20-5.50); Red Cell Distribution Width 13.8 % (11.0-16.0); White Blood Count 5.9 X10*3/uL (4.8-10.8)
[2024-09-19 08:40] LABS: Appearance Urine Clear; Color Urine Yellow; Glucose Urine UA Negative (Negative); Leukocyte Esterase Urine Moderate (2+) (Negative); Nitrite Urine Negative (Negative); Specific Gravity - Urine 1.015 (1.005-1.025); UMIC TRIGGER UACC YES; Urine Blood Trace (Negative); Urine Ketones Negative (Negative); Urine Protein Negative (Neg-Trace)
[2024-09-19 08:43] LABS: Bacteria Urine None Seen (None Seen); Hyaline Casts Urine 0-2 /LPF (0-2); RBC Urine 0-2 /HPF (0-2); UACC Culture Trigger YES
[2024-09-19 09:12] LABS: Alanine Aminotransferase 74 U/L (0-31); Albumin Level 4.4 g/dL (3.5-5.0); Alkaline Phosphatase 64 U/L (39-117); Anion Gap 12 (12-20); Aspartate Amino Transferase 178 U/L (5-31); Bilirubin Total 0.7 mg/dL (0.0-1.0); Blood Urea Nitrogen 13 mg/dL (9-16); Calcium 9.4 mg/dL (8.4-10.2); Carbon Dioxide 27 mmol/L (22-29); Chloride 107 mmol/L (96-108); Cholesterol 174 mg/dL (<200); Estimated Glomerular Filt Rate > 60; Glucose Fasting 97 mg/dL (60-99); HDL Cholesterol 59 mg/dL (>40); LDL Cholesterol Calculated 84 mg/dL (<100); Potassium 4.7 mmol/L (3.3-5.1); Sodium 141 mmol/L (135-145); Total Protein 7.6 g/dL (6.5-8.0); Triglycerides 157 mg/dL (<150)
[2024-09-19 09:27] LABS: Vitamin D 25-OH Total 36.2 ng/mL (>30)
[2024-09-19 09:43] LABS: Folate 11.7 ng/mL (> or = 4.0); Vitamin B12 415 pg/mL (200-900)
== END 2024-09-19 07:59 | disposition home or self-care (01) ==
LOC: HO.LAB 07:58
PROVIDERS: PCP Internal Medicine; Visit Provider Internal Medicine
DX: D64.9 Anemia, unspecified (principal); E78.00 Pure hypercholesterolemia, unspecified; E55.9 Vitamin D deficiency, unspecified; E53.8 Deficiency of other specified B group vitamins
CPT/HCPCS: 36415; 80053; 80061; 81001; 82306; 82607; 82746; 85025; 87086

== ENCOUNTER 2024-09-24 09:56 | Outpatient (AMB) | payer OTHER, SELFPAY ==
[2024-09-24 10:35] VITALS: BP 126/80; PULSE 87; O2SAT 97; BMI 31.6
--- NOTE | 2024-09-24 10:35 | MHC.PC.OV ---
Vital Signs 09/24/24 10:35 Height 5 ft 2 in Weight 173 lb BMI 31.6 BP 126/80 Blood Pressure Location Lt brachial Position Sitting Pulse 87 Pulse Source Pulse Oximeter Pulse Oximetry (%) 97 Oxygen Delivery Method Room Air Intake Visit Reasons: 3 Months f/u Glass Unloading Equipment Tender Required: No Accompanied by: Self / Same As Patient Allergies naproxen Allergy (Verified 09/24/24 11:11) Vomiting trazodone Adverse Reaction (Intermediate, Verified 09/24/24 11:21) headaches Medication List - Last Reconciled 09/24/24 by Ruddy Lunsford MD cyanocobalamin (vitamin B-12) 1,000 mcg PO DAILY 90 days docusate sodium (Colace) 200 mg (2 x 100 mg) PO BEDTIME ergocalciferol (vitamin D2) 1,250 mcg PO QWEEK ibuprofen 600 mg PO BID PRN 30 days lisinopril 30 mg PO DAILY loratadine 10 mg PO DAILY 90 days methylcellulose (laxative) (Citrucel) 500 mg PO BID mometasone 0.1% 1 appl topical DAILY PRN 15 days omeprazole 20 mg PO QAM polyethylene glycol 3350 17 grams PO DAILY 30 days rosuvastatin 5 mg PO DAILY 90 days tramadol 50 mg PO TID PRN 30 days Tobacco use date assessed: 09/24/24 Dental Screening Dental Screen Date: 09/24/24 HPI 3 Months f/u HPI Details Patient comes in today for her follow up visit States that she feels okay She denies any headaches or dizziness Denies any chest pains, no SOB No nausea/vomiting, no abdominal pain No change in bowel habits noted States that she is still having trouble sleeping at night - she has not been taking her Trazodone for a while now as she keeps getting headaches everytime she takes her Trazodone She had her follow up labs done a few days ago - to discuss her results [facility] Medical History Vitamin B12 deficiency (non anemic) Facet arthritis of lumbar region Allergic rhinitis Overweight (BMI 25.0-29.9) COVID-19 vaccine series completed White coat syndrome with hypertension Post-operative nausea and vomiting Dermatitis Obesity (BMI 30-39.9) Insomnia Closed fracture of left ankle Hematuria GERD without esophagitis Elevated LFTs Vitamin D deficiency Cervical spondylosis Benign essential hypertension Pure hypercholesterolemia Kidney stones HTN (hypertension) Surgical History Hx of colonoscopy History of fracture of left ankle History of lithotripsy Family History Father Heart attack Mother Breast cancer Sister Breast cancer Diabetes Social History Housing: Apartment Are you a primary child care assistant to a significant other at home: No Do you presently have visiting nurse or other home services: No Alcohol intake: never Patient Tobacco Use Status: Never used Tobacco e-Cigarette/Vaping Use: Never Used Second Hand Smoke Exposure: No service: No Current occupational status: employed Current occupation: home care Cognitive needs: No Hearing needs: No Vision needs: No Female Reproductive History Menstrual Age of Menarche: 15 Questionnaire PHQ-9 Over the last 2 weeks, how often have you been bothered by any of the following problems? 1. Little interest or pleasure in doing things: not at all 2. Feeling down, depressed, or hopeless: not at all 3. Trouble falling or staying asleep, or sleeping too much: not at all 4. Feeling tired or having little energy: not at all 5. Poor appetite or overeating: not at all 6. Feeling bad about yourself - or that you are a failure or have let yourself or your family down: not at all 7. Trouble concentrating on things, such as reading the newspaper or watching television: not at all 8. Moving or speaking so slowly that other people could have noticed. Or the opposite - being so fidgety or restless that you have been moving around a lot more than usual: not at all 9. Thoughts that you would be better off or of hurting yourself in some way: not at all Total score: 0 Depression Screening Interpretation: Negative Depression Screening Done: Yes 96095 - PHQ-9 Billing: Yes Source: Developed by Drs. Danielito Chaudhari, Stephanie Dinh, Tung Avalos and colleagues, with an educational beck from [employer]. Thrive Questionnaire Date Thrive assessed: 09/24/24 I am a: Patient What is your living situation today?: I have a steady place to live Within the past 12 months, did the food you bought not last and you didn't have the money to get more?: Never true Within the past 12 months, did you worry whether your food would run out before you got money to buy more?: Never true Do you have trouble paying for medicines?: No Do you have trouble getting transportation to medical appointments?: No Do you have trouble paying your heating and electricity bill?: No Do you have trouble taking care of your child, family member or friend?: No Do you have trouble with day-to-day activities such as bathing, preparing meals, shopping, managing finances, etc.?: No Are you currently unemployed and looking for a job?: No Are you interested in more education?: No Please select the resources that you would like help with: None Currently or been in a relationship where the following occur: No concerns reported THRIVE Score: 0 AUDIT C Alcohol Use Questionnaire (AUDIT-C) 1. How often do you have a drink containing alcohol?: Never 3. How often do you have six or more drinks on one occasion?: Never Total Score: 0 Score Reviewed/Action Taken: Yes KRISTYN-7 AMB Questionnaire KRISTYN-7 Date KRISTYN - 7 assessed: 09/24/24 Feeling nervous, anxious, or on edge: 0 = Not at all Not being able to stop or control worryin = Not at all Worrying too much about different things: 0 = Not at all Trouble relaxin = Not at all Being so restless that it is hard to sit still: 0 = Not at all Becoming easily annoyed or irritable: 0 = Not at all Feeling afraid as if something awful might happen: 0 = Not at all Total KRISTYN-7 score (0-4 normal; 5-9 mild; 10-14 moderate; 15-21 severe): 0 Source: Developed by Drs. Danielito Chaudhari, Stephanie Dinh, Tung Avalos and colleagues, with an educational beck from [employer]. Review of Systems Const Denies chills, Reports difficulty sleeping, Denies fatigue, Denies fever(s) and Denies headache(s) ENT Denies dysphagia, Denies dizziness, Denies otalgia, Denies headache(s), Reports neck pain (on and off), Denies odynophagia and Denies sore throat Card Denies chest pain, Denies irregular heart rhythm, Denies palpitations and Denies dyspnea Resp Denies chest congestion, Denies cough and Denies dyspnea GI Denies abdominal pain, Denies constipation, Denies dysphagia, Denies heartburn, Denies diarrhea, Denies nausea, Denies odynophagia and Denies vomiting Denies urinary frequency, Denies dysuria and Denies urinary urgency Musc Reports back pain, Reports arthralgias (right shoulder ) and Reports neck pain (on and off) Skin/Breast Denies rash Neuro Denies dizziness, Denies headache(s) and Denies paresthesias Psych Denies anxiety and Denies depression Endo Denies fatigue and Denies palpitations Munir/Lymph Denies easy bruising Physical exam (Primary Care) Vital Signs: Last Vital Signs Pulse 87 09/24/24 10:35 BP 126/80 09/24/24 10:35 Pulse Ox 97 09/24/24 10:35 Oxygen Delivery Method Room Air 09/24/24 10:35 BMI result Body Mass Index 31.6 Tobacco/Smoking Status: Tobacco use Status Tobacco use date assessed 09/24/24 09/24/24 10:43 Patient Tobacco Use Status Never used Tobacco 09/24/24 10:43 e-Cigarette/Vaping Use Never Used 09/24/24 10:43 PHQ-9: PHQ-9 Score PHQ-9: Total score 0 09/24/24 10:43 Depression Screening Interpretation: Negative Thrive Assessment: Date of Thrive Assessment Date Thrive assessed 09/24/24 09/24/24 10:43 Currently or been in a relationship where the following occur: No concerns reported Const General: no acute distress and alert HENMT Ears: TM's normal bilaterally and EAC's normal Throat: Yes posterior oropharynx normal and Yes tonsils normal (no TP congestion) Neck Neck: Yes supple and No lymphadenopathy Thyroid: Thyroid normal Resp Auscultation: clear to auscultation bilaterally, no rales and no wheezes Cardio Rate: regular rate Rhythm: regular rhythm Heart sounds: no murmurs GI Palpation (GI): Soft to palpation and nontender Auscultation: normal bowel sounds General: Yes no CVA tenderness Back/Spine/Pelvis Back: no CVA tenderness Cervical Spine: Cervical spine tenderness (mild) Thoracic/Lumbar Spine: paraspinal muscle tenderness bilaterally in the upper thoracic, in the mid thoracic, in the lower thoracic, in the upper lumbar, in the mid lumbar and in the lower lumbar and lumbar spinal tenderness (more on the right side) Skin Rashes: no rashes Extrem General: Yes no clubbing, cyanosis or edema Right upper extremity: shoulder/upper arm Details: tenderness Location: of the A-C joint and normal ROM Results Reviewed Results Reviewed: Laboratory Tests 02/01/24 09/19/24 09/19/24 07:31 08:07 08:12 WBC 5.9 Hgb 12.5 Hct 39.8 Plt Count 213 Sodium 141 Potassium 4.7 Creatinine 0.82 Estimated GFR > 60 Fasting Glucose 97 Calcium 9.4 AST 178 H ALT 74 H Triglycerides 157 H Cholesterol 174 LDL Cholesterol, Calc 84 HDL Cholesterol 59 25-OH Vitamin D Total 36.2 TSH 2.16 Ur Specific [place] 1.015 Urine Protein Negative Urine Glucose (UA) Negative Urine Blood Trace H Urine Nitrite Negative Ur Leukocyte Esterase Moderate (2+) H Coding Level of Care Code Est Pt Level 4 (61756) Diagnoses Pure hypercholesterolemia E78.00 Benign essential hypertension I10 Elevated LFTs R79.89 Cervical spondylosis M47.812 Facet arthritis of lumbar region M47.816 Vitamin D deficiency E55.9 GERD without esophagitis K21.9 Vitamin B12 deficiency (non anemic) E53.8 Allergic rhinitis, unspecified seasonality, unspecified trigger J30.9 Allergic rhinitis trigger: unspecified Allergic rhinitis seasonality: unspecified Dermatitis L30.9 Primary insomnia F51.01 Insomnia type: primary Overweight (BMI 25.0-29.9) E66.3 Additional Codes PHQ-9 - 22183 - PHQ-9 Billing: Yes ([id number]) Assessment & Plan Assessment & Plan (1) Pure hypercholesterolemia: Code(s): E78.00 - Pure hypercholesterolemia, unspecified Category: Medical Plan: Results of her labs done a few days ago reviewed and discussed with patient Reinforced low cholesterol diet Continue Rosuvastatin 5 mg QD - is tolerating Rx with no issues (she experienced increased back pain while on Atorvastatin 10 mg in the past) Will recheck her labs and fasting lipids again in 3 months for follow up (2) Benign essential hypertension: Code(s): I10 - Essential (primary) hypertension Category: Medical Plan: Reinforced low sodium diet - goal is systolic BP of at least 120 to 130 mm or less Continue Lisinopril 30 mg QD (3) Elevated LFTs: Code(s): R79.89 - Other specified abnormal findings of blood chemistry Category: Medical Plan: Her LFTs have increased again on her recent labs, especially her serum AST She had hepatitis testing back in February 2024, which came back negative Patient also reports NO acute GI symptoms lately, including abdominal pain Will send her for abdominal US NERY for further evaluation Will continue to monitor her LFTs regularly - discussed that if her LFTs remain high and all work ups come back negative, we may have to consider taking her off her Rosuvastatin (4) Cervical spondylosis: Code(s): M47.812 - Spondylosis without myelopathy or radiculopathy, cervical region Category: Medical Plan: Continue Ibuprofen 600 mg TID with food PRN, Tizanidine 4 mg TID PRN and Tramadol 50 mg TID PRN (5) Facet arthritis of lumbar region: Code(s): M47.816 - Spondylosis without myelopathy or radiculopathy, lumbar region Category: Medical Plan: Mostly over the right lower back - pain/symptoms are due to lumbar spine DDD and facet arthritis Lumbar spine x-rays done back in 2012 at [facility] [place] normal but repeat lumbar spine x-rays done in 2021 revealed (+) mild disc height loss at L5-S1 as well as mild L5-S1 facet arthropathy She was referred to physical therapy but because of her elbow injury, she was never able to start her PT Reinforced activity and weight-lifting restrictions States that she has Ibuprofen and Tramadol to take when needed for pain (6) Vitamin D deficiency: Code(s): E55.9 - Vitamin D deficiency, unspecified Category: Medical Plan: Continue Vitamin D2 58768 units once a week Reassured that her BMD (index) done in June 2022 came back normal - will recheck in 3 years (spring or summer of 2024) for follow up (7) GERD without esophagitis: Code(s): K21.9 - Gastro-esophageal reflux disease without esophagitis Category: Medical Plan: Dietary restrictions reinforced Continue Famotidine 40 mg Q HS PRN and Omeprazole 20 mg QD (8) Vitamin B12 deficiency (non anemic): Code(s): E53.8 - Deficiency of other specified B group vitamins Category: Medical Plan: Continue Vitamin B12 tablets 1000 mcg QD MMA level checked a few months ago came back normal (9) Allergic rhinitis: Code(s): J30.9 - Allergic rhinitis, unspecified Category: Medical Qualifiers: Allergic rhinitis trigger: unspecified Allergic rhinitis seasonality: unspecified Qualified Code(s): J30.9 - Allergic rhinitis, unspecified Plan: Continue Loratadine 10 mg QD PRN If symptoms are not adequately controlled on oral antihistamine alone, can add Fluticasone nasal spray QD PRN (10) Dermatitis: Code(s): L30.9 - Dermatitis, unspecified Category: Medical Plan: Continue Mometasone 0.1% cream QD PRN (11) Insomnia: Code(s): G47.00 - Insomnia, unspecified Category: Medical Qualifiers: Insomnia type: primary Qualified Code(s): F51.01 - Primary insomnia Plan: Sleep hygiene reinforced Relates that she has been getting a lot of headaches from Trazodone Will start her on a trial of Zolpidem 5 mg Q HS PRN (12) Overweight (BMI 25.0-29.9): Code(s): E66.3 - Overweight Category: Medical Plan: Reinforced diet/exercise as tolerated/lose weight Plan Follow up in 3 months Orders: Orders US abdomen complete Today R79.89 - Other specified abnormal findings of blood chemistry Vitamin D 25-OH Total 3 Months E55.9 - Vitamin D deficiency, unspecified Complete Blood Count Auto Diff 3 Months D64.9 - Anemia, unspecified Comprehensive Ethel. Panel Fast 3 Months E78.00 - Pure hypercholesterolemia, unspecified Lipid Panel 3 Months E78.00 - Pure hypercholesterolemia, unspecified UA CC w/rflx Micro + Cult 3 Months R30.0 - Dysuria Gamma Glutamyl Transpeptidase 3 Months R79.89 - Other specified abnormal findings of blood chemistry Medications: New zolpidem 5 mg PO BEDTIME PRN 30 tabs 0RF sleep/insomnia
== END 2024-09-24 11:28 | disposition home or self-care (01) ==
PROVIDERS: PCP Internal Medicine; Visit Provider Internal Medicine
DX: E78.00 Pure hypercholesterolemia, unspecified (principal); I10 Essential (primary) hypertension; R79.89 Other specified abnormal findings of blood chemistry; M47.812 Spondylosis without myelopathy or radiculopathy, cervical region; M47.816 Spondylosis without myelopathy or radiculopathy, lumbar region; E55.9 Vitamin D deficiency, unspecified; K21.9 Gastro-esophageal reflux disease without esophagitis; E53.8 Deficiency of other specified B group vitamins; J30.9 Allergic rhinitis, unspecified; L30.9 Dermatitis, unspecified; F51.01 Primary insomnia; E66.3 Overweight

== ENCOUNTER → 2024-09-24 09:56 | Outpatient (BNVA) | payer OTHER, SELFPAY | PROVIDERS: PCP Internal Medicine; Visit Provider Internal Medicine | DX: E78.00 Pure hypercholesterolemia, unspecified (principal); I10 Essential (primary) hypertension; R79.89 Other specified abnormal findings of blood chemistry; M47.812 Spondylosis without myelopathy or radiculopathy, cervical region; M47.816 Spondylosis without myelopathy or radiculopathy, lumbar region; E55.9 Vitamin D deficiency, unspecified; E53.8 Deficiency of other specified B group vitamins; L21.9 Seborrheic dermatitis, unspecified; J30.9 Allergic rhinitis, unspecified; L30.9 Dermatitis, unspecified; E66.3 Overweight | CPT/HCPCS: 96127; 99212 ==

== ENCOUNTER 2024-10-08 12:30 | Outpatient (REF) | payer OTHER, SELFPAY ==
--- NOTE | ~2024-10-08 | US_ITS ---
EXAMINATION: US ABDOMEN COMPLETE CLINICAL INFORMATION: Abnormal LFTs COMPARISON: Renal ultrasound 11/27/2018 TECHNIQUE: Real-time imaging of the abdominal viscera. FINDINGS: PANCREAS: Visualized portions are unremarkable. ABDOMINAL AORTA: The proximal, mid, and distal segments are normal in caliber. INFERIOR VENA CAVA: Visualized portions are normal. LIVER: The liver is normal in size. The liver is enlarged measuring 17.3 cm The liver contour is normal. Parenchymal echogenicity is increased. No focal hepatic lesion. There is no intrahepatic biliary duct dilatation seen. GALLBLADDER: There are multiple shadowing echogenic gallstones impacted in the neck. There are some floating echogenic stones as well. Gallbladder wall thickness is normal. COMMON BILE DUCT: Normal in caliber measuring 0.23 cm in diameter. RIGHT KIDNEY: No hydronephrosis. There is anechoic cyst in the upper pole measuring 3.6 x 3.4 x 3.3 cm. The kidney measures 11.3 cm in maximum dimension. LEFT KIDNEY: No hydronephrosis. No renal calculi or focal parenchymal lesions. The kidney measures 11.7 cm in maximum dimension. SPLEEN: The spleen measures 9.5 cm in maximum dimension. FREE FLUID: None. US/US abdomen complete IMPRESSION: Enlarged right lobe with slight increased echogenicity but no focal focal lesion seen. Cholelithiasis with impacted stone in neck of gallbladder but no wall thickening. Simple cyst upper pole right kidney. It is slightly increased in size since the previous study 11/27/2018. Electronically signed by: Nicholas Oshea MD 10/08/2024 01:41 PM EST
== END 2024-10-08 12:31 | disposition home or self-care (01) ==
LOC: HO.US 12:30
PROVIDERS: PCP Internal Medicine; Visit Provider Internal Medicine
DX: R79.89 Other specified abnormal findings of blood chemistry (principal)
CPT/HCPCS: 76700

== ENCOUNTER → 2024-10-08 12:31 | Outpatient (BNV) | payer OTHER, SELFPAY | PROVIDERS: PCP Internal Medicine; Visit Provider Radiology Diagnostic Radiology | DX: K80.20 Calculus of gallbladder without cholecystitis without obstruction (principal) | CPT/HCPCS: 76700 ==

== ENCOUNTER 2024-12-23 07:13 | Outpatient (REF) | payer OTHER, SELFPAY ==
[2024-12-23 07:29] LABS: MANUAL DIFF FLAG NO
[2024-12-23 07:47] LABS: Basophils Percent Auto 0.7 % (0-2); Eosinophils Absolute Auto 0.2 X10*3/uL (0.0-0.4); Hematocrit 38.6 % (37.0-47.0); Hemoglobin 12.2 g/dl (12.0-16.0); Imm Gran Abs Auto 0.02 X10*3/uL (0.00-0.03); Imm Gran Pct Auto 0.3 % (0.0-0.4); Lymphocytes Absolute Auto 2.1 X10*3/uL (1.2-4.9); Lymphocytes Percent Auto 34.9 % (20-40); Mean Corpuscular HGB Conc 31.6 g/dl (31.0-35.0); Mean Corpuscular Hemoglobin 29.2 pg (27.0-33.0); Mean Corpuscular Volume 92.3 fL (80.0-98.0); Mean Platelet Volume 11.6 fL (9.4-12.3); Monocytes Absolute Auto 0.6 X10*3/uL (0.1-1.2); Monocytes Percent Auto 10.2 % (2-11); Neutrophils Percent Auto 49.9 % (45-73); Platelet Count 211 X10*3/uL (160-400); Red Blood Count 4.18 X10*6/uL (4.20-5.50); Red Cell Distribution Width 13.9 % (11.0-16.0)
[2024-12-23 07:53] LABS: Appearance Urine Clear; Color Urine Yellow; Glucose Urine UA Negative (Negative); Leukocyte Esterase Urine Small (1+) (Negative); Nitrite Urine Negative (Negative); Specific Gravity - Urine 1.015 (1.005-1.025); UMIC TRIGGER UACC YES; Urine Blood Negative (Negative); Urine Ketones Negative (Negative); Urine Protein Negative (Neg-Trace)
[2024-12-23 07:58] LABS: Bacteria Urine None Seen (None Seen); Hyaline Casts Urine 0-2 /LPF (0-2); RBC Urine 0-2 /HPF (0-2); UACC Culture Trigger YES
[2024-12-23 08:14] LABS: Alanine Aminotransferase 69 U/L (0-31); Albumin Level 4.4 g/dL (3.5-5.0); Alkaline Phosphatase 65 U/L (39-117); Anion Gap 13 (12-20); Aspartate Amino Transferase 49 U/L (5-31); Bilirubin Total 0.6 mg/dL (0.0-1.0); Blood Urea Nitrogen 14 mg/dL (9-16); Calcium 9.3 mg/dL (8.4-10.2); Carbon Dioxide 27 mmol/L (22-29); Chloride 107 mmol/L (96-108); Cholesterol 189 mg/dL (<200); Estimated Glomerular Filt Rate > 60; Glucose Fasting 102 mg/dL (60-99); HDL Cholesterol 58 mg/dL (>40); LDL Cholesterol Calculated 98 mg/dL (<100); Potassium 4.7 mmol/L (3.3-5.1); Sodium 142 mmol/L (135-145); Total Protein 7.3 g/dL (6.5-8.0); Triglycerides 165 mg/dL (<150)
[2024-12-23 08:39] LABS: Vitamin D 25-OH Total 33.6 ng/mL (>30)
[2024-12-23 10:28] LABS: Gamma Glutamyl Transpeptidase 28 U/L (7-33)
== END 2024-12-23 07:14 | disposition home or self-care (01) ==
LOC: HO.LAB 07:13
PROVIDERS: PCP Internal Medicine; Visit Provider Internal Medicine
DX: E55.9 Vitamin D deficiency, unspecified (principal); D64.9 Anemia, unspecified; E78.00 Pure hypercholesterolemia, unspecified; R79.89 Other specified abnormal findings of blood chemistry; R30.0 Dysuria
CPT/HCPCS: 36415; 80053; 80061; 81001; 82306; 82977; 85025; 87086; 87147

== ENCOUNTER 2024-12-24 13:17 | Outpatient (AMB) | payer OTHER, SELFPAY ==
[2024-12-24 13:21] VITALS: BP 162/100; PULSE 92; O2SAT 99; BMI 32.1
--- NOTE | 2024-12-24 13:21 | A.OFFPC_ITS ---
Vital Signs 12/24/24 13:21 12/24/24 13:44 Height 5 ft 2 in Weight 175 lb 4 oz BMI 32.1 BP 162/100 H 188/100 H Blood Pressure Location Lt brachial Lt brachial Position Sitting Sitting Pulse 92 Pulse Source Pulse Oximeter Pulse Oximetry (%) 99 Oxygen Delivery Method Room Air Intake Visit Reasons: 3 Month F/U Monitoring Coordinator Required: No Accompanied by: Self / Same As Patient Allergies naproxen Allergy (Verified 12/24/24 13:31) Vomiting trazodone Adverse Reaction (Intermediate, Verified 12/24/24 13:31) headaches Medication List - Last Reconciled 12/24/24 by Ruddy Lunsford MD cyanocobalamin (vitamin B-12) 1,000 mcg PO DAILY 90 days docusate sodium (Colace) 200 mg (2 x 100 mg) PO BEDTIME ergocalciferol (vitamin D2) 1,250 mcg PO QWEEK ibuprofen 600 mg PO BID PRN 30 days lisinopril 30 mg PO DAILY loratadine 10 mg PO DAILY 90 days methylcellulose (laxative) (Citrucel) 500 mg PO BID mometasone 0.1% 1 appl topical DAILY PRN 15 days omeprazole 20 mg PO QAM polyethylene glycol 3350 17 grams PO DAILY 30 days rosuvastatin 5 mg PO DAILY 90 days tramadol 50 mg PO TID PRN 30 days zolpidem 5 mg PO BEDTIME PRN Tobacco use date assessed: 12/24/24 Dental Screening Dental Screen Date: 12/24/24 HPI 3 Month F/U HPI Details Patient comes in today for her follow up visit States that she feels okay but continues to experience increased pain over her lower back often She denies any headaches or dizziness Denies any chest pains, no SOB No nausea/vomiting, no abdominal pain No change in bowel habits noted She had her follow up labs done yesterday - to discuss her results Would also like to know how her abdominal US done a couple of months ago came out [facility] Medical History Vitamin B12 deficiency (non anemic) Facet arthritis of lumbar region Allergic rhinitis Overweight (BMI 25.0-29.9) COVID-19 vaccine series completed White coat syndrome with hypertension Post-operative nausea and vomiting Dermatitis Obesity (BMI 30-39.9) Insomnia Closed fracture of left ankle Hematuria GERD without esophagitis Elevated LFTs Vitamin D deficiency Cervical spondylosis Benign essential hypertension Pure hypercholesterolemia Kidney stones HTN (hypertension) Surgical History Hx of colonoscopy History of fracture of left ankle History of lithotripsy Family History Father Heart attack Mother Breast cancer Sister Breast cancer Diabetes Social History Housing: Apartment Are you a primary acute care occupational therapist to a significant other at home: No Do you presently have visiting nurse or other home services: No Alcohol intake: never Patient Tobacco Use Status: Never used Tobacco e-Cigarette/Vaping Use: Never Used Second Hand Smoke Exposure: No service: No Current occupational status: employed Current occupation: home care Cognitive needs: No Hearing needs: No Vision needs: No Female Reproductive History Menstrual Age of Menarche: 15 Questionnaire PHQ-9 Over the last 2 weeks, how often have you been bothered by any of the following problems? 1. Little interest or pleasure in doing things: not at all 2. Feeling down, depressed, or hopeless: not at all 3. Trouble falling or staying asleep, or sleeping too much: not at all 4. Feeling tired or having little energy: not at all 5. Poor appetite or overeating: not at all 6. Feeling bad about yourself - or that you are a failure or have let yourself or your family down: not at all 7. Trouble concentrating on things, such as reading the newspaper or watching television: not at all 8. Moving or speaking so slowly that other people could have noticed. Or the opposite - being so fidgety or restless that you have been moving around a lot more than usual: not at all 9. Thoughts that you would be better off or of hurting yourself in some way: not at all Total score: 0 Depression Screening Interpretation: Negative Depression Screening Done: Yes 55210 - PHQ-9 Billing: Yes Source: Developed by Drs. Danielito Chaudhari, Stephanie Dinh, Tung Avalos and colleagues, with an educational beck from [employer] Thrive Questionnaire Date Thrive assessed: 12/24/24 I am a: Patient What is your living situation today?: I have a steady place to live Within the past 12 months, did the food you bought not last and you didn't have the money to get more?: Never true Within the past 12 months, did you worry whether your food would run out before you got money to buy more?: Never true Do you have trouble paying for medicines?: No Do you have trouble getting transportation to medical appointments?: No Do you have trouble paying your heating and electricity bill?: No Do you have trouble taking care of your child, family member or friend?: No Do you have trouble with day-to-day activities such as bathing, preparing meals, shopping, managing finances, etc.?: No Are you currently unemployed and looking for a job?: No Are you interested in more education?: No Please select the resources that you would like help with: None Currently or been in a relationship where the following occur: No concerns reported THRIVE Score: 0 AUDIT C Alcohol Use Questionnaire (AUDIT-C) 1. How often do you have a drink containing alcohol?: Never 3. How often do you have six or more drinks on one occasion?: Never Total Score: 0 Score Reviewed/Action Taken: Yes KRISTYN-7 AMB Questionnaire KRISTYN-7 Date KRISTYN - 7 assessed: 12/24/24 Feeling nervous, anxious, or on edge: 0 = Not at all Not being able to stop or control worryin = Not at all Worrying too much about different things: 0 = Not at all Trouble relaxin = Not at all Being so restless that it is hard to sit still: 0 = Not at all Becoming easily annoyed or irritable: 0 = Not at all Feeling afraid as if something awful might happen: 0 = Not at all Total KRISTYN-7 score (0-4 normal; 5-9 mild; 10-14 moderate; 15-21 severe): 0 Source: Developed by Drs. Danielito Chaudhari, Stephanie Dinh, Tung Avalos and colleagues, with an educational beck from [employer] Review of Systems Const Denies chills, Reports difficulty sleeping, Denies fatigue, Denies fever(s) and Denies headache(s) ENT Denies dysphagia, Denies dizziness, Denies otalgia, Denies headache(s), Reports neck pain (on and off), Denies odynophagia and Denies sore throat Card Denies chest pain, Denies irregular heart rhythm, Denies palpitations and Denies dyspnea Resp Denies chest congestion, Denies cough and Denies dyspnea GI Denies abdominal pain, Denies constipation, Denies dysphagia, Denies heartburn, Denies diarrhea, Denies nausea, Denies odynophagia and Denies vomiting Denies difficulty voiding, Denies nocturia, Denies dysuria and Denies urinary urgency Musc Reports back pain (over the lower back - chronic), Reports arthralgias (right shoulder ) and Reports neck pain (on and off) Skin/Breast Denies rash Neuro Denies dizziness, Denies headache(s) and Denies paresthesias Psych Denies anxiety and Denies depression Endo Denies fatigue and Denies palpitations Munir/Lymph Denies easy bruising Physical exam (Primary Care) Vital Signs: Last Vital Signs Pulse 92 12/24/24 13:21 BP 188/100 H 12/24/24 13:44 Pulse Ox 99 12/24/24 13:21 Oxygen Delivery Method Room Air 12/24/24 13:21 BMI result Body Mass Index 32.1 Tobacco/Smoking Status: Tobacco use Status Tobacco use date assessed 12/24/24 12/24/24 13:28 Patient Tobacco Use Status Never used Tobacco 12/24/24 13:28 e-Cigarette/Vaping Use Never Used 12/24/24 13:28 PHQ-9: PHQ-9 Score PHQ-9: Total score 0 12/24/24 13:45 Depression Screening Interpretation: Negative Thrive Assessment: Date of Thrive Assessment Date Thrive assessed 12/24/24 12/24/24 13:28 Currently or been in a relationship where the following occur: No concerns reported Const General: no acute distress and alert HENMT Ears: TM's normal bilaterally and EAC's normal Throat: Yes posterior oropharynx normal and Yes tonsils normal (no TP congestion) Neck Neck: Yes supple and No lymphadenopathy Thyroid: Thyroid normal Resp Auscultation: clear to auscultation bilaterally, no rales and no wheezes Cardio Rate: regular rate Rhythm: regular rhythm Heart sounds: no murmurs GI Palpation (GI): Soft to palpation and nontender Auscultation: normal bowel sounds General: Yes no CVA tenderness Back/Spine/Pelvis Back: no CVA tenderness Cervical Spine: Cervical spine tenderness (mild) Thoracic/Lumbar Spine: paraspinal muscle tenderness bilaterally in the upper thoracic, in the mid thoracic, in the lower thoracic, in the upper lumbar, in the mid lumbar and in the lower lumbar and lumbar spinal tenderness (more on the right side) Skin Rashes: no rashes Extrem General: Yes no clubbing, cyanosis or edema Right upper extremity: shoulder/upper arm Details: tenderness Location: of the A-C joint and normal ROM Results Reviewed Results Reviewed: Laboratory Tests 12/23/24 12/23/24 07:23 07:28 WBC 6.0 Hgb 12.2 Hct 38.6 Plt Count 211 Sodium 142 Potassium 4.7 Creatinine 0.84 Estimated GFR > 60 Fasting Glucose 102 H Calcium 9.3 AST 49 H ALT 69 H Triglycerides 165 H Cholesterol 189 LDL Cholesterol, Calc 98 HDL Cholesterol 58 25-OH Vitamin D Total 33.6 Ur Specific [place] 1.015 Urine Protein Negative Urine Glucose (UA) Negative Urine Blood Negative Urine Nitrite Negative Ur Leukocyte Esterase Small (1+) H Coding Level of Care Code Est Pt Level 4 (16281) Complex EM visit Add On G2211 Diagnoses Pure hypercholesterolemia E78.00 Benign essential hypertension I10 Elevated LFTs R79.89 Cervical spondylosis M47.812 Facet arthritis of lumbar region M47.816 Vitamin D deficiency E55.9 GERD without esophagitis K21.9 Vitamin B12 deficiency (non anemic) E53.8 Allergic rhinitis, unspecified seasonality, unspecified trigger J30.9 Allergic rhinitis seasonality: unspecified Allergic rhinitis trigger: unspecified Dermatitis L30.9 Primary insomnia F51.01 Insomnia type: primary Obesity (BMI 30-39.9) E66.9 Additional Codes PHQ-9 - 57375 - PHQ-9 Billing: Yes ([id number]) Assessment & Plan Assessment & Plan (1) Pure hypercholesterolemia: Code(s): E78.00 - Pure hypercholesterolemia, unspecified Category: Medical Plan: Results of her labs done yesterday reviewed and discussed with patient Reinforced low cholesterol diet Continue Rosuvastatin 5 mg QD - she has been tolerating her Rx with no issues (she experienced increased back pain while on Atorvastatin 10 mg in the past) Will recheck her labs and fasting lipids again in 3 months for follow up (2) Benign essential hypertension: Code(s): I10 - Essential (primary) hypertension Category: Medical Plan: Reinforced low sodium diet - goal is systolic BP of at least 120 to 130 mm or less Her blood pressure is again elevated in the office today - confirmed on repeat BP Discussed that this is likely in part related to her increased low back pain but patient also has a component of white coat syndrome Continue Lisinopril 30 mg QD for now Will have her follow up with our nurse navigators in a few weeks for BP recheck (3) Elevated LFTs: Code(s): R79.89 - Other specified abnormal findings of blood chemistry Category: Medical Plan: Her LFTs are still elevated but have decreased from previous on her recent labs, especially her serum AST She had hepatitis testing back in February 2024, which came back negative Patient also reports NO acute GI symptoms lately, including abdominal pain Abdominal US done a couple of months ago revealed (+) slightly enlarged liver, especially the right lobe, as well as cholelithiasisa and a right upper pole kidney cyst that has increased from 2019 Will continue to monitor her LFTs regularly (4) Cervical spondylosis: Code(s): M47.812 - Spondylosis without myelopathy or radiculopathy, cervical region Category: Medical Plan: Continue Ibuprofen 600 mg TID with food PRN, Tizanidine 4 mg TID PRN and Tramadol 50 mg TID PRN (5) Facet arthritis of lumbar region: Code(s): M47.816 - Spondylosis without myelopathy or radiculopathy, lumbar region Category: Medical Plan: Mostly over the right lower back - pain/symptoms are due to lumbar spine DDD and facet arthritis Lumbar spine x-rays done back in 2012 at [facility] were normal but repeat lumbar spine x-rays done in 2021 revealed (+) mild disc height loss at L5-S1 as well as mild L5-S1 facet arthropathy She was referred to physical therapy but because of her elbow injury, she was never able to start her PT Reinforced activity and weight-lifting restrictions States that she has Ibuprofen and Tramadol to take when needed for pain Have offered to refer her to pain management but patient declined as she does not want to get any injections into her lower back at this time Because of her increasing low back pain lately, will send her for repeat lumbar spine and SI joint x-rays for further evaluation (6) Vitamin D deficiency: Code(s): E55.9 - Vitamin D deficiency, unspecified Category: Medical Plan: Continue Vitamin D2 03284 units once a week Reassured that her BMD (index) done in June 2022 came back normal - will recheck in 3 years (spring or summer of 2024) for follow up (7) GERD without esophagitis: Code(s): K21.9 - Gastro-esophageal reflux disease without esophagitis Category: Medical Plan: Dietary restrictions reinforced Continue Famotidine 40 mg Q HS PRN and Omeprazole 20 mg QD (8) Vitamin B12 deficiency (non anemic): Code(s): E53.8 - Deficiency of other specified B group vitamins Category: Medical Plan: Continue Vitamin B12 tablets 1000 mcg QD MMA level checked a few months ago came back normal (9) Allergic rhinitis: Code(s): J30.9 - Allergic rhinitis, unspecified Category: Medical Qualifiers: Allergic rhinitis seasonality: unspecified Allergic rhinitis trigger: unspecified Qualified Code(s): J30.9 - Allergic rhinitis, unspecified Plan: Continue Loratadine 10 mg QD PRN If symptoms are not adequately controlled on oral antihistamine alone, can add Fluticasone nasal spray QD PRN (10) Dermatitis: Code(s): L30.9 - Dermatitis, unspecified Category: Medical Plan: Continue Mometasone 0.1% cream QD PRN (11) Insomnia: Code(s): G47.00 - Insomnia, unspecified Category: Medical Qualifiers: Insomnia type: primary Qualified Code(s): F51.01 - Primary insomnia Plan: Sleep hygiene reinforced Relates that she has been getting a lot of headaches from Trazodone Continue Zolpidem 5 mg Q HS PRN (12) Obesity (BMI 30-39.9): Code(s): E66.9 - Obesity, unspecified Category: Medical Plan: Reinforced diet/exercise as tolerated/lose weight - she has gained some weight since her last visit Plan Follow up in 3 months Orders: Orders XR sacroiliac joint min 3V Today M54.50 - Low back pain, unspecified Complete Blood Count Auto Diff 3 Months D64.9 - Anemia, unspecified Comprehensive [place]. Panel Fast 3 Months E78.00 - Pure hypercholesterolemia, unspecified Lipid Panel 3 Months E78.00 - Pure hypercholesterolemia, unspecified TSH reflex Free T4 3 Months E78.00 - Pure hypercholesterolemia, unspecified Vitamin D 25-OH Total 3 Months E55.9 - Vitamin D deficiency, unspecified XR lumbar spine 2-3V Today M54.50 - Low back pain, unspecified UA CC w/rflx Micro + Cult 3 Months R30.0 - Dysuria Vitamin B12 and Folate 3 Months E53.8 - Deficiency of other specified B group vitamins
[2024-12-24 13:44] VITALS: BP 188/100
== END 2024-12-24 13:56 | disposition home or self-care (01) ==
LOC: HO.HMCH 13:18
PROVIDERS: PCP Internal Medicine; Visit Provider Internal Medicine
DX: E78.00 Pure hypercholesterolemia, unspecified (principal); I10 Essential (primary) hypertension; E66.9 Obesity, unspecified; Z68.32 Body mass index [BMI] 32.0-32.9, adult; R79.89 Other specified abnormal findings of blood chemistry; M47.812 Spondylosis without myelopathy or radiculopathy, cervical region; M47.816 Spondylosis without myelopathy or radiculopathy, lumbar region; E55.9 Vitamin D deficiency, unspecified; K21.9 Gastro-esophageal reflux disease without esophagitis; E53.8 Deficiency of other specified B group vitamins; J30.9 Allergic rhinitis, unspecified; L30.9 Dermatitis, unspecified

== ENCOUNTER → 2024-12-24 13:17 | Outpatient (BNVA) | payer OTHER, SELFPAY | PROVIDERS: PCP Internal Medicine; Visit Provider Internal Medicine | DX: I10 Essential (primary) hypertension (principal); M54.50 Low back pain, unspecified; E78.00 Pure hypercholesterolemia, unspecified; R79.89 Other specified abnormal findings of blood chemistry; M47.812 Spondylosis without myelopathy or radiculopathy, cervical region; E55.9 Vitamin D deficiency, unspecified; K21.9 Gastro-esophageal reflux disease without esophagitis; E53.8 Deficiency of other specified B group vitamins; J30.9 Allergic rhinitis, unspecified; L30.9 Dermatitis, unspecified; F51.01 Primary insomnia; E66.9 Obesity, unspecified; R30.0 Dysuria; Z68.32 Body mass index [BMI] 32.0-32.9, adult | CPT/HCPCS: 96127; 99212 ==

== ENCOUNTER 2024-12-25 11:12 | Outpatient (REF) | payer OTHER, SELFPAY ==
--- NOTE | ~2024-12-25 | XR_ITS ---
CLINICAL HISTORY: M54.50 - Low back pain, unspecified --- Additional Notes or Special Instructions: i ncreasing low back pain lately 3 views sacroiliac joints Comparison: None Findings No acute fractures. No significant degenerative change. No erosions. IMPRESSION: No acute findings This document has been electronically signed by: Eduin Garner MD on 12/26/2024 13:53:58
--- NOTE | ~2024-12-25 | XR_ITS ---
CLINICAL HISTORY: M54.50 - Low back pain, unspecified 3 views lumbar spine Comparison: 01/09/2022 Findings: Normal alignment. No acute fractures or dislocation. There is multiple level degenerative disc and facet change. IMPRESSION: No acute findings. This document has been electronically signed by: Eduin Garner MD on 12/26/2024 13:55:32
== END 2024-12-25 11:13 | disposition home or self-care (01) ==
LOC: HO.XRAY 11:12
PROVIDERS: PCP Internal Medicine; Visit Provider Internal Medicine
DX: M54.50 Low back pain, unspecified (principal)
CPT/HCPCS: 72100; 72202

== ENCOUNTER → 2024-12-25 11:16 | Outpatient (BNV) | payer OTHER, SELFPAY | PROVIDERS: PCP Internal Medicine; Visit Provider Specialist | DX: M54.50 Low back pain, unspecified (principal) | CPT/HCPCS: 72100; 72202 ==

== ENCOUNTER → 2025-01-08 12:19 | Outpatient (BNVA) | payer OTHER, SELFPAY | PROVIDERS: PCP Internal Medicine ==

== ENCOUNTER → 2025-02-12 12:33 | Outpatient (BNVA) | payer OTHER, SELFPAY | PROVIDERS: PCP Internal Medicine | DX: I10 Essential (primary) hypertension (principal) | CPT/HCPCS: 99211 ==

== ENCOUNTER 2025-03-28 08:48 | Outpatient (REF) | payer OTHER, SELFPAY ==
[2025-03-28 09:12] LABS: MANUAL DIFF FLAG NO
[2025-03-28 09:50] LABS: Hematocrit 40.4 % (37.0-47.0); Hemoglobin 12.4 g/dl (12.0-16.0); Imm Gran Abs Auto 0.02 X10*3/uL (0.00-0.03); Imm Gran Pct Auto 0.3 % (0.0-0.4); Lymphocytes Absolute Auto 2.0 X10*3/uL (1.2-4.9); Mean Corpuscular HGB Conc 30.7 g/dl (31.0-35.0); Mean Corpuscular Hemoglobin 28.6 pg (27.0-33.0); Mean Corpuscular Volume 93.3 fL (80.0-98.0); NRBC Abs Auto 0.000 X10*3/uL (0.0-0.012); NRBC Pct Auto 0.0 /100WBC (0.0-0.2); Platelet Count 199 X10*3/uL (160-400); Red Blood Count 4.33 X10*6/uL (4.20-5.50); White Blood Count 6.0 X10*3/uL (4.8-10.8)
[2025-03-28 10:38] LABS: Appearance Urine Clear; Glucose Urine UA Negative (Negative); PH 6.5 (5.0-9.0); Specific Gravity - Urine 1.010 (1.005-1.025)
[2025-03-28 11:22] LABS: Alanine Aminotransferase 66 U/L (0-31); Albumin Level 4.8 g/dL (3.5-5.0); Alkaline Phosphatase 67 U/L (39-117); Anion Gap 16 (12-20); Aspartate Amino Transferase 43 U/L (5-31); Blood Urea Nitrogen 15 mg/dL (9-16); Calcium 9.4 mg/dL (8.4-10.2); Carbon Dioxide 26 mmol/L (22-29); Chloride 108 mmol/L (96-108); Cholesterol 184 mg/dL (<200); Estimated Glomerular Filt Rate > 60; HDL Cholesterol 58 mg/dL (>40); Potassium 4.5 mmol/L (3.3-5.1); Sodium 145 mmol/L (135-145); Total Protein 7.4 g/dL (6.5-8.0); Triglycerides 172 mg/dL (<150)
[2025-03-28 11:50] LABS: Folate 11.3 ng/mL (> or = 4.0); Vitamin B12 329 pg/mL (200-900)
== END 2025-03-28 08:49 | disposition home or self-care (01) ==
LOC: HO.LAB 08:48
PROVIDERS: PCP Internal Medicine; Visit Provider Internal Medicine
DX: E53.8 Deficiency of other specified B group vitamins (principal); E78.00 Pure hypercholesterolemia, unspecified; D64.9 Anemia, unspecified; E55.9 Vitamin D deficiency, unspecified; R30.0 Dysuria
CPT/HCPCS: 36415; 80053; 80061; 81003; 82306; 82607; 82746; 84443; 85025

== ENCOUNTER 2025-04-02 11:15 | Outpatient (AMB) | payer OTHER, SELFPAY ==
[2025-04-02 11:25] VITALS: BP 142/86; PULSE 87; TEMP 36.5; O2SAT 98; BMI 31.3
--- NOTE | 2025-04-02 11:25 | MHC.PC.OV ---
Vital Signs 04/02/25 11:25 04/02/25 12:45 Height 5 ft 2 in Weight 171 lb 2 oz BMI 31.3 BP 142/86 H 140/100 H Blood Pressure Location Lt brachial Lt brachial Position Sitting Sitting Pulse 87 Pulse Source Pulse Oximeter Temp 97.7 F Temp Source Temporal Artery Scan Pulse Oximetry (%) 98 Oxygen Delivery Method Room Air Intake Visit Reasons: 3 mo hyperlipidemia, HTN, low back pain Allergies naproxen Allergy (Verified 04/02/25 12:32) Vomiting trazodone Adverse Reaction (Intermediate, Verified 04/02/25 12:32) headaches Medication List - Last Reconciled 04/02/25 by Ruddy Lunsford MD cyanocobalamin (vitamin B-12) 1,000 mcg PO DAILY 90 days docusate sodium (Colace) 200 mg (2 x 100 mg) PO BEDTIME ergocalciferol (vitamin D2) 1,250 mcg PO QWEEK hydrochlorothiazide 12.5 mg PO DAILY ibuprofen 600 mg PO BID PRN 30 days lisinopril 30 mg PO DAILY loratadine 10 mg PO DAILY 90 days methylcellulose (laxative) (Citrucel) 500 mg PO BID mometasone 0.1% 1 appl topical DAILY PRN 15 days omeprazole 20 mg PO QAM polyethylene glycol 3350 17 grams PO DAILY 30 days rosuvastatin 5 mg PO DAILY 90 days tramadol 50 mg PO TID PRN 30 days zolpidem 5 mg PO BEDTIME PRN Tobacco use date assessed: 04/02/25 Dental Screening Dental Screen Date: 04/02/25 Did you have a dental visit in the last 12 months?: Yes Did you have a dental problem in the last 6 months where you did not have access to dental care?: No Was dental information given to patient?: Patient has dentist HPI 3 mo hyperlipidemia, HTN, low back pain HPI Details Patient comes in today for her follow-up visit States that she feels okay except for some right thigh symptoms, which she states have been bothering her for a while now Relates that she has been experiencing frequent sensation of numbness and tingling sensation over the anterolateral aspect of her right thigh for a while now; denies any increased thigh pain and notes that she does not have any increased pain in her right hip She denies any headaches or dizziness Denies any chest pains, no shortness of breath No nausea/vomiting, no abdominal pain No change in bowel habits noted States that her chronic low back pain and joint pains remain adequately controlled on her current medications Needs her Lorazepam Rx refilled as she will be flying out to [place] in a few weeks She had her follow-up labs done a few days ago - to discuss her results [facility] Medical History Vitamin B12 deficiency (non anemic) Facet arthritis of lumbar region Allergic rhinitis Overweight (BMI 25.0-29.9) COVID-19 vaccine series completed White coat syndrome with hypertension Post-operative nausea and vomiting Dermatitis Obesity (BMI 30-39.9) Insomnia Closed fracture of left ankle Hematuria GERD without esophagitis Elevated LFTs Vitamin D deficiency Cervical spondylosis Benign essential hypertension Pure hypercholesterolemia Kidney stones HTN (hypertension) Surgical History Hx of colonoscopy History of fracture of left ankle History of lithotripsy Family History Father Heart attack Mother Breast cancer Sister Breast cancer Diabetes Social History Housing: Apartment Are you a primary patient care associate to a significant other at home: No Do you presently have visiting nurse or other home services: No Alcohol intake: never Patient Tobacco Use Status: Never used Tobacco e-Cigarette/Vaping Use: Never Used Second Hand Smoke Exposure: No service: No Current occupational status: employed Current occupation: home care Cognitive needs: No Hearing needs: No Vision needs: No Female Reproductive History Menstrual Age of Menarche: 15 Questionnaire PHQ-9 Over the last 2 weeks, how often have you been bothered by any of the following problems? 1. Little interest or pleasure in doing things: more than half the days 2. Feeling down, depressed, or hopeless: not at all 3. Trouble falling or staying asleep, or sleeping too much: not at all 4. Feeling tired or having little energy: not at all 5. Poor appetite or overeating: not at all 6. Feeling bad about yourself - or that you are a failure or have let yourself or your family down: not at all 7. Trouble concentrating on things, such as reading the newspaper or watching television: not at all 8. Moving or speaking so slowly that other people could have noticed. Or the opposite - being so fidgety or restless that you have been moving around a lot more than usual: not at all 9. Thoughts that you would be better off or of hurting yourself in some way: not at all Total score: 2 Depression Screening Interpretation: Negative Depression Screening Done: Yes 38414 - PHQ-9 Billing: Yes Source: Developed by Drs. Danielito Chaudhari, Stephanie Dinh, Tung Avalos and colleagues, with an educational beck from [employer] Thrive Questionnaire Date Thrive assessed: 12/24/24 I am a: Patient What is your living situation today?: I have a steady place to live Within the past 12 months, did the food you bought not last and you didn't have the money to get more?: Never true Within the past 12 months, did you worry whether your food would run out before you got money to buy more?: Never true Do you have trouble paying for medicines?: No Do you have trouble getting transportation to medical appointments?: No Do you have trouble paying your heating and electricity bill?: No Do you have trouble taking care of your child, family member or friend?: No Do you have trouble with day-to-day activities such as bathing, preparing meals, shopping, managing finances, etc.?: No Are you currently unemployed and looking for a job?: No Are you interested in more education?: No Please select the resources that you would like help with: None Currently or been in a relationship where the following occur: No concerns reported THRIVE Score: 0 AUDIT C Alcohol Use Questionnaire (AUDIT-C) 1. How often do you have a drink containing alcohol?: Never 3. How often do you have six or more drinks on one occasion?: Never Total Score: 0 Score Reviewed/Action Taken: Yes KRISTYN-7 AMB Questionnaire KRISTYN-7 Date KRISTYN - 7 assessed: 12/24/24 Feeling nervous, anxious, or on edge: 0 = Not at all Not being able to stop or control worryin = Not at all Worrying too much about different things: 0 = Not at all Trouble relaxin = Not at all Being so restless that it is hard to sit still: 0 = Not at all Becoming easily annoyed or irritable: 0 = Not at all Feeling afraid as if something awful might happen: 0 = Not at all Total KRISTYN-7 score (0-4 normal; 5-9 mild; 10-14 moderate; 15-21 severe): 0 Source: Developed by Drs. Danielito Chaudhari, Stephanie Dinh, Tung Avalos and colleagues, with an educational beck from [employer] Review of Systems Const Denies chills, Reports difficulty sleeping, Denies fatigue, Denies fever(s) and Denies headache(s) ENT Denies dysphagia, Denies dizziness, Denies otalgia, Denies headache(s), Reports neck pain (on and off), Denies odynophagia and Denies sore throat Card Denies chest pain, Denies irregular heart rhythm, Denies palpitations and Denies dyspnea Resp Denies chest congestion, Denies cough and Denies dyspnea GI Denies abdominal pain, Denies constipation, Denies dysphagia, Denies heartburn, Denies diarrhea, Denies nausea, Denies odynophagia and Denies vomiting Denies difficulty voiding, Denies nocturia, Denies dysuria and Denies urinary urgency Musc Reports back pain (over the lower back - chronic), Reports arthralgias (right shoulder ), Reports neck pain (on and off) and Reports tingling (over the right thigh - see HPI) Skin/Breast Denies rash Neuro Denies dizziness, Denies headache(s), Reports tingling (over the right thigh - see HPI) and Denies paresthesias Psych Denies anxiety and Denies depression Endo Denies fatigue and Denies palpitations Munir/Lymph Denies easy bruising Physical exam (Primary Care) Vital Signs: Last Vital Signs Temp 97.7 F 04/02/25 11:25 Pulse 87 04/02/25 11:25 BP 140/100 H 04/02/25 12:45 Pulse Ox 98 04/02/25 11:25 Oxygen Delivery Method Room Air 04/02/25 11:25 BMI result Body Mass Index 31.3 Tobacco/Smoking Status: Tobacco use Status Tobacco use date assessed 04/02/25 04/02/25 11:31 Patient Tobacco Use Status Never used Tobacco 04/02/25 11:31 e-Cigarette/Vaping Use Never Used 04/02/25 11:31 PHQ-9: PHQ-9 Score PHQ-9: Total score 2 04/02/25 12:42 Depression Screening Interpretation: Negative Thrive Assessment: Date of Thrive Assessment Date Thrive assessed 12/24/24 04/02/25 11:31 Currently or been in a relationship where the following occur: No concerns reported Const General: no acute distress and alert HENMT Ears: TM's normal bilaterally and EAC's normal Throat: Yes posterior oropharynx normal and Yes tonsils normal (no TP congestion) Neck Neck: Yes supple and No lymphadenopathy Thyroid: Thyroid normal Resp Auscultation: clear to auscultation bilaterally, no rales and no wheezes Cardio Rate: regular rate Rhythm: regular rhythm Heart sounds: no murmurs GI Palpation (GI): Soft to palpation and nontender Auscultation: normal bowel sounds General: Yes no CVA tenderness Back/Spine/Pelvis Back: no CVA tenderness Cervical Spine: Cervical spine tenderness (mild) Thoracic/Lumbar Spine: paraspinal muscle tenderness bilaterally in the upper thoracic, in the mid thoracic, in the lower thoracic, in the upper lumbar, in the mid lumbar and in the lower lumbar and lumbar spinal tenderness (more on the right side) Skin Rashes: no rashes Extrem General: Yes no clubbing, cyanosis or edema Right upper extremity: shoulder/upper arm Details: tenderness Location: of the A-C joint and normal ROM Results Reviewed Results Reviewed: Laboratory Tests 03/28/25 03/28/25 09:03 09:11 WBC 6.0 Hgb 12.4 Hct 40.4 Plt Count 199 Sodium 145 Potassium 4.5 Creatinine 0.90 Estimated GFR > 60 Fasting Glucose 104 H Calcium 9.4 AST 43 H ALT 66 H Triglycerides 172 H Cholesterol 184 LDL Cholesterol, Calc 92 HDL Cholesterol 58 Vitamin B12 329 25-OH Vitamin D Total 37.2 TSH 1.08 Ur Specific Clifford 1.010 Urine Protein Negative Urine Glucose (UA) Negative Urine Blood Negative Urine Nitrite Negative Ur Leukocyte Esterase Negative Coding Level of Care Code Est Pt Level 4 (68285) Diagnoses Pure hypercholesterolemia E78.00 Benign essential hypertension I10 Elevated LFTs R79.89 Cervical spondylosis M47.812 Facet arthritis of lumbar region M47.816 Vitamin D deficiency E55.9 GERD without esophagitis K21.9 Vitamin B12 deficiency (non anemic) E53.8 Allergic rhinitis, unspecified seasonality, unspecified trigger J30.9 Allergic rhinitis seasonality: unspecified Allergic rhinitis trigger: unspecified Dermatitis L30.9 Paresthesia of right lower extremity R20.2 Primary insomnia F51.01 Insomnia type: primary Obesity (BMI 30-39.9) E66.9 Additional Codes PHQ-9 - 99971 - PHQ-9 Billing: Yes ([id number]) Assessment & Plan Assessment & Plan (1) Pure hypercholesterolemia: Code(s): E78.00 - Pure hypercholesterolemia, unspecified Category: Medical Plan: Results of her labs done a few days ago reviewed and discussed with patient Reinforced low cholesterol diet Continue Rosuvastatin 5 mg QD - she has been tolerating her Rx with no issues (she experienced increased back pain while on Atorvastatin 10 mg in the past) Will recheck her labs and fasting lipids again in 3 months for follow up (2) Benign essential hypertension: Code(s): I10 - Essential (primary) hypertension Category: Medical Plan: Reinforced low sodium diet - goal is systolic BP of at least 120 to 130 mm or less Her blood pressure is again elevated in the office today - confirmed on repeat BP Patient appears to have degree of white coat syndrome Continue Lisinopril 30 mg QD for now Will have her follow up with our nurse navigators in a few weeks for BP recheck (3) Elevated LFTs: Code(s): R79.89 - Other specified abnormal findings of blood chemistry Category: Medical Plan: Her LFTs are still elevated but have decreased from previous on her recent labs, especially her serum AST She had hepatitis testing back in February 2024, which came back negative Patient reports NO acute GI symptoms lately, including abdominal pain Abdominal US done a few months ago in October 2024 revealed (+) slightly enlarged liver, especially the right lobe, as well as cholelithiasisa and a right upper pole kidney cyst that has increased from 2019 Will continue to monitor her LFTs regularly (4) Cervical spondylosis: Code(s): M47.812 - Spondylosis without myelopathy or radiculopathy, cervical region Category: Medical Plan: Continue Ibuprofen 600 mg TID with food PRN, Tizanidine 4 mg TID PRN and Tramadol 50 mg TID PRN (5) Facet arthritis of lumbar region: Code(s): M47.816 - Spondylosis without myelopathy or radiculopathy, lumbar region Category: Medical Plan: Mostly over the right lower back - pain/symptoms are due to lumbar spine DDD and facet arthritis Lumbar spine x-rays done back in 2012 at [facility] [place], [place] were normal but repeat lumbar spine x-rays done in 2021 revealed (+) mild disc height loss at L5-S1 as well as mild L5-S1 facet arthropathy She was referred to physical therapy but because of her elbow injury, she was never able to start her PT Reinforced activity and weight-lifting restrictions States that she has Ibuprofen and Tramadol to take when needed for pain Have offered to refer her to pain management but patient declined as she does not want to get any injections into her lower back at this time Because of her increasing low back pain lately, she was previously sent for repeat lumbar spine and SI joint x-rays for further evaluation - x-rays done back ion December 2024 revealed (+) multiple level degenerative disc and facet arthritis with no acute findings (6) Vitamin D deficiency: Code(s): E55.9 - Vitamin D deficiency, unspecified Category: Medical Plan: Continue Vitamin D2 54149 units once a week Reassured that her BMD (index) done in June 2022 came back normal - will recheck in 3 years for follow up and we will order this at her next follow up appointment later this year (7) GERD without esophagitis: Code(s): K21.9 - Gastro-esophageal reflux disease without esophagitis Category: Medical Plan: Dietary restrictions reinforced Continue Famotidine 40 mg Q HS PRN and Omeprazole 20 mg QD (8) Vitamin B12 deficiency (non anemic): Code(s): E53.8 - Deficiency of other specified B group vitamins Category: Medical Plan: Continue Vitamin B12 tablets 1000 mcg QD MMA level checked a few months ago came back normal (9) Allergic rhinitis: Code(s): J30.9 - Allergic rhinitis, unspecified Category: Medical Qualifiers: Allergic rhinitis seasonality: unspecified Allergic rhinitis trigger: unspecified Qualified Code(s): J30.9 - Allergic rhinitis, unspecified Plan: Continue Loratadine 10 mg QD PRN If symptoms are not adequately controlled on oral antihistamine alone, can add Fluticasone nasal spray QD PRN (10) Dermatitis: Code(s): L30.9 - Dermatitis, unspecified Category: Medical Plan: Continue Mometasone 0.1% cream QD PRN (11) Paresthesia of right lower extremity: Code(s): R20.2 - Paresthesia of skin Category: Medical Plan: Suspect meralgia paresthetica Will send patient for EMG and NCV of the right lower extremity for further evaluation (12) Insomnia: Code(s): G47.00 - Insomnia, unspecified Category: Medical Qualifiers: Insomnia type: primary Qualified Code(s): F51.01 - Primary insomnia Plan: Sleep hygiene reinforced Relates that she has been getting a lot of headaches from Trazodone Continue Zolpidem 5 mg Q HS PRN (13) Obesity (BMI 30-39.9): Code(s): E66.9 - Obesity, unspecified Category: Medical Plan: Reinforced diet/exercise as tolerated/lose weight Plan Follow up in 3 months Orders: Orders Lipid Panel 3 Months E78.00 - Pure hypercholesterolemia, unspecified TSH reflex Free T4 3 Months E78.00 - Pure hypercholesterolemia, unspecified UA CC w/rflx Micro + Cult 3 Months R30.0 - Dysuria Vitamin B12 and Folate 3 Months E53.8 - Deficiency of other specified B group vitamins Hemoglobin A1c 3 Months R73.01 - Impaired fasting glucose NE nerve conduction velocity 04/02/25 M54.10 - Radiculopathy, site unspecified NE electromyogram (EMG) 04/02/25 M54.10 - Radiculopathy, site unspecified Complete Blood Count Auto Diff 3 Months D64.9 - Anemia, unspecified Comprehensive [place]. Panel Fast 3 Months E78.00 - Pure hypercholesterolemia, unspecified Vitamin D 25-OH Total 3 Months E55.9 - Vitamin D deficiency, unspecified Medications: Refilled lorazepam Take 1 tablet 30 minutes before [address] plane. May take a 2nd dose after 20 to 30 minutes if needed PRN; 10 tabs 0RF anxiety
[2025-04-02 12:45] VITALS: BP 140/100
== END 2025-04-02 12:48 | disposition home or self-care (01) ==
LOC: HO.HMCH 11:16
PROVIDERS: PCP Internal Medicine; Visit Provider Internal Medicine
DX: E78.00 Pure hypercholesterolemia, unspecified (principal); I10 Essential (primary) hypertension; Z68.31 Body mass index [BMI] 31.0-31.9, adult; E66.9 Obesity, unspecified; R79.89 Other specified abnormal findings of blood chemistry; M47.812 Spondylosis without myelopathy or radiculopathy, cervical region; M47.816 Spondylosis without myelopathy or radiculopathy, lumbar region; E55.9 Vitamin D deficiency, unspecified; K21.9 Gastro-esophageal reflux disease without esophagitis; E53.8 Deficiency of other specified B group vitamins; J30.9 Allergic rhinitis, unspecified; L30.9 Dermatitis, unspecified

== ENCOUNTER → 2025-04-02 11:15 | Outpatient (BNVA) | payer OTHER, SELFPAY | PROVIDERS: PCP Internal Medicine; Visit Provider Internal Medicine | DX: I10 Essential (primary) hypertension (principal); M54.50 Low back pain, unspecified; E78.5 Hyperlipidemia, unspecified; E78.00 Pure hypercholesterolemia, unspecified; R79.89 Other specified abnormal findings of blood chemistry; M47.812 Spondylosis without myelopathy or radiculopathy, cervical region; M47.816 Spondylosis without myelopathy or radiculopathy, lumbar region; E55.9 Vitamin D deficiency, unspecified; K21.9 Gastro-esophageal reflux disease without esophagitis; E53.8 Deficiency of other specified B group vitamins; J30.9 Allergic rhinitis, unspecified; L30.9 Dermatitis, unspecified; R20.2 Paresthesia of skin; F51.01 Primary insomnia; E66.9 Obesity, unspecified; Z68.31 Body mass index [BMI] 31.0-31.9, adult | CPT/HCPCS: 96127; 99212 ==

== ENCOUNTER 2025-04-23 10:01 | Outpatient (REF) | payer OTHER, SELFPAY ==
--- NOTE | ~2025-04-23 | MM_ITS ---
EXAMINATION: MM SCREENING DIGITAL BREAST TOMOSYNTHESIS, BILATERAL CLINICAL INFORMATION: Screening. Asymptomatic. COMPARISON: Mammography: Comparison is made with available priors TECHNIQUE: Digital breast mammography with tomosynthesis is performed in both the craniocaudal and mediolateral oblique views along with computer-aided detection (CAD). FINDINGS: There are scattered areas of fibroglandular density (ACR BI-RADS breast composition Category b). There are no significant masses, abnormal calcifications, or other abnormalities. MM/MM tomosynthesis screening BI IMPRESSION: No mammographic evidence of malignancy. ASSESSMENT: BI-RADS BI-RADS 1 - Negative RECOMMENDATION: Routine annual mammography screening. 1 year F/U This examination should not preclude the clinical evaluation of a suspicious palpable abnormality. This patient's information was entered into a reminder system with a target due date for their next mammogram. Electronically signed by: Azra Zabala DO 04/27/2025 02:18 PM EDT
== END 2025-04-23 10:02 | disposition home or self-care (01) ==
LOC: HO.MAMMO 10:01
PROVIDERS: PCP Internal Medicine; Visit Provider Internal Medicine
DX: Z12.31 Encounter for screening mammogram for malignant neoplasm of breast (principal)
CPT/HCPCS: 77063; 77067

== ENCOUNTER → 2025-04-23 10:15 | Outpatient (BNV) | payer OTHER, SELFPAY | PROVIDERS: PCP Internal Medicine; Visit Provider Internal Medicine | DX: Z12.31 Encounter for screening mammogram for malignant neoplasm of breast (principal) | CPT/HCPCS: 77063; 77067 ==

== ENCOUNTER 2025-05-26 08:19 | Outpatient (REF) | payer OTHER, SELFPAY ==
--- NOTE | 2025-05-26 08:22 | EMG_ITS ---
Chief complaint: Right thigh pain Reason for referral:M54.10 radiculopathy Referred by: Ruddy Pelayo MD Procedure done: NSC / EMG performed Right tibial and peroneal motor studies were performed with F responses. Tibial H-reflex was obtained. Right superficial peroneal and sural sensory studies were performed. Bilateral lateral femoral cutaneous sensory studies were also performed. EMG needle examination was performed. Bilateral lateral femoral cutaneous studies revealed slow conduction velocity has significantly reduced amplitudes. Conduction velocity was in 20s with right-sided stimulation. Long duration polyphasic motor unit potentials were noted in right lower paraspinal and 1+ fibs and positive sharp waves with decreased recruitment was noted in medial gastrocnemius. H-reflex was present. Impression: Main finding is moderately severe bilateral, right more than left, lateral femoral cutaneous sensory neuropathy. There was also limited evidence of right lower lumbar radiculopathy. MTDD
== END 2025-05-26 08:20 | disposition home or self-care (01) ==
LOC: HO.NEURO 08:19
PROVIDERS: PCP Internal Medicine; Visit Provider Internal Medicine
DX: F51.01 Primary insomnia (principal); M54.10 Radiculopathy, site unspecified
CPT/HCPCS: 95886; 95910

== ENCOUNTER → 2025-05-26 08:22 | Outpatient (BNV) | payer OTHER, SELFPAY | PROVIDERS: PCP Internal Medicine; Visit Provider Psychiatry & Neurology Neurology | DX: G56.03 Carpal tunnel syndrome, bilateral upper limbs (principal) | CPT/HCPCS: 95886; 95910 ==

== ENCOUNTER 2025-07-10 08:24 | Outpatient (REF) | payer OTHER, SELFPAY ==
[2025-07-10 08:38] LABS: MANUAL DIFF FLAG NO
[2025-07-10 09:08] LABS: Hematocrit 40.9 % (37.0-47.0); Hemoglobin 12.7 g/dl (12.0-16.0); Imm Gran Abs Auto 0.01 X10*3/uL (0.00-0.03); Imm Gran Pct Auto 0.1 % (0.0-0.4); Lymphocytes Absolute Auto 2.0 X10*3/uL (1.2-4.9); Mean Corpuscular HGB Conc 31.1 g/dl (31.0-35.0); Mean Corpuscular Hemoglobin 28.3 pg (27.0-33.0); Mean Corpuscular Volume 91.3 fL (80.0-98.0); NRBC Abs Auto 0.000 X10*3/uL (0.0-0.012); NRBC Pct Auto 0.0 /100WBC (0.0-0.2); Platelet Count 217 X10*3/uL (160-400); Red Blood Count 4.48 X10*6/uL (4.20-5.50); White Blood Count 7.3 X10*3/uL (4.8-10.8)
[2025-07-10 09:21] LABS: Appearance Urine Clear; Glucose Urine UA Negative (Negative); PH 6.0 (5.0-9.0); Specific Gravity - Urine 1.025 (1.005-1.025); UMIC TRIGGER UACC YES
[2025-07-10 09:47] LABS: Alanine Aminotransferase 63 U/L (0-31); Albumin Level 4.8 g/dL (3.5-5.0); Alkaline Phosphatase 73 U/L (39-117); Anion Gap 12 (12-20); Aspartate Amino Transferase 42 U/L (5-31); Blood Urea Nitrogen 17 mg/dL (9-16); Calcium 9.6 mg/dL (8.4-10.2); Carbon Dioxide 28 mmol/L (22-29); Chloride 109 mmol/L (96-108); Cholesterol 180 mg/dL (<200); Estimated Glomerular Filt Rate > 60; HDL Cholesterol 56 mg/dL (>40); Potassium 4.7 mmol/L (3.3-5.1); Sodium 144 mmol/L (135-145); Total Protein 7.6 g/dL (6.5-8.0); Triglycerides 168 mg/dL (<150)
[2025-07-10 10:08] LABS: Folate 10.6 ng/mL (> or = 4.0); Vitamin B12 355 pg/mL (200-900)
== END 2025-07-10 08:25 | disposition home or self-care (01) ==
LOC: HO.LAB 08:24
PROVIDERS: PCP Internal Medicine; Visit Provider Internal Medicine
DX: E53.8 Deficiency of other specified B group vitamins (principal); E78.00 Pure hypercholesterolemia, unspecified; E55.9 Vitamin D deficiency, unspecified; D64.9 Anemia, unspecified; R73.01 Impaired fasting glucose; R30.0 Dysuria
CPT/HCPCS: 36415; 80053; 80061; 81001; 82306; 82607; 82746; 83036; 84443; 85025

== ENCOUNTER 2025-07-17 10:59 | Outpatient (AMB) | payer OTHER, SELFPAY ==
--- NOTE | 2025-07-17 11:06 | MHC.PC.OV ---
Vital Signs 07/17/25 11:07 Height 5 ft 2 in Weight 168 lb 6 oz BMI 30.8 BP 140/80 H Blood Pressure Location Lt brachial Position Sitting Pulse 92 Pulse Source Pulse Oximeter Pulse Oximetry (%) 98 Oxygen Delivery Method Room Air Intake Visit Reasons: 3 Months Vp Of Customer Experience Strategy Required: No Accompanied by: Self / Same As Patient Allergies naproxen Allergy (Verified 07/17/25 11:20) Vomiting trazodone Adverse Reaction (Intermediate, Verified 07/17/25 11:20) headaches Medication List - Last Reconciled 07/17/25 by Ruddy Lunsford MD cyanocobalamin (vitamin B-12) 1,000 mcg PO DAILY 90 days docusate sodium (Colace) 200 mg (2 x 100 mg) PO BEDTIME ergocalciferol (vitamin D2) 1,250 mcg PO QWEEK hydrochlorothiazide 12.5 mg PO DAILY ibuprofen 600 mg PO BID PRN 30 days lisinopril 30 mg PO DAILY loratadine 10 mg PO DAILY 90 days lorazepam Take 1 tablet 30 minutes before boarding plane. May take a 2nd dose after 20 to 30 minutes if needed PRN; methylcellulose (laxative) (Citrucel) 500 mg PO BID mometasone 0.1% 1 appl topical DAILY PRN 15 days omeprazole 20 mg PO QAM polyethylene glycol 3350 17 grams PO DAILY 30 days rosuvastatin 5 mg PO DAILY 90 days tramadol 50 mg PO TID PRN 30 days zolpidem 5 mg PO BEDTIME PRN Tobacco use date assessed: 07/17/25 Dental Screening Dental Screen Date: 07/17/25 Did you have a dental visit in the last 12 months?: Yes Did you have a dental problem in the last 6 months where you did not have access to dental care?: No Was dental information given to patient?: Patient has dentist HPI 3 Months HPI Details Patient comes in today for her follow-up visit States that she is still experiencing the recurrent right thigh symptoms that have been bothering her for several months now, which she describes as a frequent sensation of numbness and tingling, mostly over the anterolateral aspect of her right thigh States that it feels like a painful, burning sensation at times that feels worse in the afternoon, especially after sitting down following a day of movement States that at night, she often feels the need to keep moving her leg to get some relief She had her EMG and NCV done a couple of months ago and would like to know what they showed She denies any headaches or dizziness Denies any chest pains, no shortness of breath No nausea/vomiting, no abdominal pain No change in bowel habits noted States that her chronic low back pain and joint pains remain adequately controlled on her current medications She had her follow-up labs done last week - to discuss her results [facility] Medical History (Updated 07/19/25 @ 02:27 by Ruddy Lunsford MD) Lateral femoral cutaneous neuropathy Vitamin B12 deficiency (non anemic) Facet arthritis of lumbar region Allergic rhinitis Overweight (BMI 25.0-29.9) COVID-19 vaccine series completed White coat syndrome with hypertension Post-operative nausea and vomiting Dermatitis Obesity (BMI 30-39.9) Insomnia Closed fracture of left ankle Hematuria GERD without esophagitis Elevated LFTs Vitamin D deficiency Cervical spondylosis Benign essential hypertension Pure hypercholesterolemia Kidney stones HTN (hypertension) Surgical History Hx of colonoscopy History of fracture of left ankle History of lithotripsy Family History Father Heart attack Mother Breast cancer Sister Breast cancer Diabetes Social History Housing: Apartment Are you a primary in home caregiver to a significant other at home: No Do you presently have visiting nurse or other home services: No Alcohol intake: never Patient Tobacco Use Status: Never used Tobacco e-Cigarette/Vaping Use: Never Used Second Hand Smoke Exposure: No service: No Current occupational status: employed Current occupation: home care Cognitive needs: No Hearing needs: No Vision needs: No Female Reproductive History Menstrual Age of Menarche: 15 Questionnaire PHQ-9 Over the last 2 weeks, how often have you been bothered by any of the following problems? 1. Little interest or pleasure in doing things: not at all 2. Feeling down, depressed, or hopeless: not at all 3. Trouble falling or staying asleep, or sleeping too much: not at all 4. Feeling tired or having little energy: not at all 5. Poor appetite or overeating: not at all 6. Feeling bad about yourself - or that you are a failure or have let yourself or your family down: not at all 7. Trouble concentrating on things, such as reading the newspaper or watching television: not at all 8. Moving or speaking so slowly that other people could have noticed. Or the opposite - being so fidgety or restless that you have been moving around a lot more than usual: not at all 9. Thoughts that you would be better off or of hurting yourself in some way: not at all Total score: 2 Depression Screening Interpretation: Negative Depression Screening Done: Yes 68658 - PHQ-9 Billing: Yes Source: Developed by Drs. Danielito Chaudhari, Stephanie Dinh, Tung Avalos and colleagues, with an educational beck from [employer]. Thrive Questionnaire Date Thrive assessed: 07/17/25 I am a: Patient What is your living situation today?: I have a steady place to live Within the past 12 months, did the food you bought not last and you didn't have the money to get more?: Never true Within the past 12 months, did you worry whether your food would run out before you got money to buy more?: Never true Do you have trouble paying for medicines?: No Do you have trouble getting transportation to medical appointments?: No Do you have trouble paying your heating and electricity bill?: No Do you have trouble taking care of your child, family member or friend?: No Do you have trouble with day-to-day activities such as bathing, preparing meals, shopping, managing finances, etc.?: No Are you currently unemployed and looking for a job?: No Are you interested in more education?: No Please select the resources that you would like help with: None Currently or been in a relationship where the following occur: No concerns reported THRIVE Score: 0 AUDIT C Alcohol Use Questionnaire (AUDIT-C) 1. How often do you have a drink containing alcohol?: Never 3. How often do you have six or more drinks on one occasion?: Never Total Score: 0 Score Reviewed/Action Taken: Yes KRISTYN-7 AMB Questionnaire KRISTYN-7 Date KRISTYN - 7 assessed: 07/17/25 Feeling nervous, anxious, or on edge: 0 = Not at all Not being able to stop or control worryin = Not at all Worrying too much about different things: 0 = Not at all Trouble relaxin = Not at all Being so restless that it is hard to sit still: 0 = Not at all Becoming easily annoyed or irritable: 0 = Not at all Feeling afraid as if something awful might happen: 0 = Not at all Total KRISTYN-7 score (0-4 normal; 5-9 mild; 10-14 moderate; 15-21 severe): 0 Source: Developed by Drs. Danielito Chaudhari, Stephanie Dinh, Tung Avalos and colleagues, with an educational beck from [employer]. Review of Systems Const Denies chills, Reports difficulty sleeping, Denies fatigue, Denies fever(s) and Denies headache(s) ENT Denies dysphagia, Denies dizziness, Denies otalgia, Denies headache(s), Reports neck pain (on and off), Denies odynophagia and Denies sore throat Card Denies chest pain, Denies irregular heart rhythm, Denies palpitations and Denies dyspnea Resp Denies chest congestion, Denies cough and Denies dyspnea GI Denies abdominal pain, Denies constipation, Denies dysphagia, Denies heartburn, Denies diarrhea, Denies nausea, Denies odynophagia and Denies vomiting Denies difficulty voiding, Denies nocturia, Denies dysuria and Denies urinary urgency Musc Reports back pain (over the lower back - chronic), Reports arthralgias (right shoulder ), Reports neck pain (on and off) and Reports tingling (over the right thigh - see HPI) Skin/Breast Denies rash Neuro Denies dizziness, Denies headache(s), Reports tingling (over the right thigh - see HPI) and Denies paresthesias Psych Denies anxiety and Denies depression Endo Denies fatigue and Denies palpitations Munir/Lymph Denies easy bruising Physical exam (Primary Care) Vital Signs: Last Vital Signs Pulse 92 07/17/25 11:07 BP 140/80 H 07/17/25 11:07 Pulse Ox 98 07/17/25 11:07 Oxygen Delivery Method Room Air 07/17/25 11:07 BMI result Body Mass Index 30.8 Tobacco/Smoking Status: Tobacco use Status Tobacco use date assessed 07/17/25 07/17/25 11:11 Patient Tobacco Use Status Never used Tobacco 07/17/25 11:11 e-Cigarette/Vaping Use Never Used 07/17/25 11:11 Depression Screening Interpretation: Negative Thrive Assessment: Date of Thrive Assessment Date Thrive assessed 07/17/25 07/17/25 11:11 Currently or been in a relationship where the following occur: No concerns reported Const General: no acute distress and alert HENMT Ears: TM's normal bilaterally and EAC's normal Throat: Yes posterior oropharynx normal and Yes tonsils normal (no TP congestion) Neck Neck: Yes supple and No lymphadenopathy Thyroid: Thyroid normal Resp Auscultation: clear to auscultation bilaterally, no rales and no wheezes Cardio Rate: regular rate Rhythm: regular rhythm Heart sounds: no murmurs GI Palpation (GI): Soft to palpation and nontender Auscultation: normal bowel sounds General: Yes no CVA tenderness Back/Spine/Pelvis Back: no CVA tenderness Cervical Spine: Cervical spine tenderness (mild) Thoracic/Lumbar Spine: paraspinal muscle tenderness bilaterally in the upper thoracic, in the mid thoracic, in the lower thoracic, in the upper lumbar, in the mid lumbar and in the lower lumbar and lumbar spinal tenderness (more on the right side) Skin Rashes: no rashes Extrem General: Yes no clubbing, cyanosis or edema Right upper extremity: shoulder/upper arm Details: tenderness Location: of the A-C joint and normal ROM Results Reviewed Results Reviewed: Laboratory Tests 07/10/25 07/10/25 08:29 08:36 WBC 7.3 Hgb 12.7 Hct 40.9 Plt Count 217 Sodium 144 Potassium 4.7 Creatinine 0.78 Estimated GFR > 60 Fasting Glucose 105 H Hemoglobin A1c % 6.1 H Calcium 9.6 AST 42 H ALT 63 H Triglycerides 168 H Cholesterol 180 LDL Cholesterol, Calc 91 HDL Cholesterol 56 Vitamin B12 355 25-OH Vitamin D Total 34.2 TSH 1.51 Ur Specific [place] 1.025 Urine Protein Negative Urine Glucose (UA) Negative Urine Blood Trace H Urine Nitrite Negative Ur Leukocyte Esterase Negative Coding Level of Care Code Est Pt Level 4 (44115) Add On Problem Visit Only Diagnoses Pure hypercholesterolemia E78.00 Benign essential hypertension I10 Elevated LFTs R79.89 Cyst of right kidney N28.1 Cervical spondylosis M47.812 Facet arthritis of lumbar region M47.816 Vitamin D deficiency E55.9 GERD without esophagitis K21.9 Vitamin B12 deficiency (non anemic) E53.8 Allergic rhinitis, unspecified seasonality, unspecified trigger J30.9 Allergic rhinitis seasonality: unspecified Allergic rhinitis trigger: unspecified Lateral femoral cutaneous neuropathy, unspecified laterality G57.10 Laterality: unspecified laterality Dermatitis L30.9 Primary insomnia F51.01 Insomnia type: primary Obesity (BMI 30-39.9) E66.9 Additional Codes PHQ-9 - 15639 - PHQ-9 Billing: Yes ([id number]) Assessment & Plan Assessment & Plan (1) Pure hypercholesterolemia: Code(s): E78.00 - Pure hypercholesterolemia, unspecified Category: Medical Plan: Results of her labs done last week reviewed and discussed with patient Reinforced low cholesterol diet Continue Rosuvastatin 5 mg QD - she has been tolerating her Rx with no issues (she experienced increased back pain while on Atorvastatin 10 mg in the past) Will recheck her labs and fasting lipids again in 3 months for follow up (2) Benign essential hypertension: Code(s): I10 - Essential (primary) hypertension Category: Medical Plan: Reinforced low sodium diet - goal is systolic BP of at least 120 to 130 mm or less Her blood pressure is again slightly elevated today Patient appears to have some degree of white coat syndrome Continue Lisinopril 30 mg QD for now She is instructed to continue monitoring her blood pressure regularly and if it continues to stay high at her next appointment, will consider increasing her Lisinopril up to 40 mg QD (3) Elevated LFTs: Code(s): R79.89 - Other specified abnormal findings of blood chemistry Category: Medical Plan: Her LFTs are still elevated on her recent labs and are mostly unchanged from previous She had hepatitis testing back in February 2024, which came back negative Patient reports NO acute GI symptoms, including abdominal pain Abdominal US done back in October 2024 revealed (+) slightly enlarged liver, especially the right lobe, as well as cholelithiasis and a right upper pole kidney cyst that has increased from 2019 Will continue to monitor her LFTs regularly (4) Cyst of right kidney: Code(s): N28.1 - Cyst of kidney, acquired Category: Medical Plan: This was last seen on her abdominal US back in October 2024 - right upper pole kidney cyst that has increased from 2019 Will recheck this with a renal US at her next follow up appt in 3 months (5) Cervical spondylosis: Code(s): M47.812 - Spondylosis without myelopathy or radiculopathy, cervical region Category: Medical Plan: Continue Ibuprofen 600 mg TID with food PRN, Tizanidine 4 mg TID PRN and Tramadol 50 mg TID PRN (6) Facet arthritis of lumbar region: Code(s): M47.816 - Spondylosis without myelopathy or radiculopathy, lumbar region Category: Medical Plan: Mostly over the right lower back - pain/symptoms are due to lumbar spine DDD and facet arthritis Lumbar spine x-rays done back in 2012 at [facility] were normal but repeat lumbar spine x-rays done in 2021 revealed (+) mild disc height loss at L5-S1 as well as mild L5-S1 facet arthropathy She was referred to physical therapy but because of her elbow injury, she was never able to start her PT Reinforced activity and weight-lifting restrictions States that she has Ibuprofen and Tramadol to take when needed for pain Have offered to refer her to pain management but patient declined as she does not want to get any injections into her lower back at this time Because of her increasing low back pain lately, she was previously sent for repeat lumbar spine and SI joint x-rays for further evaluation - x-rays done back in December 2024 revealed (+) multiple level degenerative disc and facet arthritis with no acute findings (7) Vitamin D deficiency: Code(s): E55.9 - Vitamin D deficiency, unspecified Category: Medical Plan: Continue Vitamin D2 07405 units once a week Reassured that her BMD (index) done in June 2022 came back normal - will recheck in 3 years for follow up and we will order this at her next follow up appointment early next year (8) GERD without esophagitis: Code(s): K21.9 - Gastro-esophageal reflux disease without esophagitis Category: Medical Plan: Dietary restrictions reinforced Continue Famotidine 40 mg Q HS PRN and Omeprazole 20 mg QD (9) Vitamin B12 deficiency (non anemic): Code(s): E53.8 - Deficiency of other specified B group vitamins Category: Medical Plan: Continue Vitamin B12 tablets 1000 mcg QD MMA level checked a few months ago came back normal (10) Allergic rhinitis: Code(s): J30.9 - Allergic rhinitis, unspecified Category: Medical Qualifiers: Allergic rhinitis seasonality: unspecified Allergic rhinitis trigger: unspecified Qualified Code(s): J30.9 - Allergic rhinitis, unspecified Plan: Continue Loratadine 10 mg QD PRN If symptoms are not adequately controlled on oral antihistamine alone, can add Fluticasone nasal spray QD PRN (11) Lateral femoral cutaneous neuropathy: Comment: bilateral, right worse than the left Code(s): G57.10 - Meralgia paresthetica, unspecified lower limb Category: Medical Qualifiers: Laterality: unspecified laterality Qualified Code(s): G57.10 - Meralgia paresthetica, unspecified lower limb Plan: EMG and NCV done a couple of months ago in May 2025 revealed findings of moderately severe bilateral, right more than left, lateral femoral cutaneous sensory neuropathy. There was also limited evidence of right lower lumbar radiculopathy We will go ahead and start patient on Gabapentin 100 mg BID to help alleviate her symptoms (12) Dermatitis: Code(s): L30.9 - Dermatitis, unspecified Category: Medical Plan: Continue Mometasone 0.1% cream QD PRN (13) Insomnia: Code(s): G47.00 - Insomnia, unspecified Category: Medical Qualifiers: Insomnia type: primary Qualified Code(s): F51.01 - Primary insomnia Plan: Sleep hygiene reinforced Continue Zolpidem 5 mg Q HS PRN (she was experiencing increased headaches while on Trazodone) (14) Obesity (BMI 30-39.9): Code(s): E66.9 - Obesity, unspecified Category: Medical Plan: Reinforced diet/exercise as tolerated/lose weight Plan Follow up in 3 months Orders: Orders Complete Blood Count Auto Diff 3 Months D64.9 - Anemia, unspecified Comprehensive [place]. Panel Fast 3 Months E78.00 - Pure hypercholesterolemia, unspecified Lipid Panel 3 Months E78.00 - Pure hypercholesterolemia, unspecified TSH reflex Free T4 3 Months E78.00 - Pure hypercholesterolemia, unspecified Vitamin B12 and Folate 3 Months E53.8 - Deficiency of other specified B group vitamins UA CC w/rflx Micro + Cult 3 Months R30.0 - Dysuria Vitamin D 25-OH Total 3 Months E55.9 - Vitamin D deficiency, unspecified Medications: New gabapentin 100 mg PO BID 60 caps 3RF neuropathy 30 days
[2025-07-17 11:07] VITALS: BP 140/80; PULSE 92; O2SAT 98; BMI 30.8
== END 2025-07-17 11:32 | disposition home or self-care (01) ==
LOC: HO.HMCH 11:00
PROVIDERS: PCP Internal Medicine; Visit Provider Internal Medicine
DX: E78.00 Pure hypercholesterolemia, unspecified (principal); I10 Essential (primary) hypertension; E66.9 Obesity, unspecified; Z68.30 Body mass index [BMI] 30.0-30.9, adult; R79.89 Other specified abnormal findings of blood chemistry; N28.1 Cyst of kidney, acquired; M47.812 Spondylosis without myelopathy or radiculopathy, cervical region; M47.816 Spondylosis without myelopathy or radiculopathy, lumbar region; E55.9 Vitamin D deficiency, unspecified; K21.9 Gastro-esophageal reflux disease without esophagitis; E53.8 Deficiency of other specified B group vitamins; J30.9 Allergic rhinitis, unspecified; G57.10 Meralgia paresthetica, unspecified lower limb; L30.9 Dermatitis, unspecified; F51.01 Primary insomnia

== ENCOUNTER → 2025-07-17 10:59 | Outpatient (BNVA) | payer OTHER, SELFPAY | PROVIDERS: PCP Internal Medicine; Visit Provider Internal Medicine | DX: I10 Essential (primary) hypertension (principal); R79.89 Other specified abnormal findings of blood chemistry; E78.00 Pure hypercholesterolemia, unspecified; N28.1 Cyst of kidney, acquired; M47.812 Spondylosis without myelopathy or radiculopathy, cervical region; M47.816 Spondylosis without myelopathy or radiculopathy, lumbar region; E55.9 Vitamin D deficiency, unspecified; K21.9 Gastro-esophageal reflux disease without esophagitis; E53.8 Deficiency of other specified B group vitamins; J30.9 Allergic rhinitis, unspecified; G57.10 Meralgia paresthetica, unspecified lower limb; L30.9 Dermatitis, unspecified; E66.9 Obesity, unspecified; F51.01 Primary insomnia; Z68.30 Body mass index [BMI] 30.0-30.9, adult | CPT/HCPCS: 96127; 99212 ==